=== PATIENT | male | born 1935 | race Caucasian/White ===

== ENCOUNTER 2017-01-31 09:23 | Emergency (ER) | payer MEDICARE ==
[2017-01-31] MEDS ORDERED: Ketorolac INJ* 60 MG/2 ML VIAL IM ONE (10:54)
[2017-01-31] MEDS ORDERED: LORazepam TAB(*) 1 MG PO ONE (10:54)
[2017-01-31] MEDS ORDERED: Morphine INJ* 4 MG/ML 1 ML SYRINGE IM ONE (12:09)
[2017-01-31 14:38] VITALS: BP 127/74
--- NOTE | 2017-01-31 14:50 | ED ---
I, Oh,Sobrian, scribed for Nestor Mosquera MD on 01/31/17 at 1113 . Back Pain - HPI Summary HPI Summary: This 81 y/o male presents to ED via ambulance for acute on chronic left lower back pain since 3 days ago. No radiation of pain down legs. Pt states that he "twisted wrong" at time of onset, and pain has been gradually worsening since then. Pt had trouble ambulating this morning due to pain this morning, and decided to call ambulance. Negative bowel/urinary incontinence or dysuria. Walking and leg movement make the pain worse. Pt took oxycodone this morning 0700 AM without much relief. Pt is noted with back belt in ED room. PMHx is significant for known chronic back pain. - History of Current Complaint Chief Complaint: EDBackInjuryPain Stated Complaint: LOWER BACK PAIN Time Seen by Provider: 01/31/17 10:07 Hx Obtained From: Patient, Medical Records Onset/Duration: Still Present Onset/Duration: Still Present Timing: Constant Back Pain Location: Is Discrete @ - left lower back pain Pain Intensity: 9 Pain Scale Used: 0-10 Numeric Character: Spasmodic Aggravating Symptom(s): Movement, Walking Alleviating Symptom(s): Rest Associated Signs And Symptoms: Negative: Bladder Incontinence, Bowel Incontinence - Allergies/Home Medications Allergies/Adverse Reactions: Allergies Allergy/AdvReac Type Severity Reaction Status Date / Time No Known Allergies Allergy Verified 04/13/14 06:24 PMH/Surg Hx/FS Hx/Imm Hx Cardiovascular History: Reports: Hx Pacemaker/ICD Infectious Disease History: No Infectious Disease History: Denies: Traveled Outside the [place] in Last 30 Days - Family History Known Family History: Positive: Cardiac Disease - Social History Alcohol Use: None Substance Use Type: Reports: None Smoking Status (MU): Never Smoked Tobacco Review of Systems Negative: Fever Negative: dysuria, incontinence Positive: Other - acute on chronic left lower back pain All Other Systems Reviewed And Are Negative: Yes Physical Exam Triage Information Reviewed: Yes Vital Signs On Initial Exam: Initial Vitals Temp Pulse Resp BP Pulse Ox 98.7 F 86 16 142/79 98 01/31/17 09:29 01/31/17 09:29 01/31/17 09:29 01/31/17 09:29 01/31/17 09:29 Vital Signs Reviewed: Yes Appearance: Positive: Well-Appearing, Pain Distress Skin: Positive: Warm, Skin Color Reflects Adequate Perfusion, Dry Head/Face: Positive: Normal Head/Face Inspection Eyes: Positive: Normal ENT: Positive: Normal ENT inspection Neck: Positive: Supple, Nontender Respiratory/Lung Sounds: Positive: Breath Sounds Present Cardiovascular: Positive: RRR, Pulses are Symmetrical in both Upper and Lower Extremities Abdomen Description: Positive: Nontender, Soft Neurological: Positive: Other - Positive right straight leg -- pain at left lower back with raise of RLE and LLE. Psychiatric: Positive: Affect/Mood Appropriate AVPU Assessment: Alert - Arianna Coma Scale Coma Scale Total: 15 Diagnostics - Vital Signs Vital Signs Temp Pulse Resp BP Pulse Ox 01/31/17 09:31 98.7 F 86 16 142/79 98 01/31/17 09:29 98.7 F 86 16 142/79 98 - Laboratory Lab Statement: Any lab studies that have been ordered have been reviewed, and results considered in the medical decision making process. Re-Evaluation - Re-Evaluation First Eval Re-Evaluation Time: 13:51 Comment: in room to re-evaluate pt. Pt's pain is resolved after morphine treatment. Plan of care involving discharge and outpatient f/u is discussed, and pt is agreeable. Back Pain Course/Dx - Course Course Of Treatment: Mr. Bee wrenched his back last week and it has been gradually worsening to the point that he was unable to get up and move around today. He was neurologically intact here and got significant relief with pain meds and muscle relaxers. - Diagnoses Provider Diagnoses: Acute exacerbation of chronic low back pain, Low back strain Discharge - Discharge Plan Condition: Stable Disposition: HOME Prescriptions: LORazepam TAB(*) [Ativan TAB(*)] 1 mg PO Q6H PRN #20 tab MDD 4 PRN Reason: Pain oxyCODONE/Acetamin 5/325 MG* [Percocet 5/325 TAB*] 1 tab PO Q6H PRN #20 tab MDD 4 PRN Reason: Pain Patient Education Materials: Low Back Strain (ED), Lorazepam (By mouth), Oxycodone/Acetaminophen (By mouth) Referrals: Chun West MD [Primary Care Provider] - 2 Days The documentation as recorded by the Saroj clifton Soohyun accurately reflects the service I personally performed and the decisions made by me, Nestor Mosquera MD.
== END 2017-01-31 14:38 | disposition home or self-care (01) ==
LOC: ED 09:23
DX: S39.012A Strain of muscle, fascia and tendon of lower back, initial encounter (principal); M54.5 Low back pain; X50.9XXA Other and unspecified overexertion or strenuous movements or postures, initial encounter; Y93.9 Activity, unspecified; Y92.9 Unspecified place or not applicable
CPT/HCPCS: 96372; 99282; A9270-GY; J1885; J2270

== ENCOUNTER 2018-10-25 01:07 | Emergency (ER) | payer MEDICARE ==
[2018-10-25] MEDS ORDERED: Lidocaine PATCH 5%* 1 PATCH TRANSDERM ONE (01:27)
[2018-10-25] MEDS ORDERED: Morphine 4 MG/ML VIAL (1 ml) 4 MG/ML VIAL IM ONE (01:27)
--- NOTE | 2018-10-25 01:51 | ED ---
Back Pain - HPI Summary HPI Summary: The patient is an 83 y/o M presenting to [facility] accompanied by daughter with a chief complaint of mid lumbar back pain worse on the right than left starting onset one week ago with gradual worsening intermittently. The stabbing pain is currently rated 8/10 in severity. The pain is aggravated by movement and alleviated by rest. He denies numbness, tingling, changes in urination, and weakness. He has experienced this pain before and has taken Oxycodone and Lorazepam before; he has taken one Oxycodone a few days ago and arthritis Tylenol at 2300 last night. He is concerned because the pain he had experienced before tended to relieve itself. He denies known previous back injury. - History of Current Complaint Chief Complaint: EDBackInjuryPain Stated Complaint: BACK PAIN Time Seen by Provider: 10/25/18 01:38 Hx Obtained From: Patient Onset/Duration: Sudden Onset, Lasting Days - one week, Still Present Onset/Duration: Started Days Ago, Atraumatic, Still Present Timing: Lasting Days Back Pain Location: Is Discrete @ - lumbar back, worse on right than left Severity Initially: Severe Severity Currently: Severe Pain Intensity: 8 Pain Scale Used: 0-10 Numeric Character: Sharp Aggravating Symptom(s): Movement Alleviating Symptom(s): Rest Associated Signs And Symptoms: Positive: Other - NEGATIVE: changes in urination. Negative: Weakness, Numbness, Tingling - Allergies/Home Medications Allergies/Adverse Reactions: Allergies Allergy/AdvReac Type Severity Reaction Status Date / Time No Known Allergies Allergy Verified 04/13/14 06:24 PMH/Surg Hx/FS Hx/Imm Hx Cardiovascular History: Reports: Hx Atrial Fibrillation, Hx Pacemaker/ICD Infectious Disease History: No Infectious Disease History: Denies: Traveled Outside the [place] in Last 30 Days - Family History Known Family History: Positive: Cardiac Disease - Social History Alcohol Use: None Substance Use Type: Reports: None Smoking Status (MU): Never Smoked Tobacco Review of Systems Positive: other - NEGATIVE: changes in urination Positive: Other - mid-low back pain, right side worse than left Negative: Weakness, Numbness - or tingling All Other Systems Reviewed And Are Negative: Yes Physical Exam - Summary Physical Exam Summary: Appearance: well appearing, no pain distress Skin: warm, dry, reflects adequate perfusion Head/face: normal Eyes: EOMI, BUTCH ENT: mucous membranes moist Neck: supple, non-tender Respiratory: CTA, breath sounds present Cardiovascular: RRR, pulses symmetrical Abdomen: non-tender, soft, Ventral hernia, no pulsatile mass Bowel Sounds: present Musculoskeletal: strength/ROM intact, Point tenderness on right lateral mid-back Neuro: normal, sensory motor intact, A&Ox3 Triage Information Reviewed: Yes Vital Signs On Initial Exam: Initial Vitals Temp Pulse Resp BP Pulse Ox 97.1 F 77 16 170/94 98 10/25/18 01:11 10/25/18 01:11 10/25/18 01:11 10/25/18 01:11 10/25/18 01:11 Vital Signs Reviewed: Yes Diagnostics - Vital Signs Vital Signs Temp Pulse Resp BP Pulse Ox 10/25/18 01:31 18 10/25/18 01:22 79 171/80 99 10/25/18 01:11 97.1 F 77 16 170/94 98 - Laboratory Lab Statement: Any lab studies that have been ordered have been reviewed, and results considered in the medical decision making process. Back Pain Course/Dx - Course Course Of Treatment: Nurses notes reviewed. Patient with a history of low back pain presents with right-sided muscular pain. It limits his range of motion but was improved significantly with Lidoderm patch and treatment for pain. His range of motion has returned. No pulsatile abdominal mass and no radicular signs. Neuromuscularly intact discharged with symptom control to follow-up with primary care physician and chiropractor. - Diagnoses Differential Diagnosis/HQI/PQRI: Positive: Aneurysm, Herniated Disc, Strain, Sprain Provider Diagnoses: Lumbar back pain Discharge - Sign-Out/Discharge Documenting (check all that apply): Patient Departure - Patient will be discharged home. Patient Received Moderate/Deep Sedation with Procedure: No - Discharge Plan Condition: Improved Disposition: HOME Prescriptions: Cyclobenzaprine (NF) [Cyclobenzaprine 5 MG (NF)] 5 mg PO TID PRN #10 tab PRN Reason: muscle pain traMADol TAB* [Ultram*] 50 mg PO Q8HR #8 tab MDD 3 Patient Education Materials: Low Back Strain (ED) Referrals: Chun West MD [Primary Care Provider] - Additional Instructions: Ice, range of motion exercises, Tylenol for baseline pain. Call your doctor first thing in the morning to schedule prompt follow-up. point of care technician may help. Return with fever, difficulty urinating, uncontrolled pain, worse or other concerns. - Billing Disposition and Condition Condition: IMPROVED Disposition: Home - Attestation Statements Document Initiated by Lynsey: Yes Documenting Scribe: Aleah Powers Provider For Whom Lynsey is Documenting (Include Credential): Dr. John House MD Scribe Attestation: Aleah Rachel scribed for Dr. John House MD on 10/25/18 at 0408. Scribe Documentation Reviewed: Yes Provider Attestation: The documentation as recorded by the Aleah clifton accurately reflects the service I personally performed and the decisions made by me, Dr. John House MD Status of Scribe Document: Viewed
--- OUTSIDE RECORDS SUMMARY | 2018-10-25 01:56 | XMS REPORT | Continuity of Care Document ---
:1935 External Reference #:[id number] Author Name Sandra Zuluaga Care Team Providers Name Role Phone Aman Segal III, MD Primary Care Physician Unavailable Payers Date Identification Numbers Payment Provider Subscriber Policy Number: [id number] Medicare Carolyn María Moe PayID: [id number] [address] [place] [address] Policy Number: [id number] [facility] Carolyn Rosa PayID: [id number] [address] [place] [address] Expires: 2017 Policy Number: [id number] [facility] [employer] Carolyn Rosa Group Number: [id number] [address] [address] PayID: [id number] [place] [address] Advance Directives Description No Information Available Problems Active Problems Provider Date Paroxysmal ventricular tachycardia Zeina España M.D. Onset: 11/04/2013 Chronic atrial fibrillation Zeina España M.D. Onset: 10/08/2015 Complete atrioventricular block Zeina España M.D. Onset: 04/21/2016 Chronic diastolic heart failure Zeina España M.D. Onset: 04/21/2016 Anticoagulant therapy Chun Reynolds M.D.,FACP Onset: 06/07/2007 Benign essential hypertension Chun Reynolds M.D.,FACP Onset: 06/07/2007 Mixed hyperlipidemia Chun Reynolds M.D.,FACP Onset: 12/05/2007 Impaired fasting glycaemia Chun Reynolds M.D.,FACP Onset: 06/01/2010 Low back pain Chun Reynolds M.D.,FACP Onset: 10/14/2010 Cardiac pacemaker in situ Zeina España M.D. Onset: 11/04/2013 Note: not AICD Localized, primary osteoarthritis of the shoulder Law Stubbs MD Onset: region Inactive Problems Atrial flutter Chun Reynolds M.D.,FACP Onset: 06/07/2007 Inactive: 03/30/2015 Atrial fibrillation Chun Reynolds M.D.,FACP Onset: 01/06/2011 Inactive: 03/30/2015 Congestive heart failure Zeina España M.D. Onset: 11/04/2013 Inactive: 10/30/2016 Atrial fibrillation and flutter Chun Reynolds M.D.,FACP Onset: 2014 Inactive: 10/30/2016 Pure hypercholesterolemia Chun Reynolds M.D.,FACP Onset: 05/19/2011 Inactive: 10/30/2016 Sinus node dysfunction Zeina España M.D. Onset: 10/08/2015 Inactive: 10/30/2016 Localized, primary osteoarthritis Law Stubbs MD Onset: 10/24/2017 Inactive: 11/29/2017 Family History Date Family Member(s) Observation Comments : (age 76 Years) Father due to CAD : (age 89 Years) Mother due to Leukemia First Son detached retina Siblings 1 First Sister Cancer, Breast First Sister Osteoporosis ?hip fracture Social History Type Date Description Comments Sex Unknown Marital Status Lives With Alone Occupation Retired Occupation Registered Nurse Nursery Cigarette Use Quit 45 Years Ago ETOH Use 12/06/2016 Denies alcohol use Recreational Drug Use Denies Drug Use Tobacco Use Start: Unknown End: Patient is a former smoked for 15 Unknown smoker years, quit in 1962 Smoking Status Reviewed: 10/22/18 Patient is a former smoked for 15 smoker years, quit in 1962 Exercise Type/Frequency Does not exercise Allergies, Adverse Reactions, Alerts Active Allergies Reaction Severity Comments Date Kenalog BP elevated for 2 months 12/06/2016 Inactive Allergies NKDA 06/07/2007 Medications Active Medications SIG Qnty Indications Ordering Date Provider Dutasteride Take 1 Capsule By 30caps N40.0 Chun Mcfarland 07/27/2018 0.5mg Mouth Every Day Lulu Reynolds,EDMUNDP Capsules Viagra take one tablet 14tabs N52.01 Chun Mcfarland 06/08/2018 100mg Tablets at least 30 Lulu Reynolds,FACP mintues prior to intercourse. Lorazepam one tab by mouth 30tabs F51.8 Chun Mcfarland 03/14/2017 0.5mg Tablets every day as Lulu Reynolds,FACP needed Atorvastatin Calcium take 1 tablet by 90tabs Chun Mcfarland 12/06/2016 mouth at bedtime Lulu Reynolds,EDMUNDP 10mg Tablets Carvedilol 1 by mouth twice 180tabs I10 Zeina España, 05/24/2016 6.25mg a day M.DPhillip Tablets Aldactone take one tab 4 90tabs Zeina España, 05/10/2016 25mg Tablets days a week M.DPhillip Colestipol HCL take 1 tablet 180tabs Zeina España, 01/12/2016 1gm twice a day M.DPhillip Tablets Esomeprazole take 1 capsule 90caps Chun Mcfarland 04/22/2015 Magnesium daily Lulu Reynolds,EDMUNDP 20mg Capsules DR Celecoxib take 1 capsule 180caps Chun Mcfarland 03/15/2015 200mg twice a day as Lulu Reynolds,EDMUNDP Capsules needed ( taking 1 tablet every day generally ) Furosemide take 2 tablets on 320tabs Aman E. 05/03/2014 20mg Tablets mondayLuzma M.D. monday, monday and monday and take 3 tablets on monday, , monday Pradaxa take 1 capsule 180caps I48.92 Chun Mcfarland 10/14/2010 150mg Capsules twice a day Lulu Reynolds FACP Aspirin 1 po qd 50tabs Chun Mcfarland 05/22/2009 81mg Tablets Lulu Reynolds,EDMUNDP Sotalol HCL take one-half 90tabs Zeina España, 05/22/2009 80mg (1/2) tablet Lulu Tablets twice a day Coq-10 1 by mouth every 90caps Unknown 100mg Capsules day History Medications Iron 1 by mouth every 30tabs Chun Mcfarland 06/20/2017 - 240(27Fe) mg day Lulu Reynolds,[facility] 11/29/2017 Tablets Norvasc 1 by mouth every 90tabs Zeina España, 09/09/2016 - 5mg Tablets day M.DPhillip 11/23/2016 Viagra 1 by mouth as 10tabs N52.01 Chun Mcfarland 06/13/2016 - 50mg Tablets needed Lulu Reynolds,FACP 06/08/2018 Pravastatin Sodium 1 tablet daily at 90tabs Mary Sharma, 06/13/2016 - bedtime N.P. 12/06/2016 40mg Tablets Cephalexin take one capsule 21caps M79.675 Keaton Walsh NP 01/15/2016 - 500mg every 8 hours for 01/23/2016 Capsules 7 days Magnesium Oxide by mouth every 30caps G47.62 Chun Mcfarland 12/08/2015 - evening Lulu Reynolds,FACP 04/23/2016 400mg Capsules Cephalexin one 3 times daily 12tabs Z95.0 Zeina España, 10/08/2015 - 500mg for 4 days, M.DPhillip 10/18/2015 Tablets start after pacemaker generator change. Viagra 1 by mouth as 10tabs N52.01 Chun Mcfarland 06/10/2015 - 50mg Tablets needed Lulu Reynolds,[facility] 04/23/2016 Prednisone 5tabx 2days,4 30tabs 729.5 Arya Ramos NP 02/25/2015 - 10mg [id number] 04/23/2015 Tablets [id number] ays,1tabxday. Colestid po bid 180tabs Chun Mcfarland 07/18/2013 - 1gm Id#[id number] Lulu Reynolds,[facility] 12/04/2013 Tablets Lorazepam take 1 tablet as 30tabs F51.8 Mary Sharma, 10/30/2012 - 0.5mg needed for N.P. 02/02/2017 Tablets anxiety. Lorazepam 1/2-1 tab po qhs 30tabs 307.49 Amy De La Vega, 10/16/2012 - 1mg N.P. 10/30/2012 Tablets Lisinopril Take One-Half 45tabs Amy De La Vega, 06/12/2012 - 20mg (1/2) Tablet Daily N.P. 04/23/2015 Tablets Debrox 5 drops in each 1bottle 380.4 Chun Mcfarland 12/06/2011 - 6.5% ear every 3 months [facility]ulu [facility] 06/06/2012 Solution Furosemide po qam Chun Mcfarland 11/17/2011 - 40mg Lulu [facility] 11/17/2011 Tablets Atorvastatin 2 po qd 150tabs 530.81 Unknown 11/17/2011 - Calcium 10/30/2012 10mg Tablets Pravastatin Sodium Take 1 Tablet AT 90tabs Chun Mcfarland 05/19/2011 - Bedtime Lulu Reynolds,[facility] 06/13/2016 20mg Tablets Celebrex take 1 capsule 90capish Mcfarland 03/15/2011 - 200mg daily as needed ( Lulu Reynolds,[facility] 03/15/2015 Capsules pt taking daily) Celebrex 1 po qd 30caps Chun Mcfarland 01/06/2011 - 100mg Lulu Reynolds,[facility] 03/15/2011 Capsules Celebrex 1 po qd 30caps Chun Mcfarland 01/06/2011 - 200mg Lulu [facility] 01/06/2011 Capsules Doxycycline Hyclate 1 po bid 14tabs Aman Saavedra 12/24/2010 - Lulu Segal 01/06/2011 100mg Tablets Celebrex 1 po qd 30caps Chun Mcfarland 12/07/2010 - 200mg [facility]ulu [facility] 01/06/2011 Capsules Pravastatin Sodium 1 po qpm 90tabs Aman Saavedra 06/01/2010 - Lulu Segal 05/19/2011 40mg Tablets Fish Oil 1 po bid Chun Mcfarland 06/01/2010 - 1000mg Lulu Reynolds,[facility] 06/06/2012 Capsules Pravastatin Sodium 1 po qhs 90tabs Chun Mcfarland 05/22/2009 - Id#[id number] Lulu Reynolds,[facility] 06/01/2010 20mg Tablets Lamisil po every day 30tabs 110.1 Chun Mcfarland 05/22/2009 - 250mg Lulu Reynolds,[facility] 11/25/2009 Tablets Atenolol Take 1 Tablet 180tabs I10 Chun Mcfarland 05/22/2009 - 25mg Twice A Day Lulu Reynolds,[facility] 05/24/2016 Tablets Skelaxin 1 po tid prn 30tabs 724.9 Chun Mcfarland 03/30/2009 - 800mg Lulu Reynolds,[facility] 05/22/2009 Tablets Lyrica 1 po bid 14caps 724.3 Chun Mcfarland 04/14/2008 - 50mg Lulu Reynolds,[facility] 05/19/2008 Capsules Clarinex 2 po qd prn 90tabs Aman Saavedra 04/14/2008 - 5mg Lulu Segal 04/17/2014 Tablets Nexium Take 1 Capsule 90caps Chun Mcfarland 12/05/2007 - 20mg Daily Lulu Reynolds,[facility] 04/22/2015 Capsules Lisinopril Take One-Half 45tabs Chun Mcfarland 12/05/2007 - 20mg (1/2) Tablet Daily Lulu Reynolds,[facility] 06/06/2012 Tablets Avodart take 1 capsule 30caps N40.0 Aman Saavedra 12/05/2007 - 0.5mg daily Lulu Segal 07/27/2018 Capsules Avodart Take 1 Capsule 90caps 600.90 Chun Mcfarland 12/05/2007 - 0.5mg Daily Lulu Reynolds,[facility] 06/06/2012 Capsules Avodart 1 po qd 90caps 600.90 Chun Mcfarland 12/05/2007 - 0.5mg Id#[id number] Lulu Reynolds,[facility] 08/12/2011 Capsules Aspir-81 1 PO qd Chun Mcfarland 12/05/2007 - 81mg Lulu Reynolds,[facility] 05/22/2009 Tablets Atenolol 1 po qd 90tabs Chun Mcfarland 12/05/2007 - 25mg Lulu Reynolds,FACP 10/20/2008 Tablets Nifedipine ER 1 po qam 90tabs Aman Saavedra 12/05/2007 - 30mg Id#[id number] Lulu Segal 05/06/2012 Tablets ER 24HR Sotalol HCL bid po 30tabs Chun Mcfarland 06/07/2007 - 120mg Lulu Reynolds,FACP 05/22/2009 Tablets Simvastatin 1 po qhs 90tabs Chun Mcfarland 06/07/2007 - 40mg Lulu Reynolds,FACP 03/30/2009 Tablets Warfarin Sodium take 1 tablet 90taclarence Mcfarland 06/07/2007 - 5mg every evening or Lulu Reynolds,[facility] 10/29/2010 Tablets as directed Id#[id number] Colestid po bid 180tabs Aman Saavedra 06/07/2007 - 1gm Id#[id number] Lulu Segal 05/06/2012 Tablets Oxycodone-Acetamino 1-2 tabs by mouth Unknown - phen every 4-6 hours as 03/14/2017 5-325mg needed for pain Tablets Lorazepam 1 by mouth daily F51.8 Unknown - 1mg 03/14/2017 Tablets Nifedipine ER Take 1 Tablet 90tabs Chun Mcfarland - Osmotic Release Every Morning Lulu Reynolds,[facility] 04/28/2016 30mg Tablets ER 24HR Clarinex 2 by mouth every Unknown - 5mg day prn 07/03/2015 Tablets Micronized Take 1 Tablet 180tabs Chun Mcfarland - Colestipol HCL Twice A Day Lulu Reynolds,[facility] 01/12/2016 1gm Tablets Fluorouracil apply twice day Unknown - 0.5% 04/23/2015 Cream Furosemide 1 po qd Unknown - 40mg 05/03/2014 Tablets Furosemide Take 3 tabs every 150tabs Unknown - 20mg other day, 04/02/2014 Tablets alternating with 2 tabs Zyclara prn Unknown - 3.75% Cream 03/07/2014 Hydrocodone/Acetami 1 qid prn 120tabs Chun Mcfarland - johnnie Reynolds M.D.,FACP 01/06/2011 5-500mg Tablets Medications Administered in Office Medication SIG Qnty Indications Ordering Provider Date Injection Hyaluronan Or Helena Noland PA-C 11/08/2017 Derivative, Euflexxa Per Dose Injection Injection Hyaluronan Or Law Stubbs MD 10/31/2017 Derivative, Euflexxa Per Dose Injection Injection Hyaluronan Or Law Stubbs MD 10/24/2017 Derivative, Euflexxa Per Dose Injection Triamcinolone (Kenalog) Law Stubbs MD 04/21/2016 Injection Triamcinolone (Kenalog) Law Stubbs MD 04/21/2016 Injection Triamcinolone (Kenalog) Law Stubbs MD 11/12/2015 Injection Inj, Regadenoson, 0.1 MG Vincent Royal M.D., 04/29/2014 Injection FACC, FASNC Technetium TC 99M Vincent Royal M.D., 04/29/2014 Tetrofosmin, Per Unit Dose Up FACC, FASNC To 40 Millicuries Injection Technetium TC 99M Zeina España M.D. 04/29/2014 Tetrofosmin, Per Unit Dose Up To 40 Millicuries Injection Immunizations CPT Code Status Date Vaccine Lot # [id number] Given 04/03/2018 Influenza Virus Vaccine, Quadrivalent, Split, Preservative Free [id number] Given 03/15/2017 Influenza Virus 3Yrs & Over Q2035 Given 03/30/2016 Afluria Vaccine 33631 Given 06/10/2015 Pneumococcal Conjugate Vaccine 13 Valent For [id number] Intramuscular Use Q2035 Given 03/28/2015 Afluria Vaccine Q2037 Given 04/01/2014 Fluvirin Im 3Yrs And Older Q2035 Given 05/01/2013 Afluria Vaccine [id number] Given 04/11/2013 Zoster (Zostavax) Q2037 Given 05/01/2012 Fluvirin Im 3Yrs And Older [id number] Q2037 Given 05/01/2012 Fluvirin Im 3Yrs And Older 08775 Given 11/17/2011 Tdap - Tetanus/Diptheria/Acellular Pertussis [id number] Q2038 Given 04/11/2011 Fluzone Vaccine [id number] Given 04/26/2010 Influenza Virus 3Yrs & Over [id number] 15861 Given 05/22/2009 Influenza Virus Vaccine, Pandemic Formulation [id number] 61274 Given 04/14/2008 Influenza Virus 3Yrs & Over 02145 Given 04/14/2008 Influenza Virus 3Yrs & Over [id number] 71905 Given 04/25/2007 Pneumonia Vaccine [id number] Refused 08/12/2009 Influenza Virus 3Yrs & Over Vital Signs Date Vital Result Comment 10/22/2018 1:23pm Height 70 inches 5'10" Weight 212.00 lb Heart Rate 83 /min BP Systolic 118 mmHg BP Diastolic 78 mmHg Body Temperature 97.5 F O2 % BldC Oximetry 97 % BMI (Body Mass Index) 30.4 kg/m2 05/22/2018 11:32am Height 70 inches 5'10" Weight 214.00 lb with shoes Heart Rate 76 /min BP Systolic Sitting 110 mmHg Lue reg cuff BP Diastolic Sitting 64 mmHg Lue reg cuff BP Systolic Standing 110 mmHg Lue reg cuff BP Diastolic Standing 70 mmHg Lue reg cuff Respiratory Rate 16 /min BMI (Body Mass Index) 30.7 kg/m2 12/15/2017 2:47pm Height 70 inches 5'10" Weight 213.00 lb with shoes Heart Rate 80 /min BP Systolic Sitting 134 mmHg Rue reg cuff BP Diastolic Sitting 76 mmHg Rue reg cuff BP Systolic Standing 136 mmHg Rue reg cuff BP Diastolic Standing 80 mmHg Rue reg cuff Respiratory Rate 16 /min BMI (Body Mass Index) 30.6 kg/m2 Ejection Fraction 50-55% 11/08/2017-echo 11/29/2017 9:46am Height 70 inches 5'10" Weight 212.00 lb Heart Rate 89 /min BP Systolic Sitting 120 mmHg BP Diastolic Sitting 70 mmHg BP Systolic Recheck 118 mmHg BP Diastolic Recheck 68 mmHg Body Temperature 97.1 F O2 % BldC Oximetry 96 % BMI (Body Mass Index) 30.4 kg/m2 11/08/2017 11:08am Height 70 inches 5'10" Weight 208.00 lb BP Systolic 110 mmHg BP Diastolic 66 mmHg Respiratory Rate 18 /min Body Temperature 95.2 F Pain Level 3 BMI (Body Mass Index) 29.8 kg/m2 10/31/2017 9:08am Height 70 inches 5'10" Weight 208.00 lb Heart Rate 84 /min BP Systolic 130 mmHg BP Diastolic 82 mmHg Respiratory Rate 16 /min Body Temperature 96.7 F Pain Level 4 intermittent with weight bearing BMI (Body Mass Index) 29.8 kg/m2 10/24/2017 9:55am Height 70 inches 5'10" Weight 208.00 lb BP Systolic 126 mmHg BP Diastolic 74 mmHg Respiratory Rate 20 /min Pain Level 4 BMI (Body Mass Index) 29.8 kg/m2 10/17/2017 9:04am Height 70 inches 5'10" Weight 208.00 lb Heart Rate 70 /min BP Systolic 134 mmHg BP Diastolic 70 mmHg Body Temperature 96.0 F Pain Level 7 BMI (Body Mass Index) 29.8 kg/m2 05/30/2017 9:35am Height 70 inches 5'10" Weight 217.00 lb with shoes Heart Rate 86 /min BP Systolic Sitting 120 mmHg Rue lg cuff BP Diastolic Sitting 72 mmHg Rue lg cuff BP Systolic Standing 128 mmHg Rue lg cuff BP Diastolic Standing 80 mmHg Rue lg cuff Respiratory Rate 17 /min BMI (Body Mass Index) 31.1 kg/m2 Ejection Fraction 50-55% date 04/22/16 ECHO 05/29/2017 1:59pm Height 70 inches 5'10" Weight 215.00 lb Heart Rate 83 /min BP Systolic Sitting 132 mmHg BP Diastolic Sitting 80 mmHg Body Temperature 96.4 F O2 % BldC Oximetry 99 % BMI (Body Mass Index) 30.8 kg/m2 03/15/2017 2:12pm Height 70 inches 5'10" Weight 212.12 lb Heart Rate 84 /min BP Systolic Sitting 138 mmHg BP Diastolic Sitting 72 mmHg Respiratory Rate 16 /min Body Temperature 97.8 F Pain Level 4 bilateral ankle pain BMI (Body Mass Index) 30.4 kg/m2 02/02/2017 9:02am Weight 214.38 lb Heart Rate 78 /min BP Systolic Sitting 128 mmHg BP Diastolic Sitting 70 mmHg Body Temperature 97.1 F O2 % BldC Oximetry 98 % 12/06/2016 9:51am Weight 218.50 lb Heart Rate 90 /min BP Systolic Sitting 110 mmHg BP Diastolic Sitting 60 mmHg Body Temperature 96.2 F O2 % BldC Oximetry 97 % 11/03/2016 1:05pm Height 69.25 inches 5'9.25" Weight 217.00 lb without shoes Heart Rate 80 /min BP Systolic Sitting 120 mmHg Rue lg cuff BP Diastolic Sitting 86 mmHg Rue lg cuff BP Systolic Standing 120 mmHg Rue lg cuff BP Diastolic Standing 80 mmHg Rue lg cuff Respiratory Rate 17 /min BMI (Body Mass Index) 31.8 kg/m2 Ejection Fraction 50-55% date 04/22/2016 ECHO 06/13/2016 9:44am Height 69.25 inches 5'9.25" Weight 209.00 lb Heart Rate 80 /min BP Systolic 110 mmHg BP Diastolic 64 mmHg Body Temperature 97.3 F O2 % BldC Oximetry 98 % BMI (Body Mass Index) 30.6 kg/m2 06/07/2016 9:10am Height 70 inches 5'10" Weight 207.00 lb Heart Rate 78 /min BP Systolic Sitting 140 mmHg L arm , Large cuff BP Diastolic Sitting 80 mmHg L arm , Large cuff BP Systolic Standing 130 mmHg BP Diastolic Standing 80 mmHg Respiratory Rate 20 /min BMI (Body Mass Index) 29.7 kg/m2 Ejection Fraction 50-55% 04/201605/24/2016 8:43am Height 70 inches 5'10" Weight 207.00 lb No shoes Heart Rate 80 /min BP Systolic Standing 172 mmHg Rue reg cuff BP Diastolic Standing 102 mmHg Rue reg cuff BP Systolic Lying Down 170 mmHg Rue reg cuff BP Diastolic Lying Down 98 mmHg Rue reg cuff Respiratory Rate 18 /min BMI (Body Mass Index) 29.7 kg/m2 Ejection Fraction 50-55% as of 04/22/16 echo 04/21/2016 2:02pm Height 70 inches 5'10" Weight 220.00 lb with shoes Heart Rate 80 /min BP Systolic Sitting 125 mmHg Lue reg cuff BP Diastolic Sitting 78 mmHg Lue reg cuff BP Systolic Standing 134 mmHg Lue reg cuff BP Diastolic Standing 78 mmHg Lue reg cuff Respiratory Rate 18 /min BMI (Body Mass Index) 31.6 kg/m2 Ejection Fraction 53% echo 09/14/13 04/21/2016 8:46am Height 70 inches 5'10" Weight 212.00 lb Heart Rate 60 /min Respiratory Rate 16 /min Pain Level 4 BMI (Body Mass Index) 30.4 kg/m2 01/26/2016 10:13am Weight 212.00 lb Heart Rate 90 /min BP Systolic Sitting 122 mmHg BP Diastolic Sitting 70 mmHg Respiratory Rate 14 /min Body Temperature 97.6 F O2 % BldC Oximetry 96 % 01/15/2016 2:05pm Weight 212.00 lb with shoes Heart Rate 91 /min BP Systolic Sitting 114 mmHg BP Diastolic Sitting 74 mmHg Body Temperature 96.9 F O2 % BldC Oximetry 98 % 12/08/2015 1:41pm Weight 213.00 lb with shoes Heart Rate 88 /min BP Systolic Sitting 120 mmHg BP Diastolic Sitting 80 mmHg Body Temperature 97.3 F O2 % BldC Oximetry 97 % 11/12/2015 8:28am Height 70 inches 5'10" Weight 213.00 lb Heart Rate 84 /min BP Systolic 125 mmHg BP Diastolic 80 mmHg Pain Level 5 to 8 BMI (Body Mass Index) 30.6 kg/m2 10/20/2015 12:49pm Height 69.75 inches 5'9.75" Weight 219.00 lb w/o shoes Heart Rate 82 /min reg BP Systolic Sitting 116 mmHg Rue, reg cuff BP Diastolic Sitting 80 mmHg Rue, reg cuff BP Systolic Standing 114 mmHg Rue BP Diastolic Standing 80 mmHg Rue Respiratory Rate 18 /min BMI (Body Mass Index) 31.6 kg/m2 Ejection Fraction 53% as of 09/04/13 echo 10/13/2015 8:28am Weight 221.00 lb Heart Rate 64 /min BP Systolic Sitting 119 mmHg BP Diastolic Sitting 68 mmHg Body Temperature 96.1 F Pain Level 2 10/08/2015 1:56pm Height 70 inches 5'10" Weight 221.00 lb Heart Rate 64 /min BP Systolic Sitting 138 mmHg LA reg cuff BP Diastolic Sitting 84 mmHg LA reg cuff BP Systolic Standing 138 mmHg LA BP Diastolic Standing 84 mmHg LA Respiratory Rate 16 /min BMI (Body Mass Index) 31.7 kg/m2 Ejection Fraction 53% 09/04/13 06/10/2015 9:11am Height 70 inches 5'10" Weight 214.12 lb Heart Rate 86 /min BP Systolic Sitting 122 mmHg BP Diastolic Sitting 72 mmHg Body Temperature 96.3 F O2 % BldC Oximetry 98 % BMI (Body Mass Index) 30.7 kg/m2 04/27/2015 9:00am Height 70 inches 5'10" Weight 213.00 lb without shoes Heart Rate 86 /min BP Systolic Sitting 110 mmHg Ra lg cuff BP Diastolic Sitting 70 mmHg Ra lg cuff BP Systolic Standing 112 mmHg Ra lg cuff BP Diastolic Standing 70 mmHg Ra lg cuff Respiratory Rate 17 /min BMI (Body Mass Index) 30.6 kg/m2 Ejection Fraction 53% date 09/04/13 ECHO 02/25/2015 3:55pm Height 70 inches 5'10" Weight 211.50 lb Heart Rate 88 /min BP Systolic Sitting 116 mmHg BP Diastolic Sitting 64 mmHg Body Temperature 97.1 F Pain Level 7 O2 % BldC Oximetry 98 % BMI (Body Mass Index) 30.3 kg/m2 12/03/2014 8:27am Height 70 inches 5'10" Weight 212.00 lb Heart Rate 90 /min BP Systolic Sitting 111 mmHg BP Diastolic Sitting 75 mmHg Body Temperature 97.0 F BMI (Body Mass Index) 30.4 kg/m2 11/03/2014 9:11am Height 70 inches 5'10" Weight 213.00 lb w/o shoes Heart Rate 80 /min reg BP Systolic Sitting 114 mmHg Ra, reg cuff BP Diastolic Sitting 70 mmHg Ra, reg cuff BP Systolic Standing 116 mmHg Ra BP Diastolic Standing 66 mmHg Ra Respiratory Rate 18 /min BMI (Body Mass Index) 30.6 kg/m2 Ejection Fraction 53% 09/04/2013 06/06/2014 9:03am Height 70 inches 5'10" Weight 217.50 lb Heart Rate 83 /min BP Systolic Sitting 131 mmHg BP Diastolic Sitting 83 mmHg Body Temperature 96.6 F O2 % BldC Oximetry 96 % BMI (Body Mass Index) 31.2 kg/m2 05/06/2014 8:04am Height 70 inches 5'10" Weight 214.00 lb with shoes Heart Rate 80 /min BP Systolic Sitting 110 mmHg LA, reg cuff BP Diastolic Sitting 72 mmHg LA, reg cuff BP Systolic Standing 108 mmHg LA BP Diastolic Standing 74 mmHg LA Respiratory Rate 16 /min BMI (Body Mass Index) 30.7 kg/m2 04/18/2014 1:35pm Height 70 inches 5'10" Weight 207.00 lb without shoes Heart Rate 80 /min BP Systolic Sitting 110 mmHg Ra reg cuff BP Diastolic Sitting 70 mmHg Ra reg cuff BP Systolic Standing 110 mmHg Ra reg cuff BP Diastolic Standing 74 mmHg Ra reg cuff Respiratory Rate 16 /min BMI (Body Mass Index) 29.7 kg/m2 04/16/2014 4:37pm Weight 212.25 lb Heart Rate 88 /min BP Systolic Sitting 122 mmHg BP Diastolic Sitting 74 mmHg Body Temperature 98.1 F 03/07/2014 2:58pm Weight 211.00 lb Heart Rate 88 /min BP Systolic Sitting 124 mmHg BP Diastolic Sitting 80 mmHg 12/04/2013 8:27am Weight 210.50 lb Heart Rate 90 /min BP Systolic Sitting 118 mmHg BP Diastolic Sitting 64 mmHg Body Temperature 97.4 F 11/04/2013 9:15am Height 69.50 inches 5'9.50" Weight 208.00 lb with out shoes Heart Rate 90 /min BP Systolic Sitting 124 mmHg LA reg cuff BP Diastolic Sitting 80 mmHg LA reg cuff BP Systolic Standing 120 mmHg LA reg cuff BP Diastolic Standing 80 mmHg LA reg cuff Respiratory Rate 18 /min BMI (Body Mass Index) 30.3 kg/m2 06/05/2013 8:22am Height 70.25 inches 5'10.25" Weight 209.50 lb Heart Rate 88 /min BP Systolic Sitting 122 mmHg BP Diastolic Sitting 72 mmHg BMI (Body Mass Index) 29.8 kg/m2 10/30/2012 10:18am Height 70.25 inches 5'10.25" Weight 214.75 lb Heart Rate 88 /min BP Systolic Sitting 112 mmHg BP Diastolic Sitting 68 mmHg BMI (Body Mass Index) 30.6 kg/m2 10/16/2012 3:09pm Height 70 inches 5'10" Weight 214.50 lb Heart Rate 88 /min BP Systolic Sitting 117 mmHg BP Diastolic Sitting 76 mmHg BMI (Body Mass Index) 30.8 kg/m2 06/06/2012 10:36am Height 70.25 inches 5'10.25" Weight 220.00 lb Heart Rate 88 /min BP Systolic Sitting 110 mmHg BP Diastolic Sitting 76 mmHg BMI (Body Mass Index) 31.3 kg/m2 12/06/2011 1:50pm Height 71 inches 5'11" Weight 224.00 lb Heart Rate 76 /min BP Systolic Sitting 112 mmHg BP Diastolic Sitting 74 mmHg Body Temperature 97.3 F lt ear BMI (Body Mass Index) 31.2 kg/m2 11/17/2011 9:36am Height 71 inches 5'11" Weight 223.00 lb Heart Rate 84 /min BP Systolic Sitting 120 mmHg BP Diastolic Sitting 76 mmHg BMI (Body Mass Index) 31.1 kg/m2 05/19/2011 9:06am Height 71 inches 5'11" Weight 216.00 lb Heart Rate 78 /min BP Systolic Sitting 110 mmHg BP Diastolic Sitting 72 mmHg BMI (Body Mass Index) 30.1 kg/m2 02/08/2011 1:54pm Height 70 inches 5'10" Weight 218.00 lb Heart Rate 80 /min BP Systolic 118 mmHg BP Diastolic 70 mmHg BMI (Body Mass Index) 31.3 kg/m2 01/06/2011 11:02am Weight 215.00 lb Heart Rate 84 /min BP Systolic Sitting 128 mmHg BP Diastolic Sitting 76 mmHg 12/24/2010 4:28pm Weight 218.00 lb Heart Rate 88 /min BP Systolic Sitting 136 mmHg BP Diastolic Sitting 84 mmHg Body Temperature 97.6 F lt ear O2 % BldC Oximetry 97 % room air 12/15/2010 1:14pm Weight 222.00 lb Heart Rate 88 /min BP Systolic Sitting 142 mmHg BP Diastolic Sitting 76 mmHg 12/07/2010 2:52pm Heart Rate 84 /min BP Systolic 110 mmHg BP Diastolic 70 mmHg 10/14/2010 8:44am Weight 227.00 lb Heart Rate 70 /min BP Systolic Sitting 120 mmHg BP Diastolic Sitting 82 mmHg 06/01/2010 1:16pm Weight 224.00 lb Heart Rate 82 /min BP Systolic Sitting 114 mmHg BP Diastolic Sitting 74 mmHg 11/25/2009 9:13am Weight 226.00 lb Up 12# Heart Rate 80 /min BP Systolic Sitting 130 mmHg BP Diastolic Sitting 70 mmHg 05/22/2009 8:48am Height 71 inches 5'11" Weight 214.00 lb Heart Rate 75 /min BP Systolic Sitting 110 mmHg BP Diastolic Sitting 72 mmHg Respiratory Rate 16 /min Body Temperature 97.5 F O2 % BldC Oximetry 96 % BMI (Body Mass Index) 29.8 kg/m2 03/30/2009 9:57am Weight 220.00 lb Heart Rate 76 /min BP Systolic Sitting 118 mmHg BP Diastolic Sitting 76 mmHg 10/20/2008 10:02am Weight 232.00 lb Heart Rate 72 /min BP Systolic Sitting 114 mmHg BP Diastolic Sitting 74 mmHg 04/14/2008 8:27am Height 71 inches 5'11" Weight 217.00 lb Heart Rate 62 /min BP Systolic Sitting 120 mmHg BP Diastolic Sitting 64 mmHg BMI (Body Mass Index) 30.3 kg/m2 02/13/2008 11:24am Height 71 inches 5'11" Weight 213.00 lb Heart Rate 68 /min BP Systolic Sitting 126 mmHg BP Diastolic Sitting 80 mmHg BMI (Body Mass Index) 29.7 kg/m2 12/05/2007 8:49am Height 71 inches 5'11" Weight 219.00 lb Heart Rate 74 /min BP Systolic Sitting 118 mmHg BP Diastolic Sitting 62 mmHg BMI (Body Mass Index) 30.5 kg/m2 06/07/2007 1:35pm Height 71 inches 5'11" Weight 222.00 lb Heart Rate 70 /min BP Systolic Sitting 130 mmHg BP Diastolic Sitting 78 mmHg Respiratory Rate 18 /min Body Temperature 97.6 F BMI (Body Mass Index) 31.0 kg/m2 Results Test Date Facility Test Result H/L Range Note Basic Metabolic 04/26/2018 [facility] Sodium 139 mmol/L N 135- 145 Panel [address] [place] [address] [phone] Chloride 105 mmol/L N 101-111 Co2 Carbon Dioxide 27 mmol/L N 22-32 Glucose 96 mg/dL N 70-100 Blood Urea Nitrogen 26 mg/dL High 6-24 Creatinine 1.31 mg/dL High 0.67-1.17 BUN/Creatinine Ratio 19.8 N 8-20 Calcium 9.4 mg/dL N 8.6-10.3 Egfr Non- 52.4 >60 Egfr 63.4 >60 1 Potassium 5.2 mmol/L High 3.5-5.0 Anion Gap 7 mmol/L N 2-11 Laboratory test 04/26/2018 [facility] Magnesium 2.1 mg/dL N 1.9-2.7 finding [address] [place] [address] [phone] Laboratory test 04/23/2018 [facility] Magnesium <pending> finding [address] [place] [address] [phone] Comp Metabolic 12/18/2017 [facility] Sodium 141 mmol/L N 135- 145 Panel [address] [place] [address] [phone] Potassium 4.5 mmol/L N 3.5-5.0 Chloride 108 mmol/L N 101-111 Co2 Carbon Dioxide 24 mmol/L N 22-32 Anion Gap 9 mmol/L N 2-11 Glucose 94 mg/dL N 70-100 Blood Urea Nitrogen 19 mg/dL N 6-24 Creatinine 1.21 mg/dL High 0.67-1.17 BUN/Creatinine Ratio 15.7 N 8-20 Calcium 8.8 mg/dL N 8.6-10.3 Total Protein 6.2 g/dL Low 6.4-8.9 Albumin 3.7 g/dL N 3.2-5.2 Globulin 2.5 g/dL N 2-4 Albumin/Globulin Ratio 1.5 N 1-3 Total Bilirubin 0.90 mg/dL N 0.2-1.0 Alkaline Phosphatase 80 U/L N 34-104 Alt 12 U/L N 7-52 Ast 21 U/L N 13-39 Egfr Non- 57.4 >60 Egfr 73.8 >60 2 Lipid Profile 12/18/2017 [facility] Triglycerides 114 mg/dL 3 (Trig/Chol/HDL) [address] [place] [address] [phone] Cholesterol 154 mg/dL 4 HDL Cholesterol 37.0 mg/dL 5 LDL Cholesterol 94 mg/dL 6 Laboratory test 12/15/2017 [facility] Ast (Sgot) <pending> finding [address] [place] [address] [phone] CBC Auto Diff 12/13/2017 [facility] White Blood 7.0 10^3/uL N 3.5-10. [address] Count 8 [place] [address] [phone] Red Blood Count 4.90 10^6/uL N 4.00-5.40 Hemoglobin 14.2 g/dL N 14.0-18.0 Hematocrit 45 % N 42-52 Mean Corpuscular Volume 91 fL N 80-94 Mean Corpuscular Hemoglobin 29 pg N 27-31 Mean Corpuscular HGB Conc 32 g/dL N 31-36 Red Cell Distribution Width 16 % High 10.5-15 Platelet Count 177 10^3/uL N 150-450 Mean Platelet Volume 8.6 um3 N 7.4-10.4 Abs Neutrophils 5.3 10^3/uL N 1.5-7.7 Abs Lymphocytes 0.6 10^3/uL Low 1.0-4.8 Abs Monocytes 0.8 10^3/uL N 0-0.8 Abs Eosinophils 0.3 10^3/uL N 0-0.6 Abs Basophils 0 10^3/uL N 0-0.2 Abs Nucleated RBC 0 10^3/uL Granulocyte % 75.8 % N 38-83 Lymphocyte % 8.1 % Low 25-47 Monocyte % 11.2 % High 0-7 Eosinophil % 4.3 % N 0-6 Basophil % 0.6 % N 0-2 Nucleated Red Blood Cells % 0.1 Iron & Iron Binding 12/13/2017 [facility] Iron 73 g/dL N 50- 212 [address] [place] [address] [phone] Unsaturated Iron Binding 276 g/dL Total Iron Binding Capacity 349 g/dL N 250-450 Transferrin 249 mg/dL N 203-362 % Iron Saturation 21 % N 15-55 Laboratory test 06/20/2017 [facility] Occult Blood - neg x 3 finding Stool Retic Count 05/30/2017 [facility] Retic Count 1.0 % N 0.5-1.5 [address] [place] [address] [phone] Corrected Retic Count 0.9 % N 0.5-1.5 Maturation Factor Retic 1.5 Retic Index 0.60 Mean Retic Volume 119.4 Immature Retic Fraction 0.50 RBC Retic Count 4.74 10^6/uL N 4.6-6.2 Hematocrit for Retic CNT 39 % Low 42-52 Iron & Iron Binding 05/30/2017 [facility] Iron 48 g/dL Low 50-212 [address] [place] [address] [phone] Unsaturated Iron Binding 386 g/dL Total Iron Binding Capacity 434 g/dL N 250-450 % Iron Saturation 11 % Low 15-55 Laboratory test 05/30/2017 [facility] Vitamin B12 447 pg/mL N 180-914 [address] [place] [address] [phone] Erythropoietin 34.4 mIU/mL Abnormal 2.6 - 18.5 8 Basic Metabolic Panel 04/24/2017 [facility] Sodium 137 mmol/L N 133-145 [address] [place] [address] [phone] Potassium 4.8 mmol/L N 3.5-5.0 Chloride 106 mmol/L N 101-111 Co2 Carbon Dioxide 26 mmol/L N 22-32 Anion Gap 5 mmol/L N 2-11 Glucose 88 mg/dL N 70-100 Blood Urea Nitrogen 31 mg/dL High 6-24 Creatinine 1.59 mg/dL High 0.67-1.17 BUN/Creatinine Ratio 19.5 N 8-20 Calcium 9.0 mg/dL N 8.6-10.3 Egfr Non- 42.0 N >60 Egfr 54.0 N >60 9 Lipid Profile 04/24/2017 [facility] Triglycerides 112 mg/dL N 10 (Trig/Chol/HDL) [address] [place] [address] [phone] Cholesterol 146 mg/dL N 11 HDL Cholesterol 35.6 mg/dL N 12 LDL Cholesterol 88 mg/dL N 13 CBC Auto Diff 04/24/2017 [facility] White Blood 4.9 10^3/uL N 3.5-10.[address] [place] [address] [phone] Red Blood Count 4.69 10^6/uL N 4.0-5.4 Hemoglobin 12.3 g/dL Low 14.0-18.0 Hematocrit 39 % Low 42-52 Mean Corpuscular Volume 83 fL N 80-94 Mean Corpuscular Hemoglobin 26 pg Low 27-31 Mean Corpuscular HGB Conc 32 g/dL N 31-36 Red Cell Distribution Width 17 % High 10.5-15 Platelet Count 223 10^3/uL N 150-450 Mean Platelet Volume 8 um3 N 7.4-10.4 Abs Neutrophils 2.7 10^3/uL N 1.5-7.7 Abs Lymphocytes 0.6 10^3/uL Low 1.0-4.8 Abs Monocytes 0.8 10^3/uL N 0-0.8 Abs Eosinophils 0.7 10^3/uL High 0-0.6 Abs Basophils 0.1 10^3/uL N 0-0.2 Abs Nucleated RBC 0 10^3/uL N Granulocyte % 54.7 % N 38-83 Lymphocyte % 12.7 % Low 25-47 Monocyte % 17.1 % High 1-9 Eosinophil % 13.8 % High 0-6 Basophil % 1.7 % N 0-2 Nucleated Red Blood Cells % 0 N Laboratory test 04/24/2017 [facility] Creatine 58 U/L N 10- 223 [address] Kinase(CK) [place] [address] [phone] Lipid Profile 06/02/2016 [facility] Triglycerides 92 mg/dL N 15 (Trig/Chol/HDL) [address] [place] [address] [phone] Cholesterol 228 mg/dL N 16 HDL Cholesterol 51.0 mg/dL N 17 LDL Cholesterol 159 mg/dL N 18 Laboratory test 06/02/2016 [facility] Creatine 31 U/L N 10- [address] Kinase(CK) [place] [address] [phone] Comp Metabolic 06/02/2016 [facility] Sodium 139 N 133-[address] mmol/[place] [address] [phone] Potassium 5.3 mmol/L High 3.5-5.0 Chloride 107 mmol/L N 101-111 Co2 Carbon Dioxide 28 mmol/L N 22-32 Anion Gap 4 mmol/L N 2-11 Glucose 92 mg/dL N 70-100 Blood Urea Nitrogen 32 mg/dL High 6-24 Creatinine 1.64 mg/dL High 0.67-1.17 BUN/Creatinine Ratio 19.5 N 8-20 Calcium 9.1 mg/dL N 8.6-10.3 Total Protein 6.4 g/dL N 6.4-8.9 Albumin 3.4 g/dL N 3.2-5.2 Globulin 3.0 g/dL N 2-4 Albumin/Globulin Ratio 1.1 N 1-3 Total Bilirubin 0.50 mg/dL N 0.2-1.0 Alkaline Phosphatase 57 U/L N 34-104 Alt 26 U/L N 7-52 Ast 25 U/L N 13-39 Egfr Non- 40.6 N >60 Egfr 52.2 N >60 19 Laboratory test 05/19/2016 [facility] Potassium 5.1 mmol/L High 3.5-5.0 [address] [place] [address] [phone] Basic Metabolic 05/17/2016 [facility] Sodium 133 mmol/L N 133- [address] [place] [address] [phone] Potassium 5.8 mmol/L High 3.5-5.0 Chloride 101 mmol/L N 101-111 Co2 Carbon Dioxide 26 mmol/L N 22-32 Anion Gap 6 mmol/L N 2-11 Glucose 70 mg/dL N 70-100 Blood Urea Nitrogen 21 mg/dL N 6-24 Creatinine 1.12 mg/dL N 0.67-1.17 BUN/Creatinine Ratio 18.8 N 8-20 Calcium 8.5 mg/dL Low 8.6-10.3 Egfr Non- 63.1 N >60 Egfr 81.1 N >60 21 Laboratory test 05/17/2016 [facility] Lyme Disease Negative N Negative [address] [place] [address] [phone] Basic Metabolic 12/08/2015 [facility] Sodium 138 mmol/L N 133- 145 Panel [address] [place] [address] [phone] Potassium 5.1 mmol/L High 3.5-5.0 Chloride 104 mmol/L N 101-111 Co2 Carbon Dioxide 29 mmol/L N 22-32 Anion Gap 5 mmol/L N 2-11 Glucose 83 mg/dL N 70-100 Blood Urea Nitrogen 17 mg/dL N 6-24 Creatinine 1.04 mg/dL N 0.67-1.17 BUN/Creatinine Ratio 16.3 N 8-20 Calcium 9.2 mg/dL N 8.6-10.3 Egfr Non- 68.7 N >60 Egfr 88.4 N >60 23 Laboratory test 12/08/2015 [facility] Magnesium 2.1 mg/dL N 1.9-2.7 finding [address] [place] [address] [phone] Laboratory test 10/14/2015 [facility] Surgical SEE RESULT [address] [place] [address] [phone] Lipid Profile 06/11/2015 [facility] Triglycerides 133 mg/dL N 25 (Trig/Chol/HDL) [address] [place] [address] [phone] Cholesterol 185 mg/dL N 26 HDL Cholesterol 39.0 mg/dL N 27 LDL Cholesterol 119 mg/dL N 28 Comp Metabolic Panel 06/11/2015 [facility] Sodium 140 mmol/L N 133-145 [address] [place] [address] [phone] Potassium 4.5 mmol/L N 3.5-5.0 Chloride 106 mmol/L N 101-111 Co2 Carbon Dioxide 28 mmol/L N 22-32 Anion Gap 6 mmol/L N 2-11 Glucose 93 mg/dL N 70-100 Blood Urea Nitrogen 17 mg/dL N 6-24 Creatinine 1.15 mg/dL N 0.67-1.17 BUN/Creatinine Ratio 14.8 N 8-20 Calcium 8.8 mg/dL N 8.6-10.3 Total Protein 6.5 g/dL N 6.4-8.9 Albumin 4.0 g/dL N 3.2-5.2 Globulin 2.5 g/dL N 2-4 Albumin/Globulin Ratio 1.6 N 1-3 Total Bilirubin 0.70 mg/dL N 0.2-1.0 Alkaline Phosphatase 77 U/L N 34-104 Alt 11 U/L N 7-52 Ast 20 U/L N 13-39 Egfr Non- 61.3 N >60 Egfr 78.9 N >60 29 Laboratory test 02/26/2015 Uric Acid 5.4 mg/dL N 4.4-7.6 finding Lipid Profile 06/03/2014 [facility] Triglycerides 99 mg/dL N 30, 31 (Trig/Chol/HDL) [address] [place] [address] [phone] Cholesterol 186 mg/dL N 32 HDL Cholesterol 41.5 mg/dL N 33 LDL Cholesterol 125 mg/dL N 34 Laboratory test 04/23/2014 [facility] B Type 446 pg/mL N [address] [place] [address] Peptide [phone] Basic Metabolic 04/23/2014 [facility] Sodium 139 mmol/L N 133- [address] [place] [address] [phone] Potassium 4.5 mmol/L N 3.7-5.6 Chloride 107 mmol/L N 101-111 Co2 Carbon Dioxide 27 mmol/L N 22-32 Anion Gap 5 mmol/L N 2-11 Glucose 71 mg/dL N 70-100 Blood Urea Nitrogen 18 mg/dL N 6-24 Creatinine 1.13 mg/dL N 0.67-1.17 BUN/Creatinine Ratio 15.9 N 8-20 Calcium 9.0 mg/dL N 8.6-10.3 Egfr Non- 62.8 N >60 Egfr 80.7 N >60 36 Laboratory test 04/13/2014 [facility] Troponin I 0.01 ng/mL N <0.03 [address] [place] [address] [phone] Laboratory test 04/13/2014 [facility] B Type 439 pg/mL N [address] [place] [address] Peptide [phone] Comp Metabolic 04/13/2014 [facility] Sodium 136 mmol/L N 133- [address] [place] [address] [phone] Potassium 4.1 mmol/L N 3.7-5.6 Chloride 106 mmol/L N 101-111 Co2 Carbon Dioxide 22 mmol/L N 22-32 Anion Gap 8 mmol/L N 2-11 Glucose 101 mg/dL High 70-100 Blood Urea Nitrogen 18 mg/dL N 6-24 Creatinine 1.06 mg/dL N 0.67-1.17 BUN/Creatinine Ratio 17.0 N 8-20 Calcium 9.3 mg/dL N 8.6-10.3 Total Protein 7.3 g/dL N 6.4-8.9 Albumin 3.9 g/dL N 3.2-5.2 Globulin 3.4 g/dL N 2-4 Albumin/Globulin Ratio 1.1 N 1-3 Total Bilirubin 0.80 mg/dL N 0.2-1.0 Alkaline Phosphatase 70 U/L N 34-104 Alt 11 U/L N 7-52 Ast 21 U/L N 13-39 Egfr Non- 67.6 N >60 Egfr 86.9 N >60 39 Laboratory test 04/13/2014 [facility] Magnesium 2.0 mg/dL N 1.9-2.7 [address] [place] [address] [phone] Creatine Kinase 55 U/L N 10-223 CKMB 1.9 ng/mL N 0.6-6.3 Troponin I 0.01 ng/mL N <0.03 41 CBC Auto 04/13/2014 [facility] White Blood 12.3 10^3/uL High 4.8-10.[address] [place] [address] [phone] Red Blood Count 5.04 10^6/uL N 4.0-5.4 Hemoglobin 14.8 g/dL N 14.0-18.0 Hematocrit 45 % N 42-52 Mean Corpuscular Volume 89 fL N 80-94 Mean Corpuscular Hemoglobin 29 pg N 27-31 Mean Corpuscular HGB Conc 33 g/dL N 31-36 Red Cell Distribution Width 16 % High 10.5-15 Platelet Count 210 10^3/uL N 150-450 Mean Platelet Volume 8 um3 N 7.4-10.4 Abs Neutrophils 10.3 10^3/uL High 1.5-7.7 Abs Lymphocytes 0.4 10^3/uL Low 1.0-4.8 Abs Monocytes 1.4 10^3/uL High 0-0.8 Abs Eosinophils 0.2 10^3/uL N 0-0.6 Abs Basophils 0.1 10^3/uL N 0-0.2 Abs Nucleated RBC 0 10^3/uL N Granulocyte % 83.7 % High 38-83 Lymphocyte % 2.9 % Low 25-47 Monocyte % 10.9 % High 1-9 Eosinophil % 1.8 % N 0-6 Basophil % 0.7 % N 0-2 Nucleated Red Blood Cells % 0 N Inr/Protime 04/13/2014 [facility] Inr 1.24 High 0.85-1.06 [address] [place] [address] [phone] Basic Metabolic 01/07/2014 [facility] Sodium 138 mmol/L N 133- 145 Panel [address] [place] [address] [phone] Potassium 4.5 mmol/L N 3.7-5.6 Chloride 106 mmol/L N 101-111 Co2 Carbon Dioxide 26 mmol/L N 22-32 Anion Gap 6 mmol/L N 2-11 Glucose 87 mg/dL N 70-100 Blood Urea Nitrogen 22 mg/dL N 6-24 Creatinine 1.01 mg/dL N 0.67-1.17 BUN/Creatinine Ratio 21.8 High 8-20 Calcium 9.2 mg/dL N 8.6-10.3 Egfr Non- 71.4 N >60 Egfr 91.9 N >60 42 Laboratory test 05/23/2013 [facility] PSA Screening 0.248 ng/mL 0-4.000 43 finding [address] [place], [place] [id number] [phone] Comp Metabolic 05/23/2013 [facility] Sodium 139 mmol/L 133- [address] [place], [place] [address] [phone] Potassium 5.2 mmol/L High 3.5-5.0 Chloride 105 mmol/L 101-111 Co2 Carbon Dioxide 27.0 mmol/L 22-32 Anion Gap 7.0 mmol/L 2-11 Glucose 92 mg/dL 70-100 Blood Urea Nitrogen 14 mg/dL 6-24 Creatinine 1.00 mg/dL 0.50-1.40 BUN/Creatinine Ratio 14.0 8-20 Calcium 9.1 mg/dL 8.1-9.9 Total Protein 6.2 g/dL 6.2-8.1 Albumin 3.9 g/dL 3.2-5.2 Globulin 2.3 g/dL 2-4 Albumin/Globulin Ratio 1.7 1-3 Total Bilirubin 0.9 mg/dL 0.4-1.5 Alkaline Phosphatase 72 U/L 30-110 Alt 14 U/L 14-54 Ast 22 U/L 12-42 Egfr Non- 72.5 >60 Egfr 93.2 >60 44 Lipid Profile 05/23/2013 [facility] Triglycerides 133 mg/dL 40-200 (Trig/Chol/HDL) [address] [place] [address] [phone] Cholesterol 179 mg/dL Less than 200 HDL Cholesterol 43 mg/dL 40-60 45 Cholesterol/HDL Ratio 4.2 Average 1-4.44 LDL Cholesterol 109.4 High Less Than 100 46 Surgical 11/13/2012 [facility] S RUN DATE: [address] 11/15/ <[place] [address] NOTE> [phone] Lipid Panel - 02/07/2012 [facility] CPK (Creatine 83 U/L 0- [address] Kinase) [place] [address] [phone] Comp Metabolic 02/07/2012 [facility] Sodium 137 mmol/L 135- [address] [place] [address] [phone] Potassium 4.7 mmol/L 3.5-5.0 Chloride 106 mmol/L 101-111 Co2 (Carbon Dioxide) 27.0 mmol/L 22-32 Anion Gap 4.0 mmol/L 2-11 48 Glucose 97 mg/dL 70-100 BUN 20 mg/dL 6-24 Creatinine 1.0 mg/dL 0.50-1.40 One Over Creatinine 1.00 BUN/Creatinine Ratio 20.0 8-20 Calcium 8.7 mg/dL 8.1-9.9 Total Protein 6.9 GM/DL 6.2-8.1 Albumin 4.0 GM/DL 3.2-5.2 Globulin 2.9 GM/DL 2-4 Albumin/Globulin Ratio 1.4 1-3 Bilirubin Total 1.0 mg/dL 0.4-1.5 49 Alkaline Phosphatase 87 U/L 39-117 Alt (SGPT) 20 U/L 17-63 Ast (Sgot) 35 U/L 12-42 eGFR Non- 72.6 > 60 eGFR 93.4 > 60 50 Lipid Profile 02/07/2012 [facility] Triglyceride 134 mg/dL 40 -200 (Trig/Chol/HDL) [address] [place] [address] [phone] Cholesterol 193 mg/dL Less Than 200 51 High Density Lipoprotein 35 mg/dL Low 40-60 52 Cholesterol/HDL Ratio 5.51 AVERAGE High 1-4.97 Low Density Lipoprotein 131 mg/dL High Less Than 100 53 Lipid Panel - 05/13/2011 [facility] CPK (Creatine 74 U/L 0- [address] Kinase) [place] [address] [phone] CMP Panel 05/13/2011 [facility] Sodium 139 mmol/L 135-[address] [place] [address] [phone] Potassium 4.5 mmol/L 3.5-5.0 Chloride 107 mmol/L 101-111 Co2 (Carbon Dioxide) 27.0 mmol/L 22-32 Anion Gap 5.0 mmol/L 2-11 54 Glucose 100 mg/dL 70-100 BUN 12 mg/dL 6-24 Creatinine 1.0 mg/dL 0.50-1.40 One Over Creatinine 1.00 BUN/Creatinine Ratio 12.0 8-20 Calcium 9.3 mg/dL 8.1-9.9 Total Protein 6.0 GM/DL Low 6.2-8.1 Albumin 3.8 GM/DL 3.2-5.2 Globulin 2.2 GM/DL 2-4 Albumin/Globulin Ratio 1.7 1-3 Bilirubin Total 0.9 mg/dL 0.4-1.5 55 Alkaline Phosphatase 76 U/L 39-117 Alt (SGPT) 19 U/L 17-63 Ast (Sgot) 23 U/L 12-42 eGFR Non- 72.8 > 60 eGFR 93.7 > 60 56 Lipid Panel 05/13/2011 [facility] Triglyceride 102 mg/dL 40- [address] [place] [address] [phone] Cholesterol 182 mg/dL Less Than 200 57 High Density Lipoprotein 41 mg/dL 40-60 58 Cholesterol/HDL Ratio 4.44 AVERAGE 1-4.97 Low Density Lipoprotein 121 mg/dL High Less Than 100 59 Comp Metabolic Panel 02/10/2011 [facility] Sodium 140 mmol/L 135-[address] [place] [address] [phone] Potassium 4.8 mmol/L 3.5-5.0 Chloride 108 mmol/L 101-111 Co2 (Carbon Dioxide) 28.0 mmol/L 22-32 Anion Gap 4.0 mmol/L 2-11 60 Glucose 81 mg/dL 70-100 BUN 12 mg/dL 6-24 Creatinine 1.10 mg/dL 0.50-1.40 One Over Creatinine 0.90 BUN/Creatinine Ratio 10.9 8-20 Calcium 9.0 mg/dL 8.1-9.9 Total Protein 6.6 GM/DL 6.2-8.1 Albumin 3.7 GM/DL 3.2-5.2 Globulin 2.9 GM/DL 2-4 Albumin/Globulin Ratio 1.3 1-3 Bilirubin Total 0.8 mg/dL 0.4-1.5 61 Alkaline Phosphatase 63 U/L 39-117 Alt (SGPT) 18 U/L 17-63 Ast (Sgot) 23 U/L 12-42 eGFR Non- 65.3 > 60 eGFR 83.9 > 60 62 Laboratory test 02/10/2011 [facility] C Reactive 0.6 mg/dL High Less Than finding [address] Protein 0.5 [place] [address] [phone] CBC Auto Diff 02/10/2011 [facility] White Blood 5.4 CUMM 4.8- 10.[address] [place] [address] [phone] Red Cell Count 4.61 CUMM 4.6-6.2 Hemoglobin 14.4 g/dL 14.0-18.0 Hematocrit 42 % 42-52 Mean Corpuscular Volume 90 um3 80-94 Mean Corpuscular Hemoglob 31 pg 27-31 Mean Corpuscular HGB Cone 35 g/dL 32-36 Redcell Distribution WDTH 15 % 10.5-15 Platelet Count 164 CUMM 150-450 Mean Platelet Volume 8.8 um3 7.4-10.4 Gran % 65.3 % 38-83 Lymph % 15.6 % Low 25-47 Mononuclear % 13.4 % High 1-9 Eosinophil % 5.2 % 0-6 Basophil % 0.5 % 0-2 Abs Lymphs 0.8 Low 1.0-4.8 Abs Mononuclear 0.7 0-0.8 Absolute Neutrophil Count 3.6 1.5-7.7 Abs Eosinophils 0.3 0-0.6 Abs Basophils 0 0-0.2 63 Laboratory test 02/10/2011 [facility] Erythrocyte Sed 23 MM/HR 0-[address] [place] [address] [phone] Laboratory test 12/15/2010 [facility] Cyclic <15.6 U () [address] [place] [address] Igg [phone] Erythrocyte Sed Rate 31 MM/HR 0-40 Laboratory test 12/07/2010 [facility] LDL Direct 108 mg/dL High Less Than [address] [place] [address] [phone] Cholesterol 174 mg/dL Less Than 200 66 Comp Metabolic Panel 12/07/2010 [facility] Sodium 141 mmol/L 135-[address] [place], [place] [id number] [phone] Potassium 4.0 mmol/L 3.5-5.0 Chloride 108 mmol/L 101-111 Co2 (Carbon Dioxide) 24.0 mmol/L 22-32 Anion Gap 9.0 mmol/L 2-11 67 Glucose 95 mg/dL 70-100 BUN 17 mg/dL 6-24 Creatinine 1.30 mg/dL 0.50-1.40 One Over Creatinine 0.70 BUN/Creatinine Ratio 13.1 8-20 Calcium 9.2 mg/dL 8.1-9.9 Total Protein 6.5 GM/DL 6.2-8.1 Albumin 4.0 GM/DL 3.2-5.2 Globulin 2.5 GM/DL 2-4 Albumin/Globulin Ratio 1.6 1-3 Bilirubin Total 0.9 mg/dL 0.4-1.5 68 Alkaline Phosphatase 66 U/L 39-117 Alt (SGPT) 18 U/L 17-63 Ast (Sgot) 26 U/L 12-42 eGFR Non- 53.8 > 60 eGFR 69.2 > 60 69 Laboratory test 12/07/2010 [facility] CPK (Creatine 85 U/L 0- [address] Kinase) [place] [address] [phone] Rheumatoid Factor 28.6 IU/mL High Less Than 20 TSH 1.38 MIU/ML 0.34-5.60 HDL Cholesterol 12/07/2010 [facility] High Density 44 mg/dL 40-[address] [place] [address] [phone] Cholesterol/HDL Ratio 3.95 AVERAGE 1-4.97 Laboratory test 12/01/2010 [facility] Lyme Disease Negative Negative [address] [place] [address] [phone] Erythrocyte Sed Rate 11 MM/HR 0-40 C Reactive Protein 0.5 mg/dL Less Than 0.5 Protime W/ Inr 10/12/2010 [facility] Prothrombin Time 34.1 Inr 2.8 Protime W/ Inr 09/23/2010 Unknown Lab Prothrombin Time 26.6 Inr 2.59 Protime W/ Inr 06/08/2010 [facility] Prothrombin Time 35.2 Inr 2.9 Lipid Panel - 06/02/2010 [facility] CPK (Creatine 89 U/L 0- [address] Kinase) [place] [address] [phone] Comp Metabolic 06/02/2010 [facility] Sodium 140 135-[address] mmol/[place] [address] [phone] Potassium 5.1 mmol/L High 3.5-5.0 Chloride 105 mmol/L 101-111 Co2 (Carbon Dioxide) 28.0 mmol/L 22-32 Anion Gap 7.0 mmol/L 2-11 72 Glucose 92 mg/dL 70-100 73 BUN 14 mg/dL 6-24 Creatinine 1.10 mg/dL 0.50-1.40 One Over Creatinine 0.90 BUN/Creatinine Ratio 12.7 8-20 Calcium 9.2 mg/dL 8.1-9.9 Total Protein 6.7 GM/DL 6.2-8.1 Albumin 3.8 GM/DL 3.2-5.2 Globulin 2.9 GM/DL 2-4 Albumin/Globulin Ratio 1.3 1-3 Bilirubin Total 1.1 mg/dL 0.4-1.5 74 Alkaline Phosphatase 76 U/L 39-117 Alt (SGPT) 19 U/L 17-63 Ast (Sgot) 23 U/L 12-42 eGFR Non- 69.5 > 60 eGFR 84.2 > 60 75 Lipid Profile 06/02/2010 [facility] Triglyceride 178 mg/dL 40 -200 (Trig/Chol/HDL) [address] [place] [address] [phone] Cholesterol 207 mg/dL High Less Than 200 76 High Density Lipoprotein 39 mg/dL Low 40-60 77 Cholesterol/HDL Ratio 5.31 AVERAGE High 1-4.97 Low Density Lipoprotein 132 mg/dL High Less Than 100 78 Protime W/ Inr 05/24/2010 [facility] House Prothrombin Time 21.6 Inr 1.8 Protime W/ Inr 04/26/2010 [facility] House Prothrombin Time 31.3 Inr 2.6 Protime W/ Inr 03/29/2010 [facility] House Prothrombin Time 26.7 Inr 2.2 Protime W/ Inr 02/23/2010 [facility] Prothrombin Time 23.9 Inr 2.0 Protime W/ Inr 01/19/2010 [facility] Prothrombin Time 26.1 Inr 2.2 Laboratory test 11/26/2009 [facility] TSH 1.77 MIU/ML 0.34- 5.[address] [place] [address] [phone] CBC With 11/26/2009 [facility] White Blood 5.5 CUMM 4.8-10.8 Electronic Diff [address] [place] [address] [phone] Red Cell Count 5.09 CUMM 4.6-6.2 Hemoglobin 15.7 g/dL 14.0-18.0 Hematocrit 47 % 42-52 Mean Corpuscular Volume 91 um3 80-94 Mean Corpuscular Hemoglob 31 pg 27-31 Mean Corpuscular HGB Cone 34 g/dL 32-36 Redcell Distribution WDTH 15 % 10.5-15 Platelet Count 185 CUMM 150-450 Mean Platelet Volume 8.2 um3 7.4-10.4 Gran % 66.9 % 38-83 Lymph % 16.5 % Low 25-47 Mononuclear % 13.5 % High 1-9 Eosinophil % 2.6 % 0-6 Basophil % 0.5 % 0-2 Abs Lymphs 0.9 Low 1.0-4.8 Abs Mononuclear 0.7 0-0.8 Absolute Neutrophil Count 3.7 1.5-7.7 Abs Eosinophils 0.1 0-0.6 Abs Basophils 0 0-0.2 79 Lipid Profile 11/26/2009 [facility] Triglyceride 182 mg/dL 40 -200 (Trig/Chol/HDL) [address] [place] [address] [phone] Cholesterol 227 mg/dL High Less Than 200 80 High Density Lipoprotein 38 mg/dL Low 40-60 81 Cholesterol/HDL Ratio 5.97 AVERAGE High 1-4.97 Low Density Lipoprotein 153 mg/dL High Less Than 100 82 Comp Metabolic Panel 11/26/2009 [facility] Sodium 139 mmol/L 135-145 [address] [place] [address] [phone] Potassium 4.6 mmol/L 3.5-5.0 Chloride 106 mmol/L 101-111 Co2 (Carbon Dioxide) 27.0 mmol/L 22-32 Anion Gap 6.0 mmol/L 2-11 83 Glucose 105 mg/dL High 70-100 84 BUN 13 mg/dL 6-24 Creatinine 1.00 mg/dL 0.50-1.40 One Over Creatinine 1.00 BUN/Creatinine Ratio 13.0 8-20 Calcium 9.2 mg/dL 8.1-9.9 85 Total Protein 6.6 GM/DL 6.2-8.1 Albumin 4.0 GM/DL 3.2-5.2 Globulin 2.6 GM/DL 2-4 Albumin/Globulin Ratio 1.5 1-3 Bilirubin Total 1.0 mg/dL 0.4-1.5 86 Alkaline Phosphatase 65 U/L 39-117 Alt (SGPT) 19 U/L 17-63 Ast (Sgot) 27 U/L 12-42 eGFR Non- 77.6 > 60 eGFR 93.9 > 60 87 Lipid Panel - 11/26/2009 [facility] CPK (Creatine 100 U/L 0- [address] Kinase) [place] [address] [phone] Protime W/ Inr 11/23/2009 [facility] Prothrombin Time 27.5 Inr 2.3 Urinalysis 11/23/2009 [facility] Ua Color YELLOW Yellow [address] [place] [address] [phone] Appearance-Urine CLEAR Clear Specific [place]-Ur 1.025 1.010-1.030 Esterase-Urine NEGATIVE Negative Nitrite NEGATIVE Negative [id number] NEGATIVE Negative Protein-Urine NEGATIVE Negative PH-Urine 5.0 5-9 Blood-Urine NEGATIVE Negative Ketones-Urine NEGATIVE Negative Bilirubin-Ur NEGATIVE Negative Glucose-Urine NEGATIVE Negative Urine Culture & 11/23/2009 [facility] Urine Culture NG [address] [place] [address] [phone] Protime W/ Inr 10/28/2009 [facility] Prothrombin Time 36.4 Inr 3.0 Protime W/ Inr 05/22/2009 [facility] Prothrombin Time 35.3 Inr 2.9 Comp Metabolic Panel 05/12/2009 [facility] Sodium 138 mmol/L 135-145 [address] [place] [address] [phone] Potassium 4.6 mmol/L 3.5-5.0 Chloride 106 mmol/L 101-111 Co2 (Carbon Dioxide) 28.0 mmol/L 22-32 Anion Gap 4.0 mmol/L 2-11 89 Glucose 92 mg/dL 70-100 90 BUN 12 mg/dL 6-24 Creatinine 1.00 mg/dL 0.50-1.40 One Over Creatinine 1.00 BUN/Creatinine Ratio 12.0 8-20 Calcium 8.7 mg/dL 8.1-9.9 91 Total Protein 6.4 GM/DL 6.2-8.1 Albumin 3.6 GM/DL 3.2-5.2 Globulin 2.8 GM/DL 2-4 Albumin/Globulin Ratio 1.3 1-3 Bilirubin Total 1.2 mg/dL 0.4-1.5 92 Alkaline Phosphatase 69 U/L 39-117 Alt (SGPT) 18 U/L 17-63 Ast (Sgot) 20 U/L 12-42 eGFR Non- 77.8 > 60 eGFR 94.2 > 60 93 Lipid Profile 05/12/2009 [facility] Triglyceride 119 mg/dL 40 -200 (Trig/Chol/HDL) [address] [place] [address] [phone] Cholesterol 209 mg/dL High Less Than 200 94 High Density Lipoprotein 41 mg/dL 40-60 95 Cholesterol/HDL Ratio 5.10 AVERAGE High 1-4.97 Low Density Lipoprotein 144 mg/dL High Less Than 100 96 Laboratory test 05/12/2009 [facility] CPK (Creatine 87 U/L 0- [address] Kinase) [place] [address] [phone] PSA Screening 0.41 NG/ML 0-4 97 Protime W/ Inr 05/11/2009 [facility] Prothrombin Time 21.2 Inr 1.8 Protime W/ Inr 04/22/2009 [facility] House Prothrombin Time 42.5 Inr 3.5 Urinalysis 04/08/2009 [facility] Ua Color YELLOW [address] [place] [address] [phone] Appearance-Urine CLEAR Specific [place]-Ur 1.011 1.010-1.030 Esterase-Urine NEGATIVE Negative Nitrite NEGATIVE Negative Axmopxecsver-Rk-LBU NEGATIVE Negative Protein-Urine NEGATIVE Negative PH-Urine 7.5 5-9 Blood-Urine NEGATIVE Negative Ketones-Urine NEGATIVE Negative Bilirubin-Ur NEGATIVE Negative Glucose-Urine NEGATIVE Negative Protime W/ Inr 03/23/2009 [facility] Prothrombin Time 28.0 Inr 2.3 Protime W/ Inr 02/17/2009 [facility] House Prothrombin Time 33.0 Inr 2.7 Laboratory test finding 02/04/2009 [facility] Ast (Sgot) 24 U/L 12-[address] [place] [address] [phone] CPK (Creatine Kinase) 109 U/L 0-200 Protime W/ Inr 12/15/2008 [facility] House Prothrombin Time 24.6 Inr 2.1 Liver Function 10/22/2008 [facility] Total Protein 6.6 GM/DL 6.2-8.[address] [place] [address] [phone] Albumin 3.7 GM/DL 3.2-5.2 Globulin 2.9 GM/DL 2-4 Albumin/Globulin Ratio 1.3 1-3 Bilirubin Total 1.0 mg/dL 0.4-1.5 Bilirubin Direct 0.2 mg/dL 0.1-0.5 Indirect Bilirubin 0.8 mg/dL High 0.1-0.75 Alkaline Phosphatase 69 U/L 39-117 Alt (SGPT) 18 U/L 17-63 Ast (Sgot) 23 U/L 12-42 Lipid Profile 10/22/2008 [facility] Triglyceride 130 mg/dL 40 -200 (Trig/Chol/HDL) [address] [place] [address] [phone] Cholesterol 180 mg/dL Less Than 200 98 High Density Lipoprotein 40 mg/dL 40-60 99 Cholesterol/HDL Ratio 4.50 AVERAGE 1-4.97 Low Density Lipoprotein 114 mg/dL High Less Than 100 100 CBC With 10/22/2008 [facility] White Blood 6.6 CUMM 4.8-10.8 Electronic Diff [address] [place] [address] [phone] Red Cell Count 4.87 CUMM 4.6-6.2 Hemoglobin 14.6 g/dL 14.0-18.0 Hematocrit 43 % 42-52 Mean Corpuscular Volume 89 um3 80-94 Mean Corpuscular Hemoglob 30 pg 27-31 Mean Corpuscular HGB Cone 34 g/dL 32-36 Redcell Distribution WDTH 15 % 10.5-15 Platelet Count 187 CUMM 150-450 Mean Platelet Volume 8.3 um3 7.4-10.4 Gran % 68.4 % 38-83 Lymph % 14.0 % Low 25-47 Mononuclear % 14.0 % High 1-9 Eosinophil % 3.4 % 0-6 Basophil % 0.2 % 0-2 Abs Lymphs 0.9 Low 1.0-4.8 Abs Mononuclear 0.9 High 0-0.8 Absolute Neutrophil Count 4.5 1.5-7.7 Abs Eosinophils 0.2 0-0.6 Abs Basophils 0 0-0.2 101 Basic Metabolic Panel 10/22/2008 [facility] Sodium 138 mmol/L 135-145 [address] [place] [address] [phone] Potassium 4.8 mmol/L 3.5-5.0 Chloride 106 mmol/L 101-111 Co2 (Carbon Dioxide) 27.0 mmol/L 22-32 Anion Gap 5.0 mmol/L 2-11 102 Glucose 97 mg/dL 70-100 103 BUN 13 mg/dL 6-24 Creatinine 1.20 mg/dL 0.50-1.40 One Over Creatinine 0.80 BUN/Creatinine Ratio 10.8 8-20 Calcium 9.0 mg/dL 8.1-9.9 104 Protime W/ Inr 10/15/2008 [facility] House Prothrombin Time 39.8 Inr 3.3 Protime Stat 06/03/2008 [facility] House Prothrombin Time 28.2 Laboratory test 06/03/2008 [facility] House Inr 2.3 finding Protime Stat 04/29/2008 [facility] House Prothrombin Time 26.9 Laboratory test 04/29/2008 [facility] House Inr 2.2 finding Protime Stat 04/14/2008 [facility] House Prothrombin Time 38.5 Laboratory test 04/14/2008 [facility] House Inr 3.0 finding Protime Stat 03/13/2008 Prothrombin Time 24.9 Laboratory test 03/13/2008 Inr 2.1 finding Protime Stat 02/13/2008 [facility] House Prothrombin Time 20.1 Laboratory test 02/13/2008 [facility] House Inr 1.7 finding Lipid Profile 02/11/2008 [facility] Triglyceride 116 mg/dL 40 -200 105 (Trig/Chol/HDL) [address] [place] [address] [phone] Cholesterol 208 mg/dL High Less Than 200 106 High Density Lipoprotein 42 mg/dL 40-60 107 Cholesterol/HDL Ratio 4.95 AVERAGE 1-4.97 Low Density Lipoprotein 143 mg/dL High Less Than 100 108 Comp Metabolic Panel 02/11/2008 [facility] Sodium 138 mmol/L 135-145 [address] [place] [address] [phone] Potassium 4.5 mmol/L 3.5-5.0 Chloride 110 mmol/L 101-111 Co2 (Carbon Dioxide) 28.0 mmol/L 22-32 Anion Gap 0 mmol/L Low 2-11 109 Glucose 100 mg/dL 70-105 BUN 14 mg/dL 6-24 Creatinine 1.1 mg/dL 0.5-1.4 One Over Creatinine 0.90 BUN/Creatinine Ratio 12.7 8-20 Calcium 8.7 mg/dL 8.1-9.9 110 Total Protein 6.7 GM/DL 6.2-8.1 Albumin 3.7 GM/DL 3.2-5.2 Globulin 3.0 GM/DL 2-4 Albumin/Globulin Ratio 1.2 1-3 Bilirubin Total 0.7 mg/dL 0.4-1.5 Alkaline Phosphatase 75 U/L 39-117 Alt (SGPT) 24 U/L 17-63 Ast (Sgot) 27 U/L 12-42 Lipid Panel - [facility] 02/11/2008 [facility] CPK (Creatine 89 U/L 0-[address] Kinase) [place] [address] [phone] Protime Stat 01/16/2008 [facility] Prothrombin Time 24.3 Laboratory test 01/16/2008 [facility] House Inr 2.0 finding Protime Stat 12/05/2007 [facility] House Prothrombin Time 26.9 Laboratory test 12/05/2007 [facility] House Inr 2.2 finding Laboratory test 11/21/2007 [facility] House Inr 1.8 finding Protime Stat 11/21/2007 [facility] House Prothrombin Time 21.8 Protime Stat 10/31/2007 [facility] House Prothrombin Time 36.0 Laboratory test 10/31/2007 [facility] House Inr 3.0 finding Protime W/ Inr 07/24/2007 [facility] House Prothrombin Time 24.3 Inr 2.18 Protime 06/18/2007 [facility] Inr 1.[address] [place] [address] [phone] Protime 16.7 High 10.9-13.3 Protime 05/23/2007 [facility] Inr 3.[address] [place] [address] [phone] Protime 21.6 High 10.9-13.1 Protime 04/06/2007 [facility] Inr 1.[address] [place] [address] [phone] Protime 13.7 High 10.9-13.1 Laboratory test 04/06/2007 [facility] PTT (Aptt) 23.3 20.4- 29.5 [address] [place] [address] [phone] Basic Metabolic 04/06/2007 [facility] One Over 0.[address] [place] [address] [phone] Anion Gap 6.0 mmol/L 2-11 115 BUN 16 mg/dL 6-24 Calcium 9.0 mg/dL 8.7-10.2 Chloride 108 mmol/L 101-111 Co2 (Carbon Dioxide) 27.0 mmol/L 22-32 Glucose 108 mg/dL High 70-105 Potassium 4.4 mmol/L 3.5-5.0 Sodium 141 mmol/L 135-145 BUN/Creatinine Ratio 10.7 8-20 Creatinine 1.5 mg/dL High 0.5-1.4 CBC With 04/06/2007 [facility] White Blood 6.4 CUMM 4.8-10.8 Electronic Diff [address] [place] [address] [phone] Abs Basophils 0 0-0.2 Abs Eosinophils 0.2 0-0.6 Absolute Neutrophil Count 4.5 1.5-7.7 Abs Lymphs 1.1 1.0-4.8 Abs Mononuclear 0.6 0-0.8 Basophil % 0.6 % 0-2 Hematocrit 47 % 42-52 116 Hemoglobin 15.7 g/dL 14.0-18.0 Eosinophil % 2.9 % 0-6 Gran % 69.8 % 38-83 Lymph % 17.2 % Low 20-45 Mean Corpuscular HGB Cone 33 g/dL 32-36 Mean Corpuscular Hemoglob 30 pg 27-31 Mean Corpuscular Volume 90 um3 80-94 Mean Platelet Volume 8.7 um3 7.4-10.4 Mononuclear % 9.5 % High 1-9 Platelet Count 223 CUMM 150-450 Red Cell Count 5.20 CUMM 4.6-6.2 Redcell Distribution WDTH 15 % 10.5-15 CBC W/ Electronic 03/09/2007 [facility] White Blood 6.1 CUMM 4.8-10.[address] [place] [address] [phone] Abs Basophils 0 0-0.2 Abs Eosinophils 0.5 0-0.6 Absolute Neutrophil Count 3.9 1.5-7.7 Abs Lymphs 0.9 Low 1.0-4.8 Abs Mononuclear 0.7 0-0.8 Basophil % 0.5 % 0-2 Hematocrit 43 % 42-52 117 Hemoglobin 14.5 g/dL 14.0-18.0 Eosinophil % 7.9 % High 0-6 Gran % 64.0 % 38-83 Lymph % 15.4 % Low 20-45 Mean Corpuscular HGB Cone 34 g/dL 32-36 Mean Corpuscular Hemoglob 30 pg 27-31 Mean Corpuscular Volume 90 um3 80-94 Mean Platelet Volume 8.7 um3 7.4-10.4 Mononuclear % 12.2 % High 1-9 Platelet Count 201 CUMM 150-450 Red Cell Count 4.78 CUMM 4.6-6.2 Redcell Distribution WDTH 15 % 10.5-15 Laboratory test 03/09/2007 [facility] Erythrocyte Sed 20 MM/HR 0-[address] [place] [address] [phone] Comp Metabolic 03/09/2007 [facility] One Over 0.[address] [place] [address] [phone] Anion Gap 8.0 mmol/L 2-11 118 Albumin/Globulin Ratio 1.2 1-3 Albumin 3.8 GM/DL 3.2-5.2 Alkaline Phosphatase 68 U/L 39-117 Alt (SGPT) 22 U/L 17-63 Ast (Sgot) 25 U/L 12-42 BUN 17 mg/dL 6-24 Calcium 9.5 mg/dL 8.7-10.2 Chloride 107 mmol/L 101-111 Co2 (Carbon Dioxide) 27.0 mmol/L 22-32 Globulin 3.2 GM/DL 2-4 Glucose 98 mg/dL 70-105 Potassium 4.8 mmol/L 3.5-5.0 Sodium 142 mmol/L 135-145 Bilirubin Total 1.0 mg/dL 0.4-1.5 Total Protein 7.0 GM/DL 6.2-8.1 BUN/Creatinine Ratio 13.1 8-20 Creatinine 1.3 mg/dL 0.5-1.4 Lipid Profile 03/09/2007 [facility] Cholesterol/HDL 4.44 1- 4.97 (Trig/Chol/HDL) [address] [place] [address] [phone] Cholesterol 160 mg/dL Less Than 200 119 Triglyceride 118 mg/dL 40-200 High Density Lipoprotein 36 mg/dL Low 40-60 120 Low Density Lipoprotein 100 mg/dL Less Than 100 121 Laboratory test 03/09/2007 [facility] PSA Screening 0.800 0.01-4.0 [address] NG/[place] [address] [phone] 1 Because ethnic data is not always readily available, this report includes an eGFR for both -Americans and non- Americans. The National Kidney Disease Education Program (NKDEP) does not endorse the use of the MDRD equation for patients that are not between the ages of 18 and 70, are , have extremes of body size, muscle mass, or nutritional status, or are non- or non-. According to the National Kidney Foundation, irrespective of diagnosis, the stage of the disease is based on the level of kidney function: Stage Description GFR(mL/min/1.73 m(2)) 1 Kidney damage with normal or decreased GFR 90 2 Kidney damage with mild decrease in GFR 60-89 3 Moderate decrease in GFR 30-59 4 Severe decrease in GFR 15-29 5 Kidney failure <15 (or dialysis) 2 Because ethnic data is not always readily available, this report includes an eGFR for both -Americans and non- Americans. The National Kidney Disease Education Program (NKDEP) does not endorse the use of the MDRD equation for patients that are not between the ages of 18 and 70, are , have extremes of body size, muscle mass, or nutritional status, or are non- or non-. According to the National Kidney Foundation, irrespective of diagnosis, the stage of the disease is based on the level of kidney function: Stage Description GFR(mL/min/1.73 m(2)) 1 Kidney damage with normal or decreased GFR 90 2 Kidney damage with mild decrease in GFR 60-89 3 Moderate decrease in GFR 30-59 4 Severe decrease in GFR 15-29 5 Kidney failure <15 (or dialysis) 3 Desirable: <150 Borderline High: 150-199 High: 200-499 Very High: >500 4 Desirable: <200 Borderline High: 200-239 High: >239 5 Low: <40 Desirable: 40-60 High: >60 6 Desirable: <100 Near Optimal: 100-129 Borderline High: 130-159 High: 160-189 Very High: >189 7 Normal Range 180 to 914 Indeterminate Range 145 to 180 Deficient Range <145 8 Test Performed by: [facility] [address] , [place] [address] 9 Because ethnic data is not always readily available, this report includes an eGFR for both -Americans and non- Americans. The National Kidney Disease Education Program (NKDEP) does not endorse the use of the MDRD equation for patients that are not between the ages of 18 and 70, are , have extremes of body size, muscle mass, or nutritional status, or are non- or non-. According to the National Kidney Foundation, irrespective of diagnosis, the stage of the disease is based on the level of kidney function: Stage Description GFR(mL/min/1.73 m(2)) 1 Kidney damage with normal or decreased GFR 90 2 Kidney damage with mild decrease in GFR 60-89 3 Moderate decrease in GFR 30-59 4 Severe decrease in GFR 15-29 5 Kidney failure <15 (or dialysis) 10 Desirable: <150 Borderline High: 150-199 High: 200-499 Very High: >500 11 Desirable: <200 Borderline High: 200-239 High: >239 12 Low: <40 Desirable: 40-60 High: >60 13 Desirable: <100 Near Optimal: 100-129 Borderline High: 130-159 High: 160-189 Very High: >189 14 FASTING 10 HOUR 15 Desirable <150 Borderline high 150-199 High 200-499 Very High >500 16 Desirable <200 Borderline high 200-239 High >239 17 Low <40 Desirable: 40-60 High: >60 18 Desirable: <100 mg/dL Near Optimal: 100-129 mg/dL Borderline High: 130-159 mg/dL High: 160-189 mg/dL Very High: >189 mg/dL 19 Because ethnic data is not always readily available, this report includes an eGFR for both -Americans and non- Americans. The National Kidney Disease Education Program (NKDEP) does not endorse the use of the MDRD equation for patients that are not between the ages of 18 and 70, are , have extremes of body size, muscle mass, or nutritional status, or are non- or non-. According to the National Kidney Foundation, irrespective of diagnosis, the stage of the disease is based on the level of kidney function: Stage Description GFR(mL/min/1.73 m(2)) 1 Kidney damage with normal or decreased GFR 90 2 Kidney damage with mild decrease in GFR 60-89 3 Moderate decrease in GFR 30-59 4 Severe decrease in GFR 15-29 5 Kidney failure <15 (or dialysis) 20 Copy Result to: CHIN REYNOLDS ([id number]) 21 Because ethnic data is not always readily available, this report includes an eGFR for both -Americans and non- Americans. The National Kidney Disease Education Program (NKDEP) does not endorse the use of the MDRD equation for patients that are not between the ages of 18 and 70, are , have extremes of body size, muscle mass, or nutritional status, or are non- or non-. According to the National Kidney Foundation, irrespective of diagnosis, the stage of the disease is based on the level of kidney function: Stage Description GFR(mL/min/1.73 m(2)) 1 Kidney damage with normal or decreased GFR 90 2 Kidney damage with mild decrease in GFR 60-89 3 Moderate decrease in GFR 30-59 4 Severe decrease in GFR 15-29 5 Kidney failure <15 (or dialysis) 22 Serologic response to B. burgdorferi infection is not detected, but cannot rule out early infection during which low or undetectable antibody levels to B. burgdorferi may be present. If clinically indicated, a new serum specimen should be submitted in 7-14 days. Test Performed by: [place] [address] Doctor Of Nursing Practice: Sahil Merchant II, M.D., Ph.D. 23 Because ethnic data is not always readily available, this report includes an eGFR for both -Americans and non- Americans. The National Kidney Disease Education Program (NKDEP) does not endorse the use of the MDRD equation for patients that are not between the ages of 18 and 70, are , have extremes of body size, muscle mass, or nutritional status, or are non- or non-. According to the National Kidney Foundation, irrespective of diagnosis, the stage of the disease is based on the level of kidney function: Stage Description GFR(mL/min/1.73 m(2)) 1 Kidney damage with normal or decreased GFR 90 2 Kidney damage with mild decrease in GFR 60-89 3 Moderate decrease in GFR 30-59 4 Severe decrease in GFR 15-29 5 Kidney failure <15 (or dialysis) 24 SEE RESULT BELOW Name: CAROLYN ROSA : [address]: Zeina España MD Acct: [id number] Unit: [id number] AGE: 80 Location: [facility] Re10/14/15 SEX: M Status: REG REF SPEC: [id number] GILBERTO: 10/14/15-[address] [facility] [address]: Zeina España MD REQ: [id number] RECD: 10/14/151107 STATUS: SOUT _ ORDERED: LEVEL I FINAL DIAGNOSIS Pacemaker generator, removal: Foreign body (pacemaker generator) (Gross diagnosis). CLINICAL HISTORY Third degree heart block PRE-OPERATIVE DIAGNOSIS Sinus node dysfunction GROSS DESCRIPTION The specimen is received fresh with no source identified, and consists of a 4.8 x 4.4 x 0.7 cm silver metallic medical record consultant. The following inscription is identified: [employer] VEDR01 DDDR SN [id number] [facility]. Per established hospital medical staff protocol, no tissue is submitted. Gross only. Signed (signature on file) Chantell Bui MD [id number] END OF REPORT * ML=Testing performed at Main Lab DEPARTMENT OF PATHOLOGY, [address] [place] [address] James Oliveira M.D. Director [facility] # [id number] 25 Desirable <150 Borderline high 150-199 High 200-499 Very High >500 26 Desirable <200 Borderline high 200-239 High >239 27 Low <40 Desirable: 40-60 High: >60 28 Desirable: <100 mg/dL Near Optimal: 100-129 mg/dL Borderline High: 130-159 mg/dL High: 160-189 mg/dL Very High: >189 mg/dL 29 Because ethnic data is not always readily available, this report includes an eGFR for both -Americans and non- Americans. The National Kidney Disease Education Program (NKDEP) does not endorse the use of the MDRD equation for patients that are not between the ages of 18 and 70, are , have extremes of body size, muscle mass, or nutritional status, or are non- or non-. According to the National Kidney Foundation, irrespective of diagnosis, the stage of the disease is based on the level of kidney function: Stage Description GFR(mL/min/1.73 m(2)) 1 Kidney damage with normal or decreased GFR 90 2 Kidney damage with mild decrease in GFR 60-89 3 Moderate decrease in GFR 30-59 4 Severe decrease in GFR 15-29 5 Kidney failure <15 (or dialysis) 30 PT IS FASTING 31 Desirable <150 Borderline high 150-199 High 200-499 Very High >500 32 Desirable <200 Borderline high 200-239 High >239 33 Low <40 Desirable: 40-60 High: >60 34 Desirable <100 Near Optimal 100-129 Borderline high 130-159 High 160-189 Very High >189 35 >100 to <200 pg/mL: likely compensated congestive heart failure (CHF) 200 to 400 pg/mL: likely moderate CHF >400 pg/mL: likely moderate to severe CHF [place] [facility] 36 Because ethnic data is not always readily available, this report includes an eGFR for both -Americans and non- Americans. The National Kidney Disease Education Program (NKDEP) does not endorse the use of the MDRD equation for patients that are not between the ages of 18 and 70, are , have extremes of body size, muscle mass, or nutritional status, or are non- or non-. According to the National Kidney Foundation, irrespective of diagnosis, the stage of the disease is based on the level of kidney function: Stage Description GFR(mL/min/1.73 m(2)) 1 Kidney damage with normal or decreased GFR 90 2 Kidney damage with mild decrease in GFR 60-89 3 Moderate decrease in GFR 30-59 4 Severe decrease in GFR 15-29 5 Kidney failure <15 (or dialysis) 37 Reference Range and Interpretation: TnI (ng/mL) Interpretation Less Than 0.03 ng/mL Not supportive of diagnosis of [place] 0.03 - 0.50 ng/mL Indeterminate: suggest serial studies if clinically indicated. Greater than 0.5 ng/mL Consistent with diagnosis of [place] 38 >100 to <200 pg/mL: likely compensated congestive heart failure (CHF) 200 to 400 pg/mL: likely moderate CHF >400 pg/mL: likely moderate to severe CHF [place] [facility] 39 Because ethnic data is not always readily available, this report includes an eGFR for both -Americans and non- Americans. The National Kidney Disease Education Program (NKDEP) does not endorse the use of the MDRD equation for patients that are not between the ages of 18 and 70, are , have extremes of body size, muscle mass, or nutritional status, or are non- or non-. According to the National Kidney Foundation, irrespective of diagnosis, the stage of the disease is based on the level of kidney function: Stage Description GFR(mL/min/1.73 m(2)) 1 Kidney damage with normal or decreased GFR 90 2 Kidney damage with mild decrease in GFR 60-89 3 Moderate decrease in GFR 30-59 4 Severe decrease in GFR 15-29 5 Kidney failure <15 (or dialysis) 40 [MG] affected by ICTERUS 41 Reference Range and Interpretation: TnI (ng/mL) Interpretation Less Than 0.03 ng/mL Not supportive of diagnosis of [place] 0.03 - 0.50 ng/mL Indeterminate: suggest serial studies if clinically indicated. Greater than 0.5 ng/mL Consistent with diagnosis of [place] 42 Because ethnic data is not always readily available, this report includes an eGFR for both -Americans and non- Americans. The National Kidney Disease Education Program (NKDEP) does not endorse the use of the MDRD equation for patients that are not between the ages of 18 and 70, are , have extremes of body size, muscle mass, or nutritional status, or are non- or non-. According to the National Kidney Foundation, irrespective of diagnosis, the stage of the disease is based on the level of kidney function: Stage Description GFR(mL/min/1.73 m(2)) 1 Kidney damage with normal or decreased GFR 90 2 Kidney damage with mild decrease in GFR 60-89 3 Moderate decrease in GFR 30-59 4 Severe decrease in GFR 15-29 5 Kidney failure <15 (or dialysis) 43 Serum levels of PSA measured using the [employer] DXI Hybritech immunoassay should not be interpreted as absolute evidence of the presence or absence of disease. The PSA value should be used in conjunction with other pertinent clinical diagnostic procedures. A PSA value in the range of 0.1 to 0.6 ng/ml is indeterminate if being used as an indicator of recurrent or residual disease. The values obtained with different assay methods or kits cannot be used interchangeably. 44 Because ethnic data is not always readily available, this report includes an eGFR for both -Americans and non- Americans. The National Kidney Disease Education Program (NKDEP) does not endorse the use of the MDRD equation for patients that are not between the ages of 18 and 70, are , have extremes of body size, muscle mass, or nutritional status, or are non- or non-. According to the National Kidney Foundation, irrespective of diagnosis, the stage of the disease is based on the level of kidney function: Stage Description GFR(mL/min/1.73 m(2)) 1 Kidney damage with normal or decreased GFR 90 2 Kidney damage with mild decrease in GFR 60-89 3 Moderate decrease in GFR 30-59 4 Severe decrease in GFR 15-29 5 Kidney failure <15 (or dialysis) 45 HDL Interpretation: Undesirable: High Risk: Less than 40 mg/dL Desirable: Low Risk: Greater than 60 mg/dL 46 LDL Interpretation: Low Risk Optimal Level: LDL Less than 100 mg/dL Near or Above Optimal: LDL 100-129 mg/dL Borderline High Risk: LDL 130-159 mg/dL High Risk: LDL 160-189 mg/dL Very High Risk: LDL Greater than 189 mg/dL 47 RUN DATE: 11/15/12 [facility] LAB LIVE PAGE 1 RUN TIME: [address] [place] [id number] Specimen Inquiry Name: CAROLYN ROSA : [address]: Kole Hollingsworth MD Acct: [id number] Unit: [id number] AGE: 77 Location: ENDO Re11/13/12 SEX: M Status: REG REF SPEC: [id number] GILBERTO: 11/13/12- [facility] DR: Kole Hollingsworth MD REQ: [id number] RECD: 11/13/12-1846 STATUS: VERENICE CAMACHO DR: Chun Reynolds MD _ ORDERED: LEVEL IV FINAL DIAGNOSIS Colon, ileocecal nodule, biopsy: A. Tubular adenoma. B. No high grade dysplasia or malignancy. CLINICAL HISTORY Gastroesophageal reflux, colorectal screen POST-OPERATIVE DIAGNOSIS Hiatal hernia, gastroesophageal reflux disease - no Jack's; diverticulosis, polyp GROSS DESCRIPTION The specimen is received in formalin labeled Carolyn Rosa, Biopsy Ileocecal Nodule, and consists of multiple rocha, soft tissue fragments measuring 0.5 x 0.4 x 0.1 cm. Submitted entirely, one cassette. Signed (signature on file) James Oliveira MD 1313 END OF REPORT * ML=Testing performed at Main Lab DEPARTMENT OF PATHOLOGY, [address] [place] [address] James Oliveira M.D. Director [facility] Permit #[id number] 48 Anion gap measurement may be of limited value in the presence of any alkalosis, especially in a combined acid base disorder. . 49 A metabolite of Naproxen, O-desmethylnaproxen, has been shown to interfere with the Jendrassik-Hankinson method for measuring total bilirubin. Samples from patients who have taken Naproxen have shown spurious elevation in total bilirubin levels. 50 Because ethnic data is not always readily available, this report includes an eGFR for both -Americans and non- Americans. The National Kidney Disease Education Program (NKDEP) does not endorse the use of the MDRD equation for patients that are not between the ages of 18 and 70, are , have extremes of body size, muscle mass, or nutritional status, or are non- or non-. According to the National Kidney Foundation, irrespective of diagnosis, the stage of the disease is based on the level of kidney function: Stage Description GFR(mL/min/1.73 m(2)) 1 Kidney damage with normal or decreased GFR 90 2 Kidney damage with mild decrease in GFR 60-89 3 Moderate decrease in GFR 30-59 4 Severe decrease in GFR 15-29 5 Kidney failure <15 (or dialysis) 51 CHOLESTEROL INTERPRETATION: Desirable: Less than 200 MG/DL Borderline-High Risk: 200-239 MG/DL High-Risk: 240 MG/DL and over 52 HDL INTERPRETATION: Undesirable: High Risk: Less than 40 MG/DL Desirable: Low Risk: Greater than 60 MG/DL 53 LDL INTERPRETATION: Low Risk Optimal Level: LDL Less than 100 MG/DL Near or Above Optimal: LDL 100-129 MG/DL Borderline High Risk: LDL 130-159 MG/DL High Risk: LDL 160-189 MG/DL Very High Risk: LDL Greater than 189 MG/DL 54 Anion gap measurement may be of limited value in the presence of any alkalosis, especially in a combined acid base disorder. . 55 A metabolite of Naproxen, O-desmethylnaproxen, has been shown to interfere with the Jendrassik-Jen method for measuring total bilirubin. Samples from patients who have taken Naproxen have shown spurious elevation in total bilirubin levels. 56 Because ethnic data is not always readily available, this report includes an eGFR for both -Americans and non- Americans. The National Kidney Disease Education Program (NKDEP) does not endorse the use of the MDRD equation for patients that are not between the ages of 18 and 70, are , have extremes of body size, muscle mass, or nutritional status, or are non- or non-. According to the National Kidney Foundation, irrespective of diagnosis, the stage of the disease is based on the level of kidney function: Stage Description GFR(mL/min/1.73 m(2)) 1 Kidney damage with normal or decreased GFR 90 2 Kidney damage with mild decrease in GFR 60-89 3 Moderate decrease in GFR 30-59 4 Severe decrease in GFR 15-29 5 Kidney failure <15 (or dialysis) 57 CHOLESTEROL INTERPRETATION: Desirable: Less than 200 MG/DL Borderline-High Risk: 200-239 MG/DL High-Risk: 240 MG/DL and over 58 HDL INTERPRETATION: Undesirable: High Risk: Less than 40 MG/DL Desirable: Low Risk: Greater than 60 MG/DL 59 LDL INTERPRETATION: Low Risk Optimal Level: LDL Less than 100 MG/DL Near or Above Optimal: LDL 100-129 MG/DL Borderline High Risk: LDL 130-159 MG/DL High Risk: LDL 160-189 MG/DL Very High Risk: LDL Greater than 189 MG/DL 60 Anion gap measurement may be of limited value in the presence of any alkalosis, especially in a combined acid base disorder. . 61 A metabolite of Naproxen, O-desmethylnaproxen, has been shown to interfere with the Jendrassik-Jen method for measuring total bilirubin. Samples from patients who have taken Naproxen have shown spurious elevation in total bilirubin levels. 62 Because ethnic data is not always readily available, this report includes an eGFR for both -Americans and non- Americans. The National Kidney Disease Education Program (NKDEP) does not endorse the use of the MDRD equation for patients that are not between the ages of 18 and 70, are , have extremes of body size, muscle mass, or nutritional status, or are non- or non-. According to the National Kidney Foundation, irrespective of diagnosis, the stage of the disease is based on the level of kidney function: Stage Description GFR(mL/min/1.73 m(2)) 1 Kidney damage with normal or decreased GFR 90 2 Kidney damage with mild decrease in GFR 60-89 3 Moderate decrease in GFR 30-59 4 Severe decrease in GFR 15-29 5 Kidney failure <15 (or dialysis) 63 Lymphopenia % 64 -- REFERENCE VALUE -- <20.0 (Negative) Test Performed by: [facility] Dpt of Lab Med and Pathology [address] [place] [id number] Doctor Of Nursing Practice: Joseph Anders III, M.D. 65 LDL INTERPRETATION: Low Risk Optimal Level: LDL Less than 100 MG/DL Near or Above Optimal: LDL 100-129 MG/DL Borderline High Risk: LDL 130-159 MG/DL High Risk: LDL 160-189 MG/DL Very High Risk: LDL Greater than 189 MG/DL 66 CHOLESTEROL INTERPRETATION: Desirable: Less than 200 MG/DL Borderline-High Risk: 200-239 MG/DL High-Risk: 240 MG/DL and over 67 Anion gap measurement may be of limited value in the presence of any alkalosis, especially in a combined acid base disorder. . 68 A metabolite of Naproxen, O-desmethylnaproxen, has been shown to interfere with the Jendrassik-Jen method for measuring total bilirubin. Samples from patients who have taken Naproxen have shown spurious elevation in total bilirubin levels. 69 Because ethnic data is not always readily available, this report includes an eGFR for both -Americans and non- Americans. The National Kidney Disease Education Program (NKDEP) does not endorse the use of the MDRD equation for patients that are not between the ages of 18 and 70, are , have extremes of body size, muscle mass, or nutritional status, or are non- or non-. According to the National Kidney Foundation, irrespective of diagnosis, the stage of the disease is based on the level of kidney function: Stage Description GFR(mL/min/1.73 m(2)) 1 Kidney damage with normal or decreased GFR 90 2 Kidney damage with mild decrease in GFR 60-89 3 Moderate decrease in GFR 30-59 4 Severe decrease in GFR 15-29 5 Kidney failure <15 (or dialysis) 70 HDL INTERPRETATION: Undesirable: High Risk: Less than 40 MG/DL Desirable: Low Risk: Greater than 60 MG/DL 71 Serologic response to B. burgdorferi infection is not detected, but cannot rule out early infection during which low or undetectable antibody levels to B. burgdorferi may be present. If clinically indicated, a new serum specimen should be submitted in 7-14 days. Test Performed by: [facility] Dpt of Lab Med and Pathology [address] [place], [place] [id number] Doctor Of Nursing Practice: Joseph Anders III, M.D. 72 Anion gap measurement may be of limited value in the presence of any alkalosis, especially in a combined acid base disorder. . 73 Note change in reference range as of 02/21/08. The change was based on recommendations from the [employer]. 74 A metabolite of Naproxen, O-desmethylnaproxen, has been shown to interfere with the Jendrassik-Hankinson method for measuring total bilirubin. Samples from patients who have taken Naproxen have shown spurious elevation in total bilirubin levels. 75 Because ethnic data is not always readily available, this report includes an eGFR for both -Americans and non- Americans. The National Kidney Disease Education Program (NKDEP) does not endorse the use of the MDRD equation for patients that are not between the ages of 18 and 70, are , have extremes of body size, muscle mass, or nutritional status, or are non- or non-. According to the National Kidney Foundation, irrespective of diagnosis, the stage of the disease is based on the level of kidney function: Stage Description GFR(mL/min/1.73 m(2)) 1 Kidney damage with normal or decreased GFR 90 2 Kidney damage with mild decrease in GFR 60-89 3 Moderate decrease in GFR 30-59 4 Severe decrease in GFR 15-29 5 Kidney failure <15 (or dialysis) 76 CHOLESTEROL INTERPRETATION: Desirable: Less than 200 MG/DL Borderline-High Risk: 200-239 MG/DL High-Risk: 240 MG/DL and over 77 HDL INTERPRETATION: Undesirable: High Risk: Less than 40 MG/DL Desirable: Low Risk: Greater than 60 MG/DL 78 LDL INTERPRETATION: Low Risk Optimal Level: LDL Less than 100 MG/DL Near or Above Optimal: LDL 100-129 MG/DL Borderline High Risk: LDL 130-159 MG/DL High Risk: LDL 160-189 MG/DL Very High Risk: LDL Greater than 189 MG/DL 79 Lymphopenia % 80 CHOLESTEROL INTERPRETATION: Desirable: Less than 200 MG/DL Borderline-High Risk: 200-239 MG/DL High-Risk: 240 MG/DL and over 81 HDL INTERPRETATION: Undesirable: High Risk: Less than 40 MG/DL Desirable: Low Risk: Greater than 60 MG/DL 82 LDL INTERPRETATION: Low Risk Optimal Level: LDL Less than 100 MG/DL Near or Above Optimal: LDL 100-129 MG/DL Borderline High Risk: LDL 130-159 MG/DL High Risk: LDL 160-189 MG/DL Very High Risk: LDL Greater than 189 MG/DL 83 Anion gap measurement may be of limited value in the presence of any alkalosis, especially in a combined acid base disorder. . 84 Note change in reference range as of 02/21/08. The change was based on recommendations from the [employer]. 85 Please note change in reference range effective 07 . 86 A metabolite of Naproxen, O-desmethylnaproxen, has been shown to interfere with the Jendrassik-Hankinson method for measuring total bilirubin. Samples from patients who have taken Naproxen have shown spurious elevation in total bilirubin levels. 87 Because ethnic data is not always readily available, this report includes an eGFR for both -Americans and non- Americans. The National Kidney Disease Education Program (NKDEP) does not endorse the use of the MDRD equation for patients that are not between the ages of 18 and 70, are , have extremes of body size, muscle mass, or nutritional status, or are non- or non-. According to the National Kidney Foundation, irrespective of diagnosis, the stage of the disease is based on the level of kidney function: Stage Description GFR(mL/min/1.73 m(2)) 1 Kidney damage with normal or decreased GFR 90 2 Kidney damage with mild decrease in GFR 60-89 3 Moderate decrease in GFR 30-59 4 Severe decrease in GFR 15-29 5 Kidney failure <15 (or dialysis) 88 FINAL: NO GROWTH DAY 2 (<1,000 CFU/mL) 89 Anion gap measurement may be of limited value in the presence of any alkalosis, especially in a combined acid base disorder. . 90 Note change in reference range as of 02/21/08. The change was based on recommendations from the [employer]. 91 Please note change in reference range effective 07 . 92 A metabolite of Naproxen, O-desmethylnaproxen, has been shown to interfere with the Jendrassik-Jen method for measuring total bilirubin. Samples from patients who have taken Naproxen have shown spurious elevation in total bilirubin levels. 93 Because ethnic data is not always readily available, this report includes an eGFR for both -Americans and non- Americans. The National Kidney Disease Education Program (NKDEP) does not endorse the use of the MDRD equation for patients that are not between the ages of 18 and 70, are , have extremes of body size, muscle mass, or nutritional status, or are non- or non-. According to the National Kidney Foundation, irrespective of diagnosis, the stage of the disease is based on the level of kidney function: Stage Description GFR(mL/min/1.73 m(2)) 1 Kidney damage with normal or decreased GFR 90 2 Kidney damage with mild decrease in GFR 60-89 3 Moderate decrease in GFR 30-59 4 Severe decrease in GFR 15-29 5 Kidney failure <15 (or dialysis) 94 CHOLESTEROL INTERPRETATION: Desirable: Less than 200 MG/DL Borderline-High Risk: 200-239 MG/DL High-Risk: 240 MG/DL and over 95 HDL INTERPRETATION: Undesirable: High Risk: Less than 40 MG/DL Desirable: Low Risk: Greater than 60 MG/DL 96 LDL INTERPRETATION: Low Risk Optimal Level: LDL Less than 100 MG/DL Near or Above Optimal: LDL 100-129 MG/DL Borderline High Risk: LDL 130-159 MG/DL High Risk: LDL 160-189 MG/DL Very High Risk: LDL Greater than 189 MG/DL 97 * SERUM LEVELS OF PSA MEASURED USING THE [employer] ACCESS HYBRITECH IMMUNOASSAY SHOULD NOT BE INTERPRETED ABSOLUTE EVIDENCE OF THE PRESENCE OR ABSENCE OF DISEASE. THE PSA VALUE SHOULD BE USED IN CONJUNCTION WITH OTHER PERTINENT CLINICAL DIAGNOSTIC PROCEDURES. A PSA value in the range of 0.1 to 0.6 ng/ml is indeterminate if being used as an indicator of recurrent or residual disease. . 98 CHOLESTEROL INTERPRETATION: Desirable: Less than 200 MG/DL Borderline-High Risk: 200-239 MG/DL High-Risk: 240 MG/DL and over 99 HDL INTERPRETATION: Undesirable: High Risk: Less than 40 MG/DL Desirable: Low Risk: Greater than 60 MG/DL 100 LDL INTERPRETATION: Low Risk Optimal Level: LDL Less than 100 MG/DL Near or Above Optimal: LDL 100-129 MG/DL Borderline High Risk: LDL 130-159 MG/DL High Risk: LDL 160-189 MG/DL Very High Risk: LDL Greater than 189 MG/DL 101 Lymphopenia % 102 Anion gap measurement may be of limited value in the presence of any alkalosis, especially in a combined acid base disorder. . 103 Note change in reference range as of 02/21/08. The change was based on recommendations from the [employer]. 104 Please note change in reference range effective 07 . 105 FASTING 106 CHOLESTEROL INTERPRETATION: Desirable: Less than 200 MG/DL Borderline-High Risk: 200-239 MG/DL High-Risk: 240 MG/DL and over 107 HDL INTERPRETATION: Undesirable: High Risk: Less than 40 MG/DL Desirable: Low Risk: Greater than 60 MG/DL 108 LDL INTERPRETATION: Low Risk Optimal Level: LDL Less than 100 MG/DL Near or Above Optimal: LDL 100-129 MG/DL Borderline High Risk: LDL 130-159 MG/DL High Risk: LDL 160-189 MG/DL Very High Risk: LDL Greater than 189 MG/DL 109 Anion gap measurement may be of limited value in the presence of any alkalosis, especially in a combined acid base disorder. . 110 Please note change in reference range effective 07 . 111 HEENA VALUE=2.01 ( OF 06/08/07 Recommended INR for Patients on Oral Anticoagulants Prophylaxis 2.0 - 3.0 Treatment of thrombosis 2.0 - 3.0 Prevention of embolism 2.0 - 3.0 Prevention of embolism from prosthetic heart valves 2.5 - 3.5 112 HEENA VALUE=2.00 ( OF 04/18/06) Recommended INR for Patients on Oral Anticoagulants Prophylaxis 2.0 - 3.0 Treatment of thrombosis 2.0 - 3.0 Prevention of embolism 2.0 - 3.0 Prevention of embolism from prosthetic heart valves 2.5 - 3.5 113 HEENA VALUE=2.00 ( OF 04/18/06) Recommended INR for Patients on Oral Anticoagulants Prophylaxis 2.0 - 3.0 Treatment of thrombosis 2.0 - 3.0 Prevention of embolism 2.0 - 3.0 Prevention of embolism from prosthetic heart valves 2.5 - 3.5 114 PLEASE NOTE NEW REFERENCE RANGE EFFECTIVE 05 115 Anion gap measurement may be of limited value in the presence of any alkalosis, especially in a combined acid base disorder. . 116 Lymphopenia % 117 Lymphopenia % 118 Anion gap measurement may be of limited value in the presence of any alkalosis, especially in a combined acid base disorder. . 119 Classification: Desirable . 120 Classification: Low . 121 CALCULATED LDL APPROXIMATES THE VALUE OF A DIRECT LDL MEASUREMENT. Classification: Near or above optimal . 122 * SERUM LEVELS OF PSA MEASURED USING THE [employer] ACCESS HYBRITECH IMMUNOASSAY SHOULD NOT BE INTERPRETED ABSOLUTE EVIDENCE OF THE PRESENCE OR ABSENCE OF DISEASE. THE PSA VALUE SHOULD BE USED IN CONJUNCTION WITH OTHER PERTINENT CLINICAL DIAGNOSTIC PROCEDURES. Procedures Date Code Description Status 10/19/2018 61397 ECHO Transthoracic, Real-Time 2D With Doppler And Color Completed Flow 05/22/2018 53528 EKG Tracing & Interpretation Completed 05/03/2018 15280 Pace Maker Eval W/Iterative Adjustment Single Lead Completed 05/03/2018 18100 Pace Maker Eval W/Iterative Adjustment Single Lead Completed 12/15/2017 66468 EKG Tracing & Interpretation Completed 11/08/2017 13982 Pace Maker Eval W/Iterative Adjustment Single Lead Completed 11/08/2017 85498 Pace Maker Eval W/Iterative Adjustment Single Lead Completed 11/08/2017 65660 Inject/Drain Joint/Bursa Major W/O US Completed 10/31/2017 39059 Inject/Drain Joint/Bursa Major W/O US Completed 10/24/2017 08487 Inject/Drain Joint/Bursa Major W/O US Completed 05/30/2017 80152 EKG Tracing & Interpretation Completed 05/23/2017 31082 Pace Maker Eval W/Iterative Adjustment Single Lead Completed 05/23/2017 84806 Pace Maker Eval W/Iterative Adjustment Single Lead Completed 11/23/2016 38913 Pace Maker Eval W/Iterative Adjustment Single Lead Completed 11/03/2016 72968 EKG Tracing & Interpretation Completed 05/06/2016 47413 Pace Maker Eval W/Iterative Adjustment Single Lead Completed 04/22/2016 14471 ECHO Transthoracic, Real-Time 2D With Doppler And Color Completed Flow 04/21/2016 48723 EKG Tracing & Interpretation Completed 04/21/201668228 Inject/Drain Joint/Bursa Major W/O US Completed 01/26/2016 87170 Remove Impacted Cerumen Completed 11/16/2015 81017 Interrogation Device Eval In Person W/ Completed Analysis,Single,Dual,Mul 11/12/201527962 Inject/Drain Joint/Bursa Major W/O US Completed 10/14/2015 41487 Removal With Replacement Dual Lead System Pulse Completed Generator 10/08/2015 71167 Interrogation Device Eval In Person W/ Completed Analysis,Single,Dual,Mul 04/27/2015 78148 EKG Tracing & Interpretation Completed 04/23/2015 74888 Interrogation Device Eval In Person W/ Completed Analysis,Single,Dual,Mul 11/03/2014 36785 EKG Tracing & Interpretation Completed 10/29/2014 31830 Interrogation Device Eval In Person W/ Completed Analysis,Single,Dual,Mul 05/06/2014 55279 Pace Maker Eval W/Iterative Adjustment Single Lead Completed 04/29/2014 52372 Stress Test Completed 04/29/2014 84094 Myocardial Perfusion Imaging Tomographic (Spect) Completed Multiple Studies 04/21/2014 30638 Myocardial Perfusion Imaging Tomographic (Spect) Completed Multiple Studies 04/18/2014 57670 EKG Tracing & Interpretation Completed 11/04/2013 34831 EKG Tracing & Interpretation Completed 10/29/2013 51824 Pace Maker Eval W/Iterative Adjment Dual Lead Completed 04/30/2013 09520 Pace Maker Eval W/Iterative Adjment Dual Lead Completed 02/12/2013 40803 EKG Tracing & Interpretation Completed 11/13/2012 [id number] Colonoscopy Completed 10/29/2012 35231 Pace Maker Eval W/Iterative Adjment Dual Lead Completed 06/15/2012 54160 Pace Maker Eval W/Iterative Adjment Dual Lead Completed 04/26/2010 57421 Admin Of Inj Completed 03/18/2002 [id number] Colonoscopy Completed Encounters Type Date Location Provider Dx Diagnosis Office Visit 05/22/2018 [facility] Zeina España, I48.2 Chronic atrial 11:45a Of Grinder Set Up Operator Internal M.D. fibrillation Z95.0 Presence of cardiac pacemaker I44.2 Atrioventricular block, complete I47.2 Ventricular tachycardia E78.00 Pure hypercholesterolemia, unspecified Office Visit 12/15/2017 2:40p [facility] Zeina España I48.2 Chronic atrial Of [employer] Operator Internal M.D. fibrillation I10 Essential (primary) hypertension I47.2 Ventricular tachycardia Z95.0 Presence of cardiac pacemaker I44.2 Atrioventricular block, complete E78.00 Pure hypercholesterolemia, unspecified Office Visit 11/29/2017 10:00a 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 cardiac pacemaker I47.2 Ventricular tachycardia I50.32 Chronic diastolic (congestive) heart failure I10 Essential (primary) hypertension E78.00 Pure hypercholesterolemia, unspecified I44.2 Atrioventricular block, complete I48.2 Chronic atrial fibrillation I48.92 Unspecified atrial flutter Office Visit 03/15/2017 2:00p [facility] Internal Jerry Rogers, M25.571 Pain in right Medicine - [place]ER ankle and joints [address] of right foot Office Visit 02/02/2017 9:10a [facility] Internal Chun Mcfarland M54.5 Low back pain Medicine - [place], [address] M.D.,FACP Office Visit 12/06/2016 9:50a [facility] Internal Chun Mcfarland I10 Essential Medicine Brett (primary) M.Bruna,FACP hypertension E78.00 Pure hypercholesterolemia, unspecified I48.2 Chronic atrial fibrillation Office Visit 11/03/2016 1:30p [facility] Zeina [place], I50.32 Chronic diastolic Cardiology Of M.D. (congestive) heart 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 Internal Mary Sharma, Z00.01 Encounter for Medicine N.P. general adult medical exam w abnormal findings I10 Essential (primary) hypertension I50.32 Chronic diastolic (congestive) heart failure I48.2 Chronic atrial fibrillation E78.00 Pure hypercholesterolemia, unspecified R73.01 Impaired fasting glucose K21.9 Gastro-esophageal reflux disease without esophagitis Office Visit 06/07/2016 9:15a [facility] Nasreen Cruz, I10 Essential (primary) Of [facility] [place] hypertension I50.32 Chronic diastolic (congestive) heart failure E78.5 Hyperlipidemia, unspecified Office Visit 05/24/2016 9:00a [facility] Zeina [place], I10 Essential (primary) Of [facility] M.D. hypertension M19.019 Primary osteoarthritis, unspecified shoulder I50.32 Chronic diastolic (congestive) heart failure I48.2 Chronic atrial fibrillation Office Visit 04/21/2016 2:00p [facility] Zeina [place], Z95.0 Presence of Of 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 Internal Chun Mcfarland G47.62 Sleep related Medicine Brett leg cramps Lulu,FAC Office Visit 11/12/2015 8:30a [facility] Stubbs, S46.012A Strain of Services Of [place] ADAM musc/tend the rotator cuff of left shoulder, init M19.012 Primary osteoarthritis, left shoulder M75.42 Impingement syndrome of left shoulder Office Visit 10/13/2015 8:30a [facility] Vanesa Mcfarland M75.82 Other shoulder Medicine Lulu Reynolds,FACP lesions, left shoulder M25.572 Pain in left ankle and joints of left foot F41.9 Anxiety disorder, unspecified Office Visit 10/08/2015 2:00p [facility] Zeina [place], Z95.0 Presence of Of Terrie Lawson cardiac pacemaker I47.2 Ventricular tachycardia I48.2 Chronic atrial fibrillation Z01.810 Encounter for preprocedural cardiovascular examination Office Visit 06/10/2015 9:10a [facility] Vanesa Mcfarland Z00.01 Encounter for Medicine Emma Reynolds M.D.,FACP general adult [address] medical exam w abnormal findings I10 Essential (primary) hypertension M75.82 Other shoulder lesions, left shoulder M25.572 Pain in left ankle and joints of left foot N52.01 Erectile dysfunction due to arterial insufficiency Z23 Encounter for immunization Office Visit 04/27/2015 9:00a [facility] CRISTIN Mackenzie Z95.0 Presence of Of [facility] cardiac pacemaker I10 Essential (primary) hypertension R60.0 Localized edema I49.5 Sick sinus syndrome I48.2 Chronic atrial fibrillation Office Visit 02/25/2015 4:00p [facility] Internal Arya Ramos, CHEMICAL RESEARCH TECHNICIAN 729.5 Pain In Limb Medicine - [address] Office Visit 12/03/2014 8:30a 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 In Situ [employer] Operator Internal Postsurgical 401.1 Hypertension Benign 272.0 Hypercholesterolemia Pure 427.31 Atrial Fibrillation 782.3 Edema Office Visit 05/06/2014 8:00a [facility] Zeina [place], 401.1 Hypertension Of [employer] Operator Internal M.D. Benign V45.01 Cardiac Pacemaker In Situ Postsurgical 427.31 Atrial Fibrillation 428.0 Congestive Heart Failure Unspecified Office Visit 04/18/2014 1:30p [facility] Zeina [place] 427.31 Atrial Cardiology Of M.D. Fibrillation [employer] Operator Internal 428.0 Congestive Heart Failure Unspecified V45.01 Cardiac Pacemaker In Situ Postsurgical 786.50 Pain Chest Unspec Office Visit 04/16/2014 4:40p [facility] Internal Chun Mcfarland 428.32 Diastolic Heart Medicine Lulu Reynolds,FACP Failure Chronic Office Visit 03/07/2014 3:30p 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 Internal Chun Mcfarland 427.31 Atrial Medicine Lulu Reynolds,FACP Fibrillation 401.1 Hypertension Benign 272.2 Hyperlipidemia Mixed Office Visit 11/04/2013 9:00a [facility] Zeina [place] 427.31 Atrial Cardiology Of M.D. Fibrillation [employer] Operator Internal 428.0 Congestive Heart Failure Unspecified 427.1 Paroxysmal Ventricular Tachycardia V45.01 Cardiac Pacemaker In Situ Postsurgical Office Visit 02/12/2013 9:00a [facility] Zeina [place] 427.32 Atrial Flutter Of [employer] Operator Internal M.D. 427.1 Paroxysmal Ventricular Tachycardia 427.81 Sinoatrial Node Dysfunction 427.89 Cardiac Dysrhythmia Other Office Visit 10/30/2012 10:00a [facility] Internal Amy De La Vega, 307.49 Sleep Disorder Medicine N.P. Other Office Visit 10/16/2012 3:00p [facility] Internal Amy De La Vega, 307.49 Sleep Disorder Medicine N.P. Other Office Visit 06/06/2012 10:30a [facility] Internal Chun Mcfarland V70.0 Examination Medicine Lulu Reynolds,[facility] General Medical Routine AT Health Care Facility 790.21 Impaired Fasting Glucose 427.31 Atrial Fibrillation 272.2 Hyperlipidemia Mixed V76.51 Special Screening For Malignant Neoplasms Colon Office Visit 12/06/2011 1:45p [facility] Internal Amy De La Vega, 380.4 Impacted Medicine N.P. Cerumen 428.0 Congestive Heart Failure Unspecified Office Visit 11/17/2011 9:30a [facility] Internal Chun Mcfarland 428.0 Congestive Heart Medicine Lulu Reynolds,EDMUND Failure Unspecified 427.31 Atrial Fibrillation V06.1 Cgkrtthqoy-Gcbgqgd-Qdunclfs Combined (DTaP) Office Visit 05/19/2011 9:10a DO Not Use Terrie Mcfarland V70.0 Examination AT Jean Claude Reynolds M.D.,[facility] General Medical Routine AT Health Care Facility 427.31 Atrial Fibrillation 790.21 Impaired Fasting Glucose 401.1 Hypertension Benign 272.0 Hypercholesterolemia Pure Office Visit 02/08/2011 1:40p Rheumatology Anshul Palacios, 724.5 Backache Unspec Services Of Terrie Lawson 719.46 Pain Joint Lower Leg Office Visit 01/06/2011 11:00a DO Not Use Terrie Mcfarland 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.,[place] Arthritis 466.0 Bronchitis Acute 272.2 Hyperlipidemia Mixed Office Visit 12/07/2010 2:40p DO Not Use Terrie Mcfarland 716.99 Arthropathy AT Jean Claude Reynolds M.D.,[facility] Unspec Multiple Sites 780.79 Malaise And Fatigue Other 728.88 Rhabdomyolysis 272.2 Hyperlipidemia Mixed Office Visit 10/14/2010 8:40a DO Not Use [employer] Operator Internal AT Chun Reynolds, 724.2 Lumbago Jean Claude Lawson,FACP 790.21 Impaired Fasting Glucose 401.1 Hypertension Benign 427.32 Atrial Flutter Office Visit 06/01/2010 1:00p DO Not Use [employer] Internal Chun Mcfarland 427.32 Atrial Flutter AT Jean Claude Reynolds M.D.,FACP V58.61 Anticoagulants Hematology Nurse Educator (Current) Use Encounter 272.2 Hyperlipidemia Mixed 401.1 Hypertension Benign 790.21 Impaired Fasting Glucose Office Visit 11/25/2009 9:00a DO Not Use [employer] Internal Chun Mcfarland 599.71 Gross Hematuria AT Jean Claude Reynolds M.D.,FACP 427.32 Atrial Flutter 272.2 Hyperlipidemia Mixed 780.79 Malaise And Fatigue Other Office Visit 05/22/2009 9:00a DO Not Use [employer] Internal Chun Mcfarland 427.32 Atrial Flutter AT Jean Claude Reynolds M.D.,FACP V58.61 Anticoagulants Hematology Nurse Educator (Current) Use Encounter 724.9 Back Disorders Other Unspec 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 110.1 Dermatophytosis Nail 272.2 Hyperlipidemia Mixed V04.81 Need For Prophylactic Vaccination & Inoculation/Influenza Office Visit 03/30/2009 9:40a DO Not Use [employer] Internal Chun Mcfarland 724.9 Back Disorders Other AT Jean Claude Reynolds M.D.,FACP Unspec Office Visit 10/20/2008 10:00a DO Not Use [employer] Up Operator Internal Beena Phillip,P 272.2 Hyperlipidemia Mixed AT [facility] A 401.1 Hypertension Benign V58.61 Anticoagulants Snf (Current) Use Encounter 427.32 Atrial Flutter Office Visit 04/14/2008 8:30a DO Not Use [employer] Operator Internal AT Chun Reynolds, 724.3 Sciatica Jean Claude Lawson,FACP V58.61 Anticoagulants Snf (Current) Use Encounter 427.32 Atrial Flutter V04.81 Need For Prophylactic Vaccination & Inoculation/Influenza v04.81 Need For Prophylactic Vaccination & Inoculation/Influenza Office Visit 02/13/2008 11:20a DO Not Use [employer] Internal Chun Mcfarland 427.32 Atrial Flutter AT Jean Claude Reynolds M.D.,FACP V58.61 Anticoagulants Hematology Nurse Educator (Current) Use Encounter 401.1 Hypertension Benign 272.2 Hyperlipidemia Mixed Office Visit 12/05/2007 DO Not Use [facility] Chun Mcfarland V58.61 Anticoagulants Long 8:40a AT Jean Claude Reynolds M.D.,FAC Term (Current) Use Encounter 427.32 Atrial Flutter 401.1 Hypertension Benign 724.9 Back Disorders Other Unspec 453.40 Acute Venous Embolism & Thrombosis,Unspec Deep Vessels Lower 272.2 Hyperlipidemia Mixed 600.90 Hyperplasia Of Prostate,Unspecified W/O Urinary Obstruction Office Visit 06/07/2007 1:40p DO Not Use [facility] Chun Mcfarland 427.32 Atrial Flutter AT Jean Claude Reynolds M.D.,[facility] V58.61 Anticoagulants Hematology Nurse Educator (Current) Use Encounter 401.1 Hypertension Benign Plan of Treatment Future Appointment(s):10/28/2019 9:20 am - Aman Segal M.D. at [facility] Internal Medicine - Nqfjfmtut85/29/2019 3:20 pm - Zeina [place] M.D. at [facility]10/29/2018 2:30 pm - Ica Pacer Schedule at [facility]10/22/2018 - Aman Segal M.D.Z00.00 Encounter for general adult medical examination without abnoComments:Discussed the new shingles vaccine; other shots current. (+) dental, eye exams. Colon exam done [id number] up: yearly or prnI10 Essential (primary) hypertensionComments:BPs goodE78.00 Pure hypercholesterolemia, unspecifiedComments:On Rx; lipid check due again in .2 Chronic atrial fibrillationComments:Follows with cardiology; no cardiac c/oZ95.0 Presence of cardiac cphorvpzdI53.9 Gastro-esophageal reflux disease without esophagitisComments:No sx with RxN40.0 Benign prostatic hyperplasia without lower urinary tract symComments:Follows with urology
--- OUTSIDE RECORDS SUMMARY | 2018-10-25 01:57 | XMS REPORT | Continuity of Care Document ---
:1935 External Reference #:[id number] Author Name Bárbara Karina Care Team Providers Name Role Phone Aman Segal III, MD Primary Care Physician Unavailable Payers Date Identification Numbers Payment Provider Subscriber Policy Number: [id number] Medicare Carolyn María Moe PayID: [id number] [address] [place] [address] Policy Number: [id number] [facility] Carolyn Rosa PayID: [id number] [address] [place] [address] Expires: 2017 Policy Number: [id number] [facility] Medicare Solutions Carolyn Rosa Group Number: [id number] [address] [address] PayID: [id number] [place] [address] Advance Directives Description No Information Available Problems Active Problems Provider Date Paroxysmal ventricular tachycardia Zeina España M.D. Onset: 11/04/2013 Chronic atrial fibrillation Zeina España M.D. Onset: 10/08/2015 Complete atrioventricular block Zeina España M.D. Onset: 04/21/2016 Chronic diastolic heart failure Zeina Espaañ M.D. Onset: 04/21/2016 Anticoagulant therapy Chun Reynolds [...] Status Lives With Alone Occupation Retired Occupation [employer] Cigarette Use Quit 45 Years Ago ETOH [...] 03/14/2017 0.5mg Tablets every day as Lulu ReynoldsFACP needed Atorvastatin Calcium take 1 tablet by 90tabs Chun Mcfarland 12/06/2016 mouth at bedtime Lulu Reynolds FACP 10mg Tablets Carvedilol 1 by mouth twice 180tabs I10 Zeina España, 05/24/2016 6.25mg a day M.DPhillip Tablets Aldactone take one tab 4 90tabs Zeina España, 05/10/2016 25mg Tablets days a week M.DPhillip Colestipol HCL take 1 tablet 180tabs Zeina España, 01/12/2016 1gm twice a day M.DPhillip Tablets Esomeprazole take 1 capsule 90caps Chun Mcfarland 04/22/2015 Magnesium daily Lulu Reynolds FACP 20mg Capsules DR Celecoxib take 1 capsule 180caps Chun Mcfarland 03/15/2015 200mg twice a day as Lulu Reynolds,KAUSHIK Capsules needed ( taking 1 tablet every day generally ) Furosemide take 2 tablets on 320tabs [facility]. 05/03/2014 20mg Tablets mondayLuzma M.D. monday, monday [...] Mcfarland 06/20/2017 - 240(27Fe) mg day Lulu Reynolds,[facility] 11/29/2017 Tablets Norvasc 1 by mouth every [...] Mcfarland 06/10/2015 - 50mg Tablets needed Lulu Reynolds,[facility] 04/23/2016 Prednisone 5tabx 2days,4 30tabs 729.5 Arya Ramos NP 02/25/2015 - 10mg [id number] 04/23/2015 Tablets [id number],3fsit1q ays,1tabxday. Colestid po bid 180tabs Chun Mcfarland 07/18/2013 - 1gm Id#[id number] Lulu Reynolds,[facility] 12/04/2013 Tablets Lorazepam take 1 tablet as [...] - 6.5% ear every 3 months Lulu Reynolds,[facility] 06/06/2012 Solution Furosemide po qam Chun Mcfarland 11/17/2011 - 40mg Lulu Reynolds,[facility] 11/17/2011 Tablets Atorvastatin 2 po qd 150tabs 530.81 Unknown 11/17/2011 - Calcium 10/30/2012 10mg Tablets Pravastatin Sodium Take 1 Tablet AT 90tabs Chun Mcfarland 05/19/2011 - Bedtime Lulu Reynolds,[facility] 06/13/2016 20mg Tablets Celebrex take 1 capsule 90caps Chun Mcfarland 03/15/2011 - 200mg daily as needed ( Lulu Reynolds,[facility] 03/15/2015 Capsules pt taking daily) Celebrex 1 po qd 30caps Chun Mcfarland 01/06/2011 - 100mg Lulu Reynolds,[facility] 03/15/2011 Capsules Celebrex 1 po qd 30caps Chun Mcfarland 01/06/2011 - 200mg Lulu Reynolds,[facility] 01/06/2011 Capsules Doxycycline Hyclate 1 po bid 14tabs Aman Saavedra 12/24/2010 - Lulu Segal 01/06/2011 100mg Tablets Celebrex 1 po qd 30caps Chun Mcfarland 12/07/2010 - 200mg Lulu Reynolds,[facility] 01/06/2011 Capsules Pravastatin Sodium 1 po qpm 90tabs Aman Saavedra 06/01/2010 - Lulu Segal 05/19/2011 40mg Tablets Fish Oil 1 po bid Chun Mcfarland 06/01/2010 - 1000mg Lulu Reynolds,[facility] 06/06/2012 Capsules Pravastatin Sodium 1 po qhs 90tabs Chun Mcfarland 05/22/2009 - Id#[id number] Lulu Reynolds,[facility] 06/01/2010 20mg Tablets Lamisil po every day 30tabs 110.1 Chun Mcfarland 05/22/2009 - 250mg Lulu Reynolds,[facility] 11/25/2009 Tablets Atenolol Take 1 Tablet 180tabs I10 Chun Mcfarland 05/22/2009 - 25mg Twice A Day Lulu Reynolds,[facility] 05/24/2016 Tablets Skelaxin 1 po tid prn 30tabs 724.9 Chun Mcfarland 03/30/2009 - 800mg Lulu Reynolds,[facility] 05/22/2009 Tablets Lyrica 1 po bid 14caps 724.3 Chun Mcfarland 04/14/2008 - 50mg Lulu Reynolds,FACP 05/19/2008 Capsules Clarinex 2 po qd prn 90tabs Aman Saavedra 04/14/2008 - 5mg Lulu Segal 04/17/2014 Tablets Nexium Take 1 Capsule 90caps Chun Mcfarland 12/05/2007 - 20mg Daily Lulu Reynolds,[facility] 04/22/2015 Capsules Lisinopril Take One-Half 45tabs Chun Mcfarland 12/05/2007 - 20mg (1/2) Tablet Daily Lulu Reynolds,[facility] 06/06/2012 Tablets Avodart take 1 capsule 30caps N40.0 Aman Saavedra 12/05/2007 - 0.5mg daily Lulu Segal 07/27/2018 Capsules Avodart Take 1 Capsule 90caps 600.90 Chun Mcfarland 12/05/2007 - 0.5mg Daily Lulu Reynolds,FACP 06/06/2012 Capsules Avodart 1 po qd 90caps 600.90 Chun Mcfarland 12/05/2007 - 0.5mg Id#[id number] Lulu Reynolds,[facility] 08/12/2011 Capsules Aspir-81 1 PO qd Chun Mcfarland 12/05/2007 - 81mg Lulu Reynolds,[facility] 05/22/[address] Atenolol 1 po qd 90tabs Chun Mcfarland 12/05/2007 - 25mg Lulu Reynolds,[facility] 10/20/2008 Tablets Nifedipine ER 1 po qam 90tabs Aman Saavedra 12/05/2007 - 30mg Id#[id number] Lulu Segal 05/06/2012 Tablets ER 24HR Sotalol HCL bid po 30tabs Chun Mcfarland 06/07/2007 - 120mg Lulu Reynolds,[facility] 05/22/2009 Tablets Simvastatin 1 po qhs 90tabs Chun Mcfarland 06/07/2007 - 40mg Lulu Reynolds,[facility] 03/30/2009 Tablets Warfarin Sodium take 1 tablet 90taclarence Mcfarland 06/07/2007 - 5mg every evening or Lulu Reynolds,[facility] 10/29/2010 Tablets as directed Id#[id number] Colestid po bid 180tabs Aman Saavedra 06/07/2007 - 1gm Id#[id number] Lulu Segal 05/06/2012 Tablets Oxycodone-Acetamino 1-2 tabs by mouth Unknown - phen every 4-6 hours as 03/14/2017 5-325mg needed for pain Tablets Lorazepam 1 by mouth daily F51.8 Unknown - 1mg 03/14/2017 Tablets Nifedipine ER Take 1 Tablet 90tabs Chun Mcfarland - Osmotic Release Every Morning Lulu Reynolds,[facility] 04/28/2016 30mg Tablets ER 24HR Clarinex 2 by mouth every Unknown - 5mg day prn 07/03/2015 Tablets Micronized Take 1 Tablet 180tabs Chun Mcfarland - Colestipol HCL Twice A Day Lulu Reynolds,[facility] 01/12/2016 1gm Tablets Fluorouracil apply twice day [...] CPT Code Status Date Vaccine Lot # [id number] Given 04/03/2018 Influenza Virus Vaccine, Quadrivalent, Split, Preservative Free 96288 Given 03/15/2017 Influenza Virus 3Yrs & Over Q2035 Given 03/30/2016 Afluria Vaccine 46731 Given 06/10/2015 Pneumococcal Conjugate Vaccine 13 Valent For [id number] Intramuscular Use Q2035 Given 03/28/2015 Afluria Vaccine Q2037 Given 04/01/2014 Fluvirin Im 3Yrs And Older Q2035 Given 05/01/2013 Afluria Vaccine 54606 Given 04/11/2013 Zoster (Zostavax) Q2037 Given 05/01/2012 Fluvirin Im 3Yrs And Older [id number] Q2037 Given 05/01/2012 Fluvirin Im 3Yrs And Older 98035 Given 11/17/2011 Tdap - Tetanus/Diptheria/Acellular Pertussis [id number] Q2038 Given 04/11/2011 Fluzone Vaccine [id number] 29373 Given 04/26/2010 Influenza Virus 3Yrs & Over [id number] 24681 Given 05/22/2009 Influenza Virus Vaccine, Pandemic Formulation [id number] 89981 Given 04/14/2008 Influenza Virus 3Yrs & Over 29925 Given 04/14/2008 Influenza Virus 3Yrs & Over [id number] 84943 Given 04/25/2007 Pneumonia Vaccine [id number] Refused 08/12/2009 Influenza Virus 3Yrs & Over [...] Result H/L Range Note Basic Metabolic 04/26/2018 [facility] Sodium 139 mmol/L N 135- 145 Panel [address] [place] [address] [phone] Chloride 105 mmol/L N 101-111 Co2 Carbon Dioxide 27 mmol/L N 22-32 Glucose 96 mg/dL N 70-100 Blood Urea Nitrogen 26 mg/dL High 6-24 Creatinine 1.31 mg/dL High 0.67-1.17 BUN/Creatinine Ratio 19.8 N 8-20 Calcium 9.4 mg/dL N 8.6-10.3 Egfr Non- 52.4 >60 Egfr 63.4 >60 1 Potassium 5.2 mmol/L High 3.5-5.0 Anion Gap 7 mmol/L N 2-11 Laboratory test 04/26/2018 [facility] Magnesium 2.1 mg/dL N 1.9-2.7 finding [address] [place] [address] [phone] Laboratory test 04/23/2018 [facility] Magnesium <pending> finding [address] [place] [address] [phone] Comp Metabolic 12/18/2017 [facility] Sodium 141 mmol/L N 135- 145 Panel [address] [place] [address] [phone] Potassium 4.5 mmol/L N 3.5-5.0 Chloride 108 [...] Egfr 73.8 >60 2 Lipid Profile 12/18/2017 [facility] Triglycerides 114 mg/dL 3 (Trig/Chol/HDL) [address] [place] [address] [phone] Cholesterol 154 mg/dL 4 HDL Cholesterol 37.0 mg/dL 5 LDL Cholesterol 94 mg/dL 6 Laboratory test 12/15/2017 [facility] Ast (Sgot) <pending> finding [address] [place] [address] [phone] CBC Auto Diff 12/13/2017 [facility] White Blood 7.0 10^3/uL N 3.5-10. [address] Count 8 [place] [address] [phone] Red Blood Count 4.90 10^6/uL N 4.00-5.40 [...] % 0.1 Iron & Iron Binding 12/13/2017 [facility] Iron 73 g/dL N 50- 212 [address] [place] [address] [phone] Unsaturated Iron Binding 276 g/dL Total Iron Binding Capacity 349 g/dL N 250-450 Transferrin 249 mg/dL N 203-362 % Iron Saturation 21 % N 15-55 Laboratory test 06/20/2017 [facility] Occult Blood - neg x 3 finding Stool Retic Count 05/30/2017 [facility] Retic Count 1.0 % N 0.5-1.5 [address] [place] [address] [phone] Corrected Retic Count 0.9 % N 0.5-1.5 Maturation Factor Retic 1.5 Retic Index 0.60 Mean Retic Volume 119.4 Immature Retic Fraction 0.50 RBC Retic Count 4.74 10^6/uL N 4.6-6.2 Hematocrit for Retic CNT 39 % Low 42-52 Iron & Iron Binding 05/30/2017 [facility] Iron 48 g/dL Low 50-212 [address] [place] [address] [phone] Unsaturated Iron Binding 386 g/dL Total Iron Binding Capacity 434 g/dL N 250-450 % Iron Saturation 11 % Low 15-55 Laboratory test 05/30/2017 [facility] Vitamin B12 447 pg/mL N 180-914 [address] [place] [address] [phone] Erythropoietin 34.4 mIU/mL Abnormal 2.6 - 18.5 8 Basic Metabolic Panel 04/24/2017 [facility] Sodium 137 mmol/L N 133-145 [address] [place] [address] [phone] Potassium 4.8 mmol/L N 3.5-5.0 Chloride 106 mmol/L N 101-111 Co2 Carbon Dioxide 26 mmol/L N 22-32 Anion Gap 5 mmol/L N 2-11 Glucose 88 mg/dL N 70-100 Blood Urea Nitrogen 31 mg/dL High 6-24 Creatinine 1.59 mg/dL High 0.67-1.17 BUN/Creatinine Ratio 19.5 N 8-20 Calcium 9.0 mg/dL N 8.6-10.3 Egfr Non- 42.0 N >60 Egfr 54.0 N >60 9 Lipid Profile 04/24/2017 [facility] Triglycerides 112 mg/dL N 10 (Trig/Chol/HDL) [address] [place] [address] [phone] Cholesterol 146 mg/dL N 11 HDL Cholesterol 35.6 mg/dL N 12 LDL Cholesterol 88 mg/dL N 13 CBC Auto Diff 04/24/2017 [facility] White Blood 4.9 10^3/uL N 3.5-10.[address] [place] [address] [phone] Red Blood Count 4.69 10^6/uL N 4.0-5.4 [...] Cells % 0 N Laboratory test 04/24/2017 [facility] Creatine 58 U/L N 10- 223 [address] Kinase(CK) [place] [address] [phone] Lipid Profile 06/02/2016 [facility] Triglycerides 92 mg/dL N 15 (Trig/Chol/HDL) [address] [place] [address] [phone] Cholesterol 228 mg/dL N 16 HDL Cholesterol 51.0 mg/dL N 17 LDL Cholesterol 159 mg/dL N 18 Laboratory test 06/02/2016 [facility] Creatine 31 U/L N 10- [address] Kinase(CK) [place] [address] [phone] Comp Metabolic 06/02/2016 [facility] Sodium 139 N 133-[address] mmol/[place] [address] [phone] Potassium 5.3 mmol/L High 3.5-5.0 Chloride 107 [...] 52.2 N >60 19 Laboratory test 05/19/2016 [facility] Potassium 5.1 mmol/L High 3.5-5.0 [address] [place] [address] [phone] Basic Metabolic 05/17/2016 [facility] Sodium 133 mmol/L N 133- [address] [place] [address] [phone] Potassium 5.8 mmol/L High 3.5-5.0 Chloride 101 mmol/L N 101-111 Co2 Carbon Dioxide 26 mmol/L N 22-32 Anion Gap 6 mmol/L N 2-11 Glucose 70 mg/dL N 70-100 Blood Urea Nitrogen 21 mg/dL N 6-24 Creatinine 1.12 mg/dL N 0.67-1.17 BUN/Creatinine Ratio 18.8 N 8-20 Calcium 8.5 mg/dL Low 8.6-10.3 Egfr Non- 63.1 N >60 Egfr 81.1 N >60 21 Laboratory test 05/17/2016 [facility] Lyme Disease Negative N Negative [address] [place] [address] [phone] Basic Metabolic 12/08/2015 [facility] Sodium 138 mmol/L N 133- 145 Panel [address] [place] [address] [phone] Potassium 5.1 mmol/L High 3.5-5.0 Chloride 104 mmol/L N 101-111 Co2 Carbon Dioxide 29 mmol/L N 22-32 Anion Gap 5 mmol/L N 2-11 Glucose 83 mg/dL N 70-100 Blood Urea Nitrogen 17 mg/dL N 6-24 Creatinine 1.04 mg/dL N 0.67-1.17 BUN/Creatinine Ratio 16.3 N 8-20 Calcium 9.2 mg/dL N 8.6-10.3 Egfr Non- 68.7 N >60 Egfr 88.4 N >60 23 Laboratory test 12/08/2015 [facility] Magnesium 2.1 mg/dL N 1.9-2.7 finding [address] [place] [address] [phone] Laboratory test 10/14/2015 [facility] Surgical SEE RESULT 24 finding [address] [facility] [place] [address] [phone] Lipid Profile 06/11/2015 [facility] Triglycerides 133 mg/dL N 25 (Trig/Chol/HDL) [address] [place] [address] [phone] Cholesterol 185 mg/dL N 26 HDL Cholesterol 39.0 mg/dL N 27 LDL Cholesterol 119 mg/dL N 28 Comp Metabolic Panel 06/11/2015 [facility] Sodium 140 mmol/L N 133-145 [address] [place] [address] [phone] Potassium 4.5 mmol/L N 3.5-5.0 Chloride 106 [...] mg/dL N 4.4-7.6 finding Lipid Profile 06/03/2014 [facility] Triglycerides 99 mg/dL N 30, 31 (Trig/Chol/HDL) [address] [place] [address] [phone] Cholesterol 186 mg/dL N 32 HDL Cholesterol 41.5 mg/dL N 33 LDL Cholesterol 125 mg/dL N 34 Laboratory test 04/23/2014 [facility] B Type 446 pg/mL N [address] [place] [address] Peptide [phone] Basic Metabolic 04/23/2014 [facility] Sodium 139 mmol/L N 133- [address] [place] [address] [phone] Potassium 4.5 mmol/L N 3.7-5.6 Chloride 107 mmol/L N 101-111 Co2 Carbon Dioxide 27 mmol/L N 22-32 Anion Gap 5 mmol/L N 2-11 Glucose 71 mg/dL N 70-100 Blood Urea Nitrogen 18 mg/dL N 6-24 Creatinine 1.13 mg/dL N 0.67-1.17 BUN/Creatinine Ratio 15.9 N 8-20 Calcium 9.0 mg/dL N 8.6-10.3 Egfr Non- 62.8 N >60 Egfr 80.7 N >60 36 Laboratory test 04/13/2014 [facility] Troponin I 0.01 ng/mL N <0.03 [address] [place] [address] [phone] Laboratory test 04/13/2014 [facility] B Type 439 pg/mL N [address] [place] [address] Peptide [phone] Comp Metabolic 04/13/2014 [facility] Sodium 136 mmol/L N 133- [address] [place] [address] [phone] Potassium 4.1 mmol/L N 3.7-5.6 Chloride 106 [...] 86.9 N >60 39 Laboratory test 04/13/2014 [facility] Magnesium 2.0 mg/dL N 1.9-2.7 [address] [place] [address] [phone] Creatine Kinase 55 U/L N 10-223 CKMB 1.9 ng/mL N 0.6-6.3 Troponin I 0.01 ng/mL N <0.03 41 CBC Auto 04/13/2014 [facility] White Blood 12.3 10^3/uL High 4.8-10.[address] [place] [address] [phone] Red Blood Count 5.04 10^6/uL N 4.0-5.4 [...] Blood Cells % 0 N Inr/Protime 04/13/2014 [facility] Inr 1.24 High 0.85-1.06 [address] [place] [address] [phone] Basic Metabolic 01/07/2014 [facility] Sodium 138 mmol/L N 133- 145 Panel [address] [place] [address] [phone] Potassium 4.5 mmol/L N 3.7-5.6 Chloride 106 mmol/L N 101-111 Co2 Carbon Dioxide 26 mmol/L N 22-32 Anion Gap 6 mmol/L N 2-11 Glucose 87 mg/dL N 70-100 Blood Urea Nitrogen 22 mg/dL N 6-24 Creatinine 1.01 mg/dL N 0.67-1.17 BUN/Creatinine Ratio 21.8 High 8-20 Calcium 9.2 mg/dL N 8.6-10.3 Egfr Non- 71.4 N >60 Egfr 91.9 N >60 42 Laboratory test 05/23/2013 [facility] PSA Screening 0.248 ng/mL 0-4.000 43 finding [address] [place], [place] [address] [phone] Comp Metabolic 05/23/2013 [facility] Sodium 139 mmol/L 133- [address] [place] [address] [phone] Potassium 5.2 mmol/L High 3.5-5.0 Chloride 105 [...] Egfr 93.2 >60 44 Lipid Profile 05/23/2013 [facility] Triglycerides 133 mg/dL 40-200 (Trig/Chol/HDL) [address] [place] [address] [phone] Cholesterol 179 mg/dL Less than 200 HDL Cholesterol 43 mg/dL 40-60 45 Cholesterol/HDL Ratio 4.2 Average 1-4.44 LDL Cholesterol 109.4 High Less Than 100 46 Surgical 11/13/2012 [facility] S RUN DATE: [address] 11/15/ <[place] [address] NOTE> [phone] Lipid Panel - 02/07/2012 [facility] CPK (Creatine 83 U/L 0- [address] Kinase) [place] [address] [phone] Comp Metabolic 02/07/2012 [facility] Sodium 137 mmol/L 135- [address] [place] [address] [phone] Potassium 4.7 mmol/L 3.5-5.0 Chloride 106 mmol/L [...] 93.4 > 60 50 Lipid Profile 02/07/2012 [facility] Triglyceride 134 mg/dL 40 -200 (Trig/Chol/HDL) [address] [place] [address] [phone] Cholesterol 193 mg/dL Less Than 200 51 High Density Lipoprotein 35 mg/dL Low 40-60 52 Cholesterol/HDL Ratio 5.51 AVERAGE High 1-4.97 Low Density Lipoprotein 131 mg/dL High Less Than 100 53 Lipid Panel - 05/13/2011 [facility] CPK (Creatine 74 U/L 0- [address] Kinase) [place] [address] [phone] CMP Panel 05/13/2011 [facility] Sodium 139 mmol/L 135-[address] [place] [address] [phone] Potassium 4.5 mmol/L 3.5-5.0 Chloride 107 mmol/L [...] 93.7 > 60 56 Lipid Panel 05/13/2011 [facility] Triglyceride 102 mg/dL 40- [address] [place] [address] [phone] Cholesterol 182 mg/dL Less Than 200 57 High Density Lipoprotein 41 mg/dL 40-60 58 Cholesterol/HDL Ratio 4.44 AVERAGE 1-4.97 Low Density Lipoprotein 121 mg/dL High Less Than 100 59 Comp Metabolic Panel 02/10/2011 [facility] Sodium 140 mmol/L 135-[address] [place] [address] [phone] Potassium 4.8 mmol/L 3.5-5.0 Chloride 108 mmol/L [...] 83.9 > 60 62 Laboratory test 02/10/2011 [facility] C Reactive 0.6 mg/dL High Less Than finding [address] Protein 0.5 [place] [address] [phone] CBC Auto Diff 02/10/2011 [facility] White Blood 5.4 CUMM 4.8- 10.[address] [place] [address] [phone] Red Cell Count 4.61 CUMM 4.6-6.2 Hemoglobin [...] Basophils 0 0-0.2 63 Laboratory test 02/10/2011 [facility] Erythrocyte Sed 23 MM/HR 0-[address] [place] [address] [phone] Laboratory test 12/15/2010 [facility] Cyclic <15.6 U () [address] [place] [address] Igg [phone] Erythrocyte Sed Rate 31 MM/HR 0-40 Laboratory test 12/07/2010 [facility] LDL Direct 108 mg/dL High Less Than 65 [address] [place] [address] [phone] Cholesterol 174 mg/dL Less Than 200 66 Comp Metabolic Panel 12/07/2010 [facility] Sodium 141 mmol/L 135-[address] [place] [address] [phone] Potassium 4.0 mmol/L 3.5-5.0 Chloride 108 mmol/L [...] 69.2 > 60 69 Laboratory test 12/07/2010 [facility] CPK (Creatine 85 U/L 0- [address] Kinase) [place] [address] [phone] Rheumatoid Factor 28.6 IU/mL High Less Than 20 TSH 1.38 MIU/ML 0.34-5.60 HDL Cholesterol 12/07/2010 [facility] High Density 44 mg/dL 40-[address] [place] [address] [phone] Cholesterol/HDL Ratio 3.95 AVERAGE 1-4.97 Laboratory test 12/01/2010 [facility] Lyme Disease Negative Negative [address] [place] [address] [phone] Erythrocyte Sed Rate 11 MM/HR 0-40 C Reactive Protein 0.5 mg/dL Less Than 0.5 Protime W/ Inr 10/12/2010 [facility] Prothrombin Time 34.1 Inr 2.8 Protime W/ Inr 09/23/2010 Unknown Lab Prothrombin Time 26.6 Inr 2.59 Protime W/ Inr 06/08/2010 [facility] Prothrombin Time 35.2 Inr 2.9 Lipid Panel - 06/02/2010 [facility] CPK (Creatine 89 U/L 0- [address] Kinase) [place] [address] [phone] Comp Metabolic 06/02/2010 [facility] Sodium 140 135-[address] mmol/[place] [address] [phone] Potassium 5.1 mmol/L High 3.5-5.0 Chloride 105 [...] 84.2 > 60 75 Lipid Profile 06/02/2010 [facility] Triglyceride 178 mg/dL 40 -200 (Trig/Chol/HDL) [address] [place] [address] [phone] Cholesterol 207 mg/dL High Less Than 200 76 High Density Lipoprotein 39 mg/dL Low 40-60 77 Cholesterol/HDL Ratio 5.31 AVERAGE High 1-4.97 Low Density Lipoprotein 132 mg/dL High Less Than 100 78 Protime W/ Inr 05/24/2010 [facility] Prothrombin Time 21.6 Inr 1.8 Protime W/ Inr 04/26/2010 [facility] Prothrombin Time 31.3 Inr 2.6 Protime W/ Inr 03/29/2010 [facility] Prothrombin Time 26.7 Inr 2.2 Protime W/ Inr 02/23/2010 [facility] Prothrombin Time 23.9 Inr 2.0 Protime W/ Inr 01/19/2010 [facility] Prothrombin Time 26.1 Inr 2.2 Laboratory test 11/26/2009 [facility] TSH 1.77 MIU/ML 0.34- 5.[address] [place] [address] [phone] CBC With 11/26/2009 [facility] White Blood 5.5 CUMM 4.8-10.8 Electronic Diff [address] [place] [address] [phone] Red Cell Count 5.09 CUMM 4.6-6.2 Hemoglobin [...] Basophils 0 0-0.2 79 Lipid Profile 11/26/2009 [facility] Triglyceride 182 mg/dL 40 -200 (Trig/Chol/HDL) [address] [place] [address] [phone] Cholesterol 227 mg/dL High Less Than 200 80 High Density Lipoprotein 38 mg/dL Low 40-60 81 Cholesterol/HDL Ratio 5.97 AVERAGE High 1-4.97 Low Density Lipoprotein 153 mg/dL High Less Than 100 82 Comp Metabolic Panel 11/26/2009 [facility] Sodium 139 mmol/L 135-145 [address] [place] [address] [phone] Potassium 4.6 mmol/L 3.5-5.0 Chloride 106 mmol/L [...] > 60 87 Lipid Panel - 11/26/2009 [facility] CPK (Creatine 100 U/L 0- [address] Kinase) [place] [address] [phone] Protime W/ Inr 11/23/2009 [facility] Prothrombin Time 27.5 Inr 2.3 Urinalysis 11/23/2009 [facility] Ua Color YELLOW Yellow [address] [place] [address] [phone] Appearance-Urine CLEAR Clear Specific [place]-Ur 1.025 1.010-1.030 Esterase-Urine NEGATIVE Negative Nitrite NEGATIVE Negative Ochnltpnbahq-Ob-VSD NEGATIVE Negative Protein-Urine NEGATIVE Negative PH-Urine 5.0 5-9 Blood-Urine NEGATIVE Negative Ketones-Urine NEGATIVE Negative Bilirubin-Ur NEGATIVE Negative Glucose-Urine NEGATIVE Negative Urine Culture & 11/23/2009 [facility] Urine Culture NG [address] [place] [address] [phone] Protime W/ Inr 10/28/2009 [facility] Prothrombin Time 36.4 Inr 3.0 Protime W/ Inr 05/22/2009 [employer] [facility] Prothrombin Time 35.3 Inr 2.9 Comp Metabolic Panel 05/12/2009 [facility] Sodium 138 mmol/L 135-145 [address] [place] [address] [phone] Potassium 4.6 mmol/L 3.5-5.0 Chloride 106 mmol/L [...] 94.2 > 60 93 Lipid Profile 05/12/2009 [facility] Triglyceride 119 mg/dL 40 -200 (Trig/Chol/HDL) [address] [place] [address] [phone] Cholesterol 209 mg/dL High Less Than 200 94 High Density Lipoprotein 41 mg/dL 40-60 95 Cholesterol/HDL Ratio 5.10 AVERAGE High 1-4.97 Low Density Lipoprotein 144 mg/dL High Less Than 100 96 Laboratory test 05/12/2009 [facility] CPK (Creatine 87 U/L 0- [address] Kinase) [place] [address] [phone] PSA Screening 0.41 NG/ML 0-4 97 Protime W/ Inr 05/11/2009 [facility] [employer] [facility] Prothrombin Time 21.2 Inr 1.8 Protime W/ Inr 04/22/2009 [facility] [employer] [facility] Prothrombin Time 42.5 Inr 3.5 Urinalysis 04/08/2009 [facility] Ua Color YELLOW [address] [place] [address] [phone] Appearance-Urine CLEAR Specific [place]-Ur 1.011 1.010-1.030 Esterase-Urine NEGATIVE Negative Nitrite NEGATIVE Negative Ebyiqdqbxcge-Td-FHU NEGATIVE Negative Protein-Urine NEGATIVE Negative PH-Urine 7.5 5-9 Blood-Urine NEGATIVE Negative Ketones-Urine NEGATIVE Negative Bilirubin-Ur NEGATIVE Negative Glucose-Urine NEGATIVE Negative Protime W/ Inr 03/23/2009 [facility] [employer] [facility] Prothrombin Time 28.0 Inr 2.3 Protime W/ Inr 02/17/2009 [facility] [employer] [facility] Prothrombin Time 33.0 Inr 2.7 Laboratory test finding 02/04/2009 [facility] Ast (Sgot) 24 U/L 12-[address] [place] [address] [phone] CPK (Creatine Kinase) 109 U/L 0-200 Protime W/ Inr 12/15/2008 [facility] [employer] [facility] Prothrombin Time 24.6 Inr 2.1 Liver Function 10/22/2008 [facility] Total Protein 6.6 GM/DL 6.2-8.[address] [place] [address] [phone] Albumin 3.7 GM/DL 3.2-5.2 Globulin 2.9 GM/DL 2-4 Albumin/Globulin Ratio 1.3 1-3 Bilirubin Total 1.0 mg/dL 0.4-1.5 Bilirubin Direct 0.2 mg/dL 0.1-0.5 Indirect Bilirubin 0.8 mg/dL High 0.1-0.75 Alkaline Phosphatase 69 U/L 39-117 Alt (SGPT) 18 U/L 17-63 Ast (Sgot) 23 U/L 12-42 Lipid Profile 10/22/2008 [facility] Triglyceride 130 mg/dL 40 -200 (Trig/Chol/HDL) [address] [place] [address] [phone] Cholesterol 180 mg/dL Less Than 200 98 High Density Lipoprotein 40 mg/dL 40-60 99 Cholesterol/HDL Ratio 4.50 AVERAGE 1-4.97 Low Density Lipoprotein 114 mg/dL High Less Than 100 100 CBC With 10/22/2008 [facility] White Blood 6.6 CUMM 4.8-10.8 Electronic Diff [address] [place] [address] [phone] Red Cell Count 4.87 CUMM 4.6-6.2 Hemoglobin [...] 0 0-0.2 101 Basic Metabolic Panel 10/22/2008 [facility] Sodium 138 mmol/L 135-145 [address] [place] [address] [phone] Potassium 4.8 mmol/L 3.5-5.0 Chloride 106 mmol/L 101-111 Co2 (Carbon Dioxide) 27.0 mmol/L 22-32 Anion Gap 5.0 mmol/L 2-11 102 Glucose 97 mg/dL 70-100 103 BUN 13 mg/dL 6-24 Creatinine 1.20 mg/dL 0.50-1.40 One Over Creatinine 0.80 BUN/Creatinine Ratio 10.8 8-20 Calcium 9.0 mg/dL 8.1-9.9 104 Protime W/ Inr 10/15/2008 [facility] [employer] [facility] Prothrombin Time 39.8 Inr 3.3 Protime Stat 06/03/2008 [employer] [facility] Prothrombin Time 28.2 Laboratory test 06/03/2008 [facility] [employer] [facility] Inr 2.3 finding Protime Stat 04/29/2008 [facility] [employer] [facility] Prothrombin Time 26.9 Laboratory test 04/29/2008 [facility] [employer] [facility] Inr 2.2 finding Protime Stat 04/14/2008 [facility] [employer] [facility] Prothrombin Time 38.5 Laboratory test 04/14/2008 [facility] [employer] [facility] Inr 3.0 finding Protime Stat 03/13/2008 Prothrombin Time 24.9 Laboratory test 03/13/2008 Inr 2.1 finding Protime Stat 02/13/2008 [facility] [employer] [facility] Prothrombin Time 20.1 Laboratory test 02/13/2008 [facility] [employer] [facility] Inr 1.7 finding Lipid Profile 02/11/2008 [facility] Triglyceride 116 mg/dL 40 -200 105 (Trig/Chol/HDL) [address] [place] [address] [phone] Cholesterol 208 mg/dL High Less Than 200 106 High Density Lipoprotein 42 mg/dL 40-60 107 Cholesterol/HDL Ratio 4.95 AVERAGE 1-4.97 Low Density Lipoprotein 143 mg/dL High Less Than 100 108 Comp Metabolic Panel 02/11/2008 [facility] Sodium 138 mmol/L 135-145 [address] [place] [address] [phone] Potassium 4.5 mmol/L 3.5-5.0 Chloride 110 mmol/L [...] Panel - [facility] 02/11/2008 [facility] CPK (Creatine 89 U/L 0-[address] Kinase) [place] [address] [phone] Protime Stat 01/16/2008 [facility] [employer] [facility] Prothrombin Time 24.3 Laboratory test 01/16/2008 [facility] [employer] [facility] Inr 2.0 finding Protime Stat 12/05/2007 [facility] [employer] [facility] Prothrombin Time 26.9 Laboratory test 12/05/2007 [facility] [employer] [facility] Inr 2.2 finding Laboratory test 11/21/2007 [facility] [employer] [facility] Inr 1.8 finding Protime Stat 11/21/2007 [facility] [employer] [facility] Prothrombin Time 21.8 Protime Stat 10/31/2007 [facility] [employer] [facility] Prothrombin Time 36.0 Laboratory test 10/31/2007 [facility] [employer] [facility] Inr 3.0 finding Protime W/ Inr 07/24/2007 [facility] [employer] [facility] Prothrombin Time 24.3 Inr 2.18 Protime 06/18/2007 [facility] Inr 1.[address] [place] [address] [phone] Protime 16.7 High 10.9-13.3 Protime 05/23/2007 [facility] Inr 3.[address] [place] [address] [phone] Protime 21.6 High 10.9-13.1 Protime 04/06/2007 [facility] Inr 1.[address] [place] [address] [phone] Protime 13.7 High 10.9-13.1 Laboratory test 04/06/2007 [facility] PTT (Aptt) 23.3 20.4- 29.5 [address] [place] [address] [phone] Basic Metabolic 04/06/2007 [facility] One Over 0.[address] [place] [address] [phone] Anion Gap 6.0 mmol/L 2-11 115 BUN 16 mg/dL 6-24 Calcium 9.0 mg/dL 8.7-10.2 Chloride 108 mmol/L 101-111 Co2 (Carbon Dioxide) 27.0 mmol/L 22-32 Glucose 108 mg/dL High 70-105 Potassium 4.4 mmol/L 3.5-5.0 Sodium 141 mmol/L 135-145 BUN/Creatinine Ratio 10.7 8-20 Creatinine 1.5 mg/dL High 0.5-1.4 CBC With 04/06/2007 [facility] White Blood 6.4 CUMM 4.8-10.8 Electronic Diff [address] [place] [address] [phone] Abs Basophils 0 0-0.2 Abs Eosinophils 0.2 [...] 15 % 10.5-15 CBC W/ Electronic 03/09/2007 [facility] White Blood 6.1 CUMM 4.8-10.[address] [place] [address] [phone] Abs Basophils 0 0-0.2 Abs Eosinophils 0.5 [...] WDTH 15 % 10.5-15 Laboratory test 03/09/2007 [facility] Erythrocyte Sed 20 MM/HR 0-[address] [place] [address] [phone] Comp Metabolic 03/09/2007 [facility] One Over 0.[address] [place] [address] [phone] Anion Gap 8.0 mmol/L 2-11 118 Albumin/Globulin [...] Creatinine 1.3 mg/dL 0.5-1.4 Lipid Profile 03/09/2007 [facility] Cholesterol/HDL 4.44 1- 4.97 (Trig/Chol/HDL) [address] [place] [address] [phone] Cholesterol 160 mg/dL Less Than 200 119 Triglyceride 118 mg/dL 40-200 High Density Lipoprotein 36 mg/dL Low 40-60 120 Low Density Lipoprotein 100 mg/dL Less Than 100 121 Laboratory test 03/09/2007 [facility] PSA Screening 0.800 0.01-4.0 [address] NG/[place] [address] [phone] 1 Because ethnic data is not always [...] Deficient Range <145 8 Test Performed by: [facility] [address] [place] [address] 9 Because ethnic data is not always [...] dialysis) 20 Copy Result to: CHIN REYNOLDS ([id number]) 21 Because ethnic data is not always [...] submitted in 7-14 days. Test Performed by: [place] [address] Data Coordinator: Sahil Merchant II, M.D., Ph.D. 23 Because [...] [address]: Zeina España MD Acct: [id number] Unit: [id number] AGE: 80 Location: [facility] Re10/14/15 SEX: M Status: REG REF SPEC: [id number] GILBERTO: 10/14/15-[address] [facility] [address]: Zeina España MD REQ: [id number] RECD: 10/14/151107 STATUS: SOUT _ ORDERED: LEVEL I FINAL DIAGNOSIS Pacemaker generator, removal: Foreign body (pacemaker generator) (Gross diagnosis). CLINICAL HISTORY Third degree heart block PRE-OPERATIVE DIAGNOSIS Sinus node dysfunction GROSS DESCRIPTION The specimen is received fresh with no source identified, and consists of a 4.8 x 4.4 x 0.7 cm silver metallic medical certification specialist. The following inscription is identified: FluGen Versa VEDR01 DDDR SN [id number] [facility]. Per established hospital medical staff protocol, no tissue is submitted. Gross only. Signed (signature on file) Chantell Bui MD 1333 END OF REPORT * ML=Testing performed at Main Lab DEPARTMENT OF PATHOLOGY, [address] [place] [address] James Oliveira M.D. Director [facility] # [id number] 25 Desirable <150 Borderline high 150-199 High [...] 0.03 ng/mL Not supportive of diagnosis of [place] 0.03 - 0.50 ng/mL Indeterminate: suggest serial studies if clinically indicated. Greater than 0.5 ng/mL Consistent with diagnosis of [place] 38 >100 to <200 pg/mL: likely compensated [...] 0.03 ng/mL Not supportive of diagnosis of [place] 0.03 - 0.50 ng/mL Indeterminate: suggest serial studies if clinically indicated. Greater than 0.5 ng/mL Consistent with diagnosis of [place] 42 Because ethnic data is not always [...] levels of PSA measured using the Krishna Angle DXI Hybritech immunoassay should not be interpreted [...] than 189 mg/dL 47 RUN DATE: 11/15/12 [facility] LAB LIVE PAGE 1 RUN TIME: 1314 [address] [place], [place] [address] Specimen Inquiry Name: CAROLYN ROSA María : [address]: Kole Hollingsworth MD Acct: [id number] Unit: [id number] AGE: 77 Location: ENDO Re11/13/12 SEX: M Status: REG REF SPEC: [id number] GILBERTO: 11/13/12- [facility] DR: Kole Hollingsworth MD REQ: [id number] RECD: 11/13/12-9666 STATUS: VERENICE CAMACHO DR: Chun Reynolds MD [...] performed at Main Lab DEPARTMENT OF PATHOLOGY, [address] [place] [address] James Oliveira M.D. Director [facility] Permit #[id number] Anion gap measurement may be of [...] has been shown to interfere with the [place] method for measuring total bilirubin. Samples from [...] has been shown to interfere with the [place] method for measuring total bilirubin. Samples from [...] VALUE -- <20.0 (Negative) Test Performed by: [facility] Dpt of Lab Med and Pathology [address] [place] [address] Data Coordinator: Joseph Anders III, M.D. 65 LDL INTERPRETATION: [...] submitted in 7-14 days. Test Performed by: [facility] of [facility] Med and Pathology [address] [place] [address] Data Coordinator: Joseph Anders III, M.D. 72 Anion gap measurement may be of limited value in the presence of any alkalosis, especially in a combined acid base disorder. . 73 Note change in reference range as of 02/21/08. The change was based on recommendations from the [place] [employer]. 74 A metabolite of Naproxen, O-desmethylnaproxen, has been shown to interfere with the [place] method for measuring total bilirubin. Samples from [...] change was based on recommendations from the [place] [employer]. 85 Please note change in [...] change was based on recommendations from the [place] [employer]. 91 Please note change in reference range effective 07 . 92 A metabolite of Naproxen, O-desmethylnaproxen, has been shown to interfere with the [place] method for measuring total bilirubin. Samples from [...] SERUM LEVELS OF PSA MEASURED USING THE WebTV ACCESS HYBRITECH IMMUNOASSAY SHOULD NOT BE INTERPRETED [...] change was based on recommendations from the [place] [employer]. 104 Please note change in [...] LEVELS OF PSA MEASURED USING THE KRISHNA [place] ACCESS HYBRITECH IMMUNOASSAY SHOULD NOT BE INTERPRETED ABSOLUTE EVIDENCE OF THE PRESENCE OR ABSENCE OF DISEASE. THE PSA VALUE SHOULD BE USED IN CONJUNCTION WITH OTHER PERTINENT CLINICAL DIAGNOSTIC PROCEDURES. Procedures Date Code Description Status 10/19/2018 06512 ECHO Transthoracic, Real-Time 2D With Doppler And Color Completed Flow 05/22/2018 39024 EKG Tracing & Interpretation Completed 05/03/2018 23525 Pace Maker Eval W/Iterative Adjustment Single Lead Completed 05/03/2018 36864 Pace Maker Eval W/Iterative Adjustment Single Lead Completed 12/15/2017 94576 EKG Tracing & Interpretation Completed 11/08/2017 19807 Pace Maker Eval W/Iterative Adjustment Single Lead Completed 11/08/2017 62639 Pace Maker Eval W/Iterative Adjustment Single Lead Completed 11/08/2017 60526 Inject/Drain Joint/Bursa Major W/O US Completed 10/31/2017 12339 Inject/Drain Joint/Bursa Major W/O US Completed 10/24/2017 35304 Inject/Drain Joint/Bursa Major W/O US Completed 05/30/2017 27887 EKG Tracing & Interpretation Completed 05/23/2017 46900 Pace Maker Eval W/Iterative Adjustment Single Lead Completed 05/23/2017 46181 Pace Maker Eval W/Iterative Adjustment Single Lead Completed 11/23/2016 06142 Pace Maker Eval W/Iterative Adjustment Single Lead Completed 11/03/2016 33181 EKG Tracing & Interpretation Completed 05/06/2016 09045 Pace Maker Eval W/Iterative Adjustment Single Lead Completed 04/22/2016 96559 ECHO Transthoracic, Real-Time 2D With Doppler And Color Completed Flow 04/21/2016 99064 EKG Tracing & Interpretation Completed 04/21/201622301 Inject/Drain Joint/Bursa Major W/O US Completed 01/26/2016 39099 Remove Impacted Cerumen Completed 11/16/2015 16313 Interrogation Device Eval In Person W/ Completed Analysis,Single,Dual,Mul 11/12/201595872 Inject/Drain Joint/Bursa Major W/O US Completed 10/14/2015 32913 Removal With Replacement Dual Lead System Pulse Completed Generator 10/08/2015 94794 Interrogation Device Eval In Person W/ Completed Analysis,Single,Dual,Mul 04/27/2015 30521 EKG Tracing & Interpretation Completed 04/23/2015 12124 Interrogation Device Eval In Person W/ Completed Analysis,Single,Dual,Mul 11/03/2014 44729 EKG Tracing & Interpretation Completed 10/29/2014 04499 Interrogation Device Eval In Person W/ Completed Analysis,Single,Dual,Mul 05/06/2014 69934 Pace Maker Eval W/Iterative Adjustment Single Lead Completed 04/29/2014 11536 Stress Test Completed 04/29/2014 79953 Myocardial Perfusion Imaging Tomographic (Spect) Completed Multiple Studies 04/21/2014 37936 Myocardial Perfusion Imaging Tomographic (Spect) Completed Multiple Studies 04/18/2014 53501 EKG Tracing & Interpretation Completed 11/04/2013 92795 EKG Tracing & Interpretation Completed 10/29/2013 31714 Pace Maker Eval W/Iterative Adjment Dual Lead Completed 04/30/2013 20205 Pace Maker Eval W/Iterative Adjment Dual Lead Completed 02/12/2013 18124 EKG Tracing & Interpretation Completed 11/13/2012 27105776 Colonoscopy Completed 10/29/2012 70699 Pace Maker Eval W/Iterative Adjment Dual Lead Completed 06/15/2012 05702 Pace Maker Eval W/Iterative Adjment Dual Lead Completed 04/26/2010 40062 Admin Of Inj Completed 03/18/2002 23057361 Colonoscopy Completed Encounters Type Date Location Provider Dx Diagnosis Office Visit 05/22/2018 [facility] Zeina España, I48.2 Chronic atrial 11:45a Of [employer] M.D. fibrillation Z95.0 Presence of cardiac pacemaker I44.2 Atrioventricular block, complete I47.2 Ventricular tachycardia E78.00 Pure hypercholesterolemia, unspecified Office Visit 12/15/2017 2:40p [facility] Zeina España I48.2 Chronic atrial Of [employer] M.D. 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 cardiac pacemaker I47.2 Ventricular tachycardia I50.32 Chronic diastolic (congestive) heart failure I10 Essential (primary) hypertension E78.00 Pure hypercholesterolemia, unspecified I44.2 Atrioventricular block, complete I48.2 Chronic atrial fibrillation I48.92 Unspecified atrial flutter Office Visit 03/15/2017 2:00p [facility] Internal Jerry Rogers, M25.571 Pain in right Medicine - SEATING UPHOLSTERER ankle and joints [address] of right foot Office Visit 02/02/2017 9:10a [facility] Internal Chun Mcfarland M54.5 Low back pain Medicine - [place], [address] M.D.,FACP Office Visit 12/06/2016 9:50a [facility] Internal Chun Mcfarland I10 Essential Medicine Brett (primary) M.Bruna,FAC hypertension E78.00 Pure hypercholesterolemia, unspecified I48.2 Chronic atrial fibrillation Office Visit 11/03/2016 1:30p [facility] Zeina España, I50.32 Chronic diastolic Cardiology Of M.DPhillip (congestive) heart [facility] failure I48.2 Chronic atrial fibrillation I10 Essential (primary) hypertension Z95.0 Presence of cardiac pacemaker I47.2 Ventricular tachycardia M19.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 general adult medical exam w abnormal findings I10 Essential (primary) hypertension I50.32 Chronic diastolic (congestive) heart failure I48.2 Chronic atrial fibrillation E78.00 Pure hypercholesterolemia, unspecified R73.01 Impaired fasting glucose K21.9 Gastro-esophageal reflux disease without esophagitis Office Visit 06/07/2016 9:15a [facility] Nasreen Cruz, I10 Essential (primary) Of [facility] [place] hypertension I50.32 Chronic diastolic (congestive) heart failure E78.5 Hyperlipidemia, unspecified Office Visit 05/24/2016 9:00a [facility] Zeian España, I10 Essential (primary) Of [facility] M.D. hypertension M19.019 Primary osteoarthritis, unspecified shoulder I50.32 Chronic diastolic (congestive) heart failure I48.2 Chronic atrial fibrillation Office Visit 04/21/2016 2:00p [facility] Zeina España, Z95.0 Presence of Of [facility] M.Bruna cardiac pacemaker I50.32 Chronic diastolic (congestive) heart failure I48.2 Chronic atrial fibrillation I44.2 Atrioventricular block, complete I47.2 Ventricular tachycardia I10 Essential (primary) hypertension Office Visit 04/21/2016 8:45a [facility] Stubbs, M75.41 Impingement Services Of syndrome of right [place] shoulder M25.511 Pain in right shoulder M19.011 Primary osteoarthritis, 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, left shoulder Office Visit 01/15/2016 2:00p [facility] Internal Keaton Nico, M79.675 Pain in left Medicine SUPERVIS[employer] RO[employer] ADMINISTRATOR toe(s) Office Visit 12/08/2015 1:40p [facility] Internal Chun Mcfarland G47.62 Sleep related Medicine Brett leg cramps Lulu,[facility] Office Visit 11/12/2015 8:30a [facility] Stubbs, S46.012A Strain of Services Of [place] ADAM musc/tend the rotator cuff of left shoulder, init M19.012 Primary osteoarthritis, left shoulder M75.42 Impingement syndrome of left shoulder Office Visit 10/13/2015 8:30a [facility] Vanesa Mcfarland M75.82 Other shoulder Medicine Lulu Reynolds,FACP lesions, left shoulder M25.572 Pain in left ankle and joints of left foot F41.9 Anxiety disorder, unspecified Office Visit 10/08/2015 2:00p [facility] Zeina España, Z95.0 Presence of Of Terrie Lawson cardiac pacemaker I47.2 Ventricular tachycardia I48.2 Chronic atrial fibrillation Z01.810 Encounter for preprocedural cardiovascular examination Office Visit 06/10/2015 9:10a [facility] Vanesa Mcfarland Z00.01 Encounter for Medicine Emma Reynolds M.D.,FACP general adult [address] medical exam w abnormal findings I10 Essential (primary) hypertension M75.82 Other shoulder lesions, left shoulder M25.572 Pain in left ankle and joints of left foot N52.01 Erectile dysfunction due to arterial insufficiency Z23 Encounter for immunization Office Visit 04/27/2015 9:00a [facility] CRISTIN Mackenzie Z95.0 Presence of Of [facility] cardiac pacemaker I10 Essential (primary) hypertension R60.0 Localized edema I49.5 Sick sinus syndrome I48.2 Chronic atrial fibrillation Office Visit 02/25/2015 4:00p [facility] Internal Arya Ramos, SUPERVIS[employer] RO[employer] ADMINISTRATOR 729.5 Pain In Limb Medicine - [address] Office Visit 12/03/2014 8:30a [facility] Internal Chun Mcfarland 719.46 Pain Joint Medicine - [place] Lulu Reynolds,FACP [address] 726.19 Shoulder Disorders Other Spec 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 In Situ [employer] Postsurgical 401.1 Hypertension Benign 272.0 Hypercholesterolemia Pure 427.31 Atrial Fibrillation 782.3 Edema Office Visit 05/06/2014 8:00a [facility] Zeina España, 401.1 Hypertension Of [employer] M.D. Benign V45.01 Cardiac Pacemaker In Situ Postsurgical 427.31 Atrial Fibrillation 428.0 Congestive Heart Failure Unspecified Office Visit 04/18/2014 1:30p [facility] Zeina España 427.31 Atrial Cardiology Of M.D. 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 Fibrillation [employer] 428.0 Congestive Heart Failure Unspecified 427.1 Paroxysmal Ventricular Tachycardia V45.01 Cardiac Pacemaker In Situ Postsurgical Office Visit 02/12/2013 9:00a [facility] Zeina España 427.32 Atrial Flutter Of [employer] M.D. 427.1 Paroxysmal Ventricular Tachycardia 427.81 Sinoatrial Node Dysfunction 427.89 Cardiac Dysrhythmia Other Office Visit 10/30/2012 10:00a [facility] Internal Amy De La Vega, 307.49 Sleep Disorder Medicine N.P. Other Office Visit 10/16/2012 3:00p [facility] Internal Amy De La Vega, 307.49 Sleep Disorder Medicine N.P. Other Office Visit 06/06/2012 10:30a [facility] Internal Chun Mcfarland V70.0 Examination Medicine Lulu Reynolds,[facility] General Medical Routine AT Health Care Facility 790.21 Impaired Fasting Glucose 427.31 Atrial Fibrillation 272.2 Hyperlipidemia Mixed V76.51 Special Screening For Malignant Neoplasms Colon Office Visit 12/06/2011 1:45p [facility] Internal Amy De La Vega, 380.4 Impacted Medicine N.P. Cerumen 428.0 Congestive Heart Failure Unspecified Office Visit 11/17/2011 9:30a [facility] Internal Chun Mcfarland 428.0 Congestive Heart Medicine Lulu Reynolds,[facility] Failure Unspecified 427.31 Atrial Fibrillation V06.1 Ucegvqedit-Hnglcpy-Obxlqsbu Combined (DTaP) Office Visit 05/19/2011 9:10a DO Not Use Terrie Mcfarland V70.0 Examination AT Jean Claude Reynolds M.D.,[facility] General Medical Routine AT Health Care Facility 427.31 Atrial Fibrillation 790.21 Impaired Fasting Glucose 401.1 Hypertension Benign 272.0 Hypercholesterolemia Pure Office Visit 02/08/2011 1:40p Rheumatology Anshul Palacios, 724.5 Backache Unspec Services Of Terrie Laswon 719.46 Pain Joint Lower Leg Office Visit 01/06/2011 11:00a DO Not Use Terrie Mcfarland 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.,[place] Arthritis 466.0 Bronchitis Acute 272.2 Hyperlipidemia Mixed Office Visit 12/07/2010 2:40p DO Not Use Terrie Mcfarland 716.99 Arthropathy AT Jean Claude Reynolds M.D.,[facility] Unspec Multiple Sites 780.79 Malaise And Fatigue Other 728.88 Rhabdomyolysis 272.2 Hyperlipidemia Mixed Office Visit 10/14/2010 8:40a DO Not Use Manager Flight Operations AT Chun Reynolds, 724.2 Lumbago Jean Claude Lawson,FACP 790.21 Impaired Fasting Glucose 401.1 Hypertension Benign 427.32 Atrial Flutter Office Visit 06/01/2010 1:00p DO Not Use Manager Flight Operations Chun Mcfarland 427.32 Atrial Flutter AT Jean Claude Reynolds M.D.,FACP V58.61 Anticoagulants Supervisor Loading (Current) Use Encounter 272.2 Hyperlipidemia Mixed 401.1 Hypertension Benign 790.21 Impaired Fasting Glucose Office Visit 11/25/2009 9:00a DO Not Use Manager Flight Operations Chun Mcfarland 599.71 Gross Hematuria AT Jean Claude Reynolds M.D.,FACP 427.32 Atrial Flutter 272.2 Hyperlipidemia Mixed 780.79 Malaise And Fatigue Other Office Visit 05/22/2009 9:00a DO Not Use Manager Flight Operations Chun Mcfarland 427.32 Atrial Flutter AT Jean Claude Reynolds M.D.,FACP V58.61 Anticoagulants Supervisor Loading (Current) Use Encounter 724.9 Back Disorders Other Unspec 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 110.1 Dermatophytosis Nail 272.2 Hyperlipidemia Mixed V04.81 Need For Prophylactic Vaccination & Inoculation/Influenza Office Visit 03/30/2009 9:40a DO Not Use Manager Flight Operations Chun Mcfarland 724.9 Back Disorders Other AT Jean Claude Reynolds M.D.,FACP Unspec Office Visit 10/20/2008 10:00a DO Not Use Manager Flight Operations Beena Phillip,P 272.2 Hyperlipidemia Mixed AT [facility] A 401.1 Hypertension Benign V58.61 Anticoagulants Jail (Current) Use Encounter 427.32 Atrial Flutter Office Visit 04/14/2008 8:30a DO Not Use Manager Flight Operations AT Chun Reynolds, 724.3 Sciatica Jean Claude Lawson,FACP V58.61 Anticoagulants Jail (Current) Use Encounter 427.32 Atrial Flutter V04.81 Need For Prophylactic Vaccination & Inoculation/Influenza v04.81 Need For Prophylactic Vaccination & Inoculation/Influenza Office Visit 02/13/2008 11:20a DO Not Use Manager Flight Operations Chun Mcfarland 427.32 Atrial Flutter AT Jean Claude Reynolds M.D.,FACP V58.61 Anticoagulants Supervisor Loading (Current) Use Encounter 401.1 Hypertension Benign 272.2 Hyperlipidemia Mixed Office Visit 12/05/2007 DO Not Use [facility] Chun Mcfarland V58.61 Anticoagulants Long 8:40a AT Jean Claude Reynolds M.D.,[facility] Term (Current) Use Encounter 427.32 Atrial Flutter 401.1 Hypertension Benign 724.9 Back Disorders Other Unspec 453.40 Acute Venous Embolism & Thrombosis,Unspec Deep Vessels Lower 272.2 Hyperlipidemia Mixed 600.90 Hyperplasia Of Prostate,Unspecified W/O Urinary Obstruction Office Visit 06/07/2007 1:40p DO Not Use Terrie Mcfarland 427.32 Atrial Flutter AT Jean Claude Reynolds M.D.,[facility] V58.61 Anticoagulants Supervisor Loading (Current) Use Encounter 401.1 Hypertension Benign Plan of Treatment Future Appointment(s):10/29/2018 3:20 pm - Zeina España M.D. at [facility]10/29/2018 2:30 pm - [facility] Pacer Schedule at [facility]05/22/2018 - Zeina España M.D.I48.2 Chronic atrial fibrillationFollow up: OV on return from [place]ations:Continue DctlsltI14.0 Presence of cardiac pacemakerComments:Your pacemaker is working well.Follow up:PO on return from [facility] , prior to OVI44.2 Atrioventricular block, cvjexcvpL34.2 Ventricular tachycardiaComments:2 secondsRecommendations:Continu Carvediolol and KlyaesuQ54.00 Pure hypercholesterolemia, unspecifiedComments:Well controlled for primary prevention.Recommendations:Continue Colestipol.
[2018-10-25] MEDS ORDERED: Cyclobenzaprine TAB* 10 MG PO ONE (01:58)
[2018-10-25] MEDS ORDERED: Cyclobenzaprine TAB* 10 MG ONE (02:27)
[2018-10-25 02:31] VITALS: BP 127/71
[2018-10-25] MEDS ORDERED: Lidocaine Patch REMOVE* 1 NOTE MISC PATCH OFF SCH (13:30)
== END 2018-10-25 02:31 | disposition home or self-care (01) ==
LOC: ED 01:07
DX: M54.5 Low back pain (principal); I48.91 Unspecified atrial fibrillation; Z95.0 Presence of cardiac pacemaker
CPT/HCPCS: 96372; 99282; A9270-GY; J2270

== ENCOUNTER 2019-05-16 16:44 | Emergency (ER) | payer MEDICARE ==
--- OUTSIDE RECORDS SUMMARY | 2019-05-16 17:14 | XMS REPORT | Continuity of Care Document ---
:1935 External Reference #:[id number] Author Name Zeina España M.D. (transmitted by agent of provider Brigid Torres) Address [address] [place] [address] Care Team Providers Name Role Phone Lamni Sheets MD - Urology Care Team Information Almond Grinder [phone] Zeina España MD - Cardiovascular Care Team Information Almond Grinder [phone] Disease Demetris Ornelas MD - Orthopaedic Care Team Information Almond Grinder [phone] Surgery Anshul Palacios MD - Rheumatology Care Team Information Almond Grinder Law Stubbs MD - Orthopaedic Care Team Information Almond Grinder [phone] Surgery Aman Segal III, MD - Internal Care Team Information Almond Grinder Medicine Girish Geller MD - Otolaryngology Care Team Information Almond Grinder Problems Active Problems Provider Date Paroxysmal ventricular tachycardia eZina España M.D. Onset: 11/04/2013 Chronic atrial fibrillation Zeina España M.D. Onset: 10/08/2015 Complete atrioventricular block Zeina España M.D. Onset: 04/21/2016 Chronic diastolic heart failure Zeina España M.D. Onset: 04/21/2016 Anticoagulant therapy Chun West M.D.,FACP Onset: 06/07/2007 Benign essential hypertension Chun West M.D.,FACP Onset: 06/07/2007 Mixed hyperlipidemia Chun West M.D.,FACP Onset: 12/05/2007 Impaired fasting glycaemia Chun West M.D.,FACP Onset: 06/01/2010 Low back pain Chun West M.D.,FACP Onset: 10/14/2010 Cardiac pacemaker in situ Zeina España M.D. Onset: 11/04/2013 Note: not AICD Localized, primary osteoarthritis of the Law Stubbs MD Onset: 04/21/2016 shoulder region Aneurysm of thoracic aorta Zeina España M.D. Onset: 10/29/2018 Social History Type Date Description Comments Sex Unknown Cigarette Use Quit 45 Years Ago ETOH Use 12/06/2016 Denies alcohol use Recreational Drug Use Denies Drug Use Tobacco Use Start: Unknown End: Patient is a former smoked for 15 Unknown smoker years, quit in 1962 Smoking Status Reviewed: 05/03/19 Patient is a former smoked for 15 smoker years, quit in 1962 Exercise Type/Frequency Does not exercise Allergies, Adverse Reactions, Alerts Active Allergies Reaction Severity Comments Date Kenalog BP elevated for 2 months 12/06/2016 Inactive Allergies NKDA 06/07/2007 Medications Active Medications SIG Qnty Indications Ordering Date Provider Dutasteride Take 1 Capsule By 30caps N40.0 Chun Mcfarland 07/27/2018 0.5mg Mouth Every Day Lulu West,FACP Capsules Viagra take one tablet 14tabs N52.01 Aman Saavedra 06/08/2018 100mg Tablets at least 30 Lulu Segal mintues prior to intercourse. Lorazepam one tab by mouth 30tabs F51.8 Aman Saavedra 03/14/2017 0.5mg Tablets every day as Lulu Segal needed Atorvastatin Calcium take 1 tablet by 90tabs Aman Saavedra 12/06/2016 mouth at bedtime Lulu Segal 10mg Tablets Carvedilol 1 by mouth twice 180tabs I10 Zeina España, 05/24/2016 6.25mg a day M.DPhillip Tablets Aldactone take one tab 4 16tabs Zeina España, 05/10/2016 25mg Tablets days a week M.D. Colestipol HCL take 1 tablet 180tabs Zeina España, 01/12/2016 1gm twice a day M.DPhillip Tablets Esomeprazole take 1 capsule 90caps Chun Mcfarland 04/22/2015 Magnesium daily Lulu West,FACP 20mg Capsules DR Furosemide take 2 tablets on 320tabs Aman Saavedra 05/03/2014 20mg Tablets monday, Lulu Segal monday, monday and monday and take 3 tablets on monday, , monday Pradaxa take 1 capsule 180caps I48.92 Aman EPhillip 10/14/2010 150mg Capsules twice a day Lulu Segal Sotalol HCL take one-half 90tabs Zeina España, 05/22/2009 80mg (1/2) tablet M.DPhillip Tablets twice a day Coq-10 1 by mouth every 90caps Unknown 100mg Capsules day Medications Administered in Office Medication SIG Qnty [...] 0.1 MG Vincent Royal M.D., 04/29/2014 Injection MORIAH LAM Technetium TC 99M Vincent Royal M.D., 04/29/2014 Tetrofosmin, Per Unit Dose Up MORIAH LAM To 40 Millicuries Injection Technetium TC 99M Zeina España M.D. 04/29/2014 Tetrofosmin, Per Unit Dose Up To 40 Millicuries Injection Immunizations CPT Code Status Date Vaccine Lot # [id number] Given 04/03/2018 Influenza Virus Vaccine, Quadrivalent, Split, Preservative Free 80600 Given 03/15/2017 Influenza Virus 3Yrs & Over Q2035 Given 03/30/2016 Afluria Vaccine 27206 Given 06/10/2015 Pneumococcal Conjugate Vaccine 13 Valent For [id number] Intramuscular Use Q2035 Given 03/28/2015 Afluria Vaccine Q2037 Given 04/01/2014 Fluvirin Im 3Yrs And Older Q2035 Given 05/01/2013 Afluria Vaccine 44890 Given 04/11/2013 Zoster (Zostavax) Q2037 Given 05/01/2012 Fluvirin Im 3Yrs And Older [id number] Q2037 Given 05/01/2012 Fluvirin Im 3Yrs And Older 73911 Given 11/17/2011 Tdap - Tetanus/Diptheria/Acellular Pertussis [id number] Q2038 Given 04/11/2011 Fluzone Vaccine [id number] 94495 Given 04/26/2010 Influenza Virus 3Yrs & Over [id number] 19628 Given 05/22/2009 Influenza Virus Vaccine, Pandemic Formulation [id number] 93369 Given 04/14/2008 Influenza Virus 3Yrs & Over 41987 Given 04/14/2008 Influenza Virus 3Yrs & Over [id number] 23829 Given 04/25/2007 Pneumonia Vaccine 49393 Refused 08/12/2009 Influenza Virus 3Yrs & Over Vital Signs Date Vital Result Comment 05/03/2019 2:55pm Height 70 inches 5'10" Weight 210.25 lb with shoes Heart Rate 80 /min BP Systolic Sitting 122 mmHg Rue reg cuff BP Diastolic Sitting 80 mmHg Rue reg cuff BP Systolic Standing 112 mmHg Rue reg cuff BP Diastolic Standing 78 mmHg Rue reg cuff Respiratory Rate 13 /min BMI (Body Mass Index) 30.2 kg/m2 Ejection Fraction 55-60% ECHO 10/19/2018 01/24/2019 2:08pm Height 70 inches 5'10" Weight 215.00 lb Heart Rate 82 /min BP Systolic 121 mmHg BP Diastolic 70 mmHg O2 % BldC Oximetry 99 % BMI (Body Mass Index) 30.8 kg/m2 Results Test Acquired Date Facility Test Result H/L Range Note Lipid Panel - 05/03/2019 [facility] Creatine <pending> [facility] [address] Kinase(CK) [place] [address] [phone] Procedures Date Code Description Status 05/03/2019 16422 Pace Maker Eval W/Iterative Adjustment Single Lead Completed 05/03/2019 02038 EKG Tracing & Interpretation Completed 11/13/2012 08350036 Colonoscopy Completed 03/18/2002 65586790 Colonoscopy Completed Medical Devices Description No Information Available Encounters Type Date Location Provider Dx Diagnosis Office Visit 05/03/2019 [facility] Zeina España, I48.21 Permanent atrial 2:40p Of Terrie Lawson fibrillation Z95.0 Presence of cardiac pacemaker I44.2 Atrioventricular block, complete I47.2 Ventricular tachycardia I71.2 Thoracic aortic aneurysm, without rupture Office Visit 01/24/2019 [facility] Internal Aman Saavedra M19.011 Primary 2:00p Servando Segal M.D. osteoarthritis, right Ccmob shoulder M19.012 Primary osteoarthritis, left shoulder R43.8 Other disturbances of smell and taste M25.511 Pain in right shoulder M25.512 Pain in left shoulder Assessments Date Code Description Provider 05/03/2019 I48.21 Permanent atrial fibrillation Zeina España M.D. 05/03/2019 I48.21 Permanent atrial fibrillation [facility] Pacer Schedule 05/03/2019 Z95.0 Presence of cardiac pacemaker Zeina España M.D. 05/03/2019 Z95.0 Presence of cardiac pacemaker [facility] Pacer Schedule 05/03/2019 I44.2 Atrioventricular block, complete Zeina España M.D. 05/03/2019 I44.2 Atrioventricular block, complete [facility] Pacer Schedule 05/03/2019 I47.2 Ventricular tachycardia Zeina España M.D. 05/03/2019 I71.2 Thoracic aortic aneurysm, without rupture Zeina España M.D. 01/24/2019 M19.011 Primary osteoarthritis, right shoulder Aman Segal M.D. 01/24/2019 M19.012 Primary osteoarthritis, left shoulder Aman Segal M.D. 01/24/2019 R43.8 Other disturbances of smell and taste Aman Segal M.D. 01/24/2019 M25.511 Pain in right shoulder Aman Segal M.D. 01/24/2019 M25.512 Pain in left shoulder Aman Segal M.D. Plan of Treatment Future Appointment(s):11/14/2019 1:30 pm - Zeina España M.D. at [facility]11/14/2019 1:00 pm - [facility] Pacer Schedule at [facility]10/28/2019 9:20 am - Aman Segal M.D. at [facility] Internal Medicine-Gfuosmaeb39/01/2019 - Zeina España M.D.I48.21 Permanent atrial fibrillationComments:On Pradaxa for stroke prevention.Z95.0 Presence of cardiac pacemakerComments:Your pacemaker is working well.I44.2 Atrioventricular block, jmmnnzwoG32.2 Ventricular tachycardiaComments:Rare and brief.Continue SotalolFollow up:Needs ECG today, on Sotalol. 6 month ICD and OV (unless in FLA ).I71.2 Thoracic aortic aneurysm, without ruptureComments:Mild on echolGood BP control will help keep this stable. Functional Status Description No Information Available Mental Status Description No Information Available Referrals Refer to Reason for Referral Status Appt Date Girish Geller MD pt reports decreased smell and taste Received Partial ? since having an NG tube in September 01 [place] [address] [phone]
--- OUTSIDE RECORDS SUMMARY | 2019-05-16 17:14 | XMS REPORT | Continuity of Care Document ---
:1935 External Reference #:[id number] Author Name Fercho Andersen M.D. Address [address] [place] [address] Care Team Providers Name Role Phone Zeina España M.D. - Cardiovascular Care Team Information Infection Control Manager [phone] Disease Laurie Min - Pediatric Care Team Information Infection Control Manager Unavailable Dermatology Moahn Lindo MD [facility] - Care Team Information Infection Control Manager [phone] Cardiovascular Disease Aman Segal M.D. - Internal Care Team Information Infection Control Manager Medicine Problems Active Problems Provider Date Gastroesophageal reflux disease Onset: Basal cell carcinoma of skin Onset: Seasonal allergy Onset: Irregular heart beat Onset: Essential hypertension Onset: Chronic back pain Onset: Anxiety Onset: Pure hypercholesterolemia Onset: Nuclear senile cataract Fercho Andersen M.D. Onset: 03/24/2015 Benign neoplasm of eyelid including canthus Fercho Andersen M.D. Onset: Vitreous degeneration Fercho Andersen M.D. Onset: 03/24/2015 Combined form of senile cataract Fercho Andersen M.D. Onset: 03/24/2016 Senile ectropion Fercho Andersen M.D. Onset: 03/29/2018 Social History Type Date Description Comments Sex Unknown ETOH Use Denies alcohol use Tobacco Use Start: Unknown End: Unknown Patient is a former smoker Recreational Drug Use Denies Drug Use Smoking Status Reviewed: 03/26/19 Patient is a former smoker Allergies, Adverse Reactions, Alerts Active Allergies Reaction Severity Comments Date Cortisone 03/27/2017 Medications Active Medications SIG Qnty Indications Ordering Provider Date Sotalol HCL RamirezCesar rubio ABIEL 80mg Tablets Pradaxa Steven West M.D. 150mg Capsules Micronized Colestipol HCL Steven West M.D. 1gm Tablets Furosemide Steven West M.D. 20mg Tablets Nexium 20mg Steven West M.D. Capsules Porfirio Martinez M.D. 0.5mg Capsules Lorazepam Arya RamosP 0.5mg Tablets Carvedilol Unknown 6.25mg Tablets Spironolactone Unknown 25mg Tablets Atorvastatin Calcium Unknown 10mg Tablets Co Q 10 Unknown 100mg Capsules Immunizations Description No Information Available Vital Signs Description No Information Available Results Description No Information Available Procedures Date Code Description Status 11/23/2018 23205 Est Patient Intermediate Exam Completed Medical Devices Description No Information Available Encounters Description No Information Available Assessments Date Code Description Provider 03/26/2019 H25.813 Combined forms of age-related cataract, Fercho Andersen M.D. bilateral 03/26/2019 H43.813 Vitreous degeneration, bilateral Fercoh Andersen M.D. 11/23/2018 H25.813 Combined forms of age-related cataract, Fercho Andersen M.D. bilateral 11/23/2018 H43.813 Vitreous degeneration, bilateral Fercho Andesren M.D. Plan of Treatment 03/26/2019 - Fercho Andersen M.D.H25.813 Combined forms of age-related cataract , bilateralComments:Smoking can increase the risk of developing or worsening any eye related disease, as well as affect your overall health. If you are a smoker, we strongly recommend that you quit.If you are not a smoker, we strongly recommend that you do not start. You have been diagnosed with cataracts. If you are happy with your vision as it is now, then we will see you at your next scheduled appointment. If you feel like your vision is getting worse before your scheduled appointment, please call Kylie at .Follow up:6 Month Follow Up Diagnostic Refraction You can expect to have your eyes dilated at your next visit. If Dr. Andersen orders any additional testing , it may require extra time. We recommend that you bring sunglasses, as dilation drops often make you light sensitive until they wear off. We always recommendyou bring someone to drive you home if you are uncomfortable driving with your eyes dilated. If you have any questions before your next visit, feel free to call our office at .V45.114 Vitreous degeneration, bilateralComments:You have a Posterior Vitreous Detachment. If you have any changes in your floaters or flashing lights, please contact this office. Functional Status Description No Information Available Mental Status Description No Information Available Referrals Description No Information Available
--- NOTE | 2019-05-16 20:14 | ED ---
Dizziness - HPI Summary HPI Summary: 83 year old M brought in by EMS to [facility] complains of dizziness described as room spinning and balance issues which started earlier today. Hx vertigo. States that he was able to do some chores today and after lying down, he still felt dizzy so he decided to come to the ED. Now has mild headache. Had nausea earlier but resolved now. Patient denies fever, chills, erythema of eyes, muffled hearing, sore throat, chest pain, shortness of breath, cough, abdominal pain, vomiting, dysuria, hematuria, myalgia, edema, rash. The patient rates the pain 0/10 in severity. Symptoms aggravated by nothing. Symptoms alleviated by nothing. No recent sinus infection or URI. - History Of Current Complaint Chief Complaint: EDDizziness Stated Complaint: DIZZINESS PER EMS Time Seen by Provider: 05/16/19 20:02 Hx Obtained From: Patient Onset/Duration: Still Present Timing: Constant Severity Currently: None Aggravating Factor(s): Nothing Alleviating Factor(s): Nothing Associated Signs And Symptoms: Positive: Negative - fever, chills, erythema of eyes, muffled hearing, sore throat, chest pain, shortness of breath, cough, abdominal pain, vomiting, dysuria, hematuria, myalgia, edema, rash., Other: - nausea, headache - Allergies/Home Medications Allergies/Adverse Reactions: Allergies Allergy/AdvReac Type Severity Reaction Status Date / Time No Known Allergies Allergy Verified 05/16/19 16:53 Home Medications: Home Medications Aspirin EC TAB* [Ecotrin EC Low Dose 81 MG*] 81 mg PO DAILY 05/16/19 [History Confirmed 05/16/19] Atorvastatin* [Lipitor*] 10 mg PO DAILY 05/16/19 [History Confirmed 05/16/19] Carvedilol TAB* [Coreg TAB*] 6.25 mg PO BID 05/16/19 [History Confirmed 05/16/19 ] Colestipol (NF) 1 gm PO BID WITH MEALS 05/16/19 [History Confirmed 05/16/19] Dutasteride (NF) [Avodart (NF)] 0.5 mg PO DAILY WITH MEAL 05/16/19 [History Confirmed 05/16/19] Esomeprazole(NF) [NEXium(NF)] 20 mg PO DAILY 05/16/19 [History Confirmed ] Fluticasone NASAL SPRAY 50MCG* [Flonase NASAL SPRAY 50MCG*] 2 spray BOTH NARES DAILY 05/16/19 [History Confirmed 05/16/19] Furosemide TAB* [Lasix TAB*] 40 mg PO DAILY 05/16/19 [History Confirmed 05/16/19 ] LORazepam TAB(*) [Ativan 0.5 MG TAB (*)] 0.5 mg PO DAILY PRN MDD 0.5 mg [History Confirmed 05/16/19] Spironolactone TAB* [Aldactone TAB*] 25 mg PO .FOUR DAYS A WEEK 05/16/19 [ History Confirmed 05/16/19] Ubidecarenone/Vitamin E [Co Q-10 50 mg Softgel] 2 cap PO DAILY 05/16/19 [ History Confirmed 05/16/19] PMH/Surg Hx/FS Hx/Imm Hx Cardiovascular History: Reports: Hx Atrial Fibrillation, Hx Congestive Heart Failure, Hx Hypercholesterolemia, Hx Hypertension, Hx Pacemaker/ICD Neurological History: Reports: Other Neuro Impairments/Disorders - vertigo - Surgical History Surgery Procedure, Year, and Place: pacemaker x3 Infectious Disease History: No Infectious Disease History: Denies: Traveled Outside the [place] in Last 30 Days - Family History Known Family History: Positive: Cardiac Disease - Social History Alcohol Use: None Substance Use Type: Reports: None Smoking Status (MU): Never Smoked Tobacco Review of Systems Negative: Fever, Chills Negative: Erythema ENT: Negative - muffled hearing Negative: Sore Throat Negative: Chest Pain Negative: Shortness Of Breath, Cough Positive: Nausea. Negative: Abdominal Pain, Vomiting Negative: dysuria, hematuria Negative: Myalgia, Edema Negative: Rash Neurological: Other - Dizziness Positive: Headache All Other Systems Reviewed And Are Negative: Yes Physical Exam - Summary Physical Exam Summary: Constitutional: Well-developed, Well-nourished, Alert. (-) Distressed Skin: Warm, Dry HENT: Normocephalic; Atraumatic; cerumen impaction on left side Eyes: Conjunctiva normal Neck: Musculoskeletal ROM normal neck. (-) JVD, (-) Stridor, (-) Tracheal deviation Cardio: Rhythm regular, rate normal, Heart sounds normal; Intact distal pulses; The pedal pulses are 2+ and symmetric. Radial pulses are 2+ and symmetric. (-) Murmur Pulmonary/Chest wall: Effort normal. (-) Respiratory distress, (-) Wheezes, (-) Rales Abd: Soft, (-) tenderness, (-) Distension, (-) Guarding, (-) Rebound Musculoskeletal: (-) Edema Lymph: (-) Cervical adenopathy Neuro: Alert, Oriented x3 Psych: Mood and affect Normal GCS: 15 Triage Information Reviewed: Yes Vital Signs On Initial Exam: Initial Vitals Temp Pulse Resp BP Pulse Ox 97.6 F 82 16 154/91 98 05/16/19 16:50 05/16/19 16:50 05/16/19 16:50 05/16/19 16:50 05/16/19 16:50 Vital Signs Reviewed: Yes Procedures - Sedation Patient Received Moderate/Deep Sedation with Procedure: No Diagnostics - Vital Signs Vital Signs Temp Pulse Resp BP Pulse Ox 05/16/19 18:18 98.3 F 75 16 125/70 97 05/16/19 16:50 97.6 F 82 16 154/91 98 - Laboratory Result Diagrams: 05/16/19 20:31 05/16/19 20:31 Lab Statement: Any lab studies that have been ordered have been reviewed, and results considered in the medical decision making process. - EKG 1701 Cardiac Rate: NL - 77 BPM Summary of EKG Findings: 100% paced Re-Evaluation - Re-Evaluation First Eval Change: Improved - STEADY GAIT Dizzy Course/Dx - Course Course Of Treatment: 83 year old M complains of dizziness described as room spinning and balance issues which started earlier today. Hx vertigo. Physical exam findings: cerumen impaction on left side. The patient is currently free of vertigo spontaneously. His Anderson-Hallpike test and supine roll test are both negative. He has a left cerumen impaction. Romberg is negative, his gait is steady and he walked entire length of the hallway in the emergency department. Consider TIA versus peripheral vertigo. He does not endorse vertigo worse with movement. Bloodwork results with no significant abnormalities except for RDW 17 , absolute neuts 7.8, absolute lymphs 0.7, potassium 5.1, creatinine 1.35, glucose 115, lactic acid 3.0. EKG shows 100% paced at 77 BPM. The patient has been asymptomatic in the emergency department, he has tolerated ambulation very well with an extremely steady gait. We did irrigate his left ear for cerumen removal. CT and CTA are both negative, the patient is not ballotable for MRI due to his pacemaker. I did entertain the slight possibility that this was a TIA presentation, but given his cerumen impaction felt this to be more likely a peripheral presentation. - Diagnoses Provider Diagnoses: Vertigo, Cerumen impaction Discharge ED - Sign-Out/Discharge Documenting (check all that apply): Patient Departure - Discharge Plan Condition: Good Disposition: HOME Patient Education Materials: Vertigo (ED), Cerumen Impaction (ED) Referrals: Aman Segal MD [Primary Care Provider] - 2 Days Additional Instructions: YOU came in for vertigo tonight that resolved prior to arriving in the emergency room. He did very well in the emergency room and your imaging and blood work tonight was negative. I believe that the cause of your vertigo is most likely your earwax blocking the left ear, although there is an ever so slight chance that this was a presentation of mini stroke. We discussed the need to return to the emergency room immediately if symptoms return or if you develop new symptoms.. - Billing Disposition and Condition Condition: GOOD Disposition: Home - Attestation Statements Document Initiated by Lynsey: Yes Documenting Scribe: Nay Arthur Provider For Whom Lynsey is Documenting (Include Credential): Akhil Kong MD Scribe Attestation: I, Nay Arthur, scribed for Akhil Kong MD on 05/16/19 at 2226. Scribe Documentation Reviewed: Yes Provider Attestation: The documentation as recorded by the Nay clifton accurately reflects the service I personally performed and the decisions made by me, Akhil Kong MD Status of Scribe Document: Viewed
[2019-05-16 20:37] LABS: ABS Basophils 0.1 10^3/ul (0-0.2); ABS Eosinophils 0.1 10^3/ul (0-0.6); ABS Lymphocytes 0.7 10^3/ul (1.0-4.8); ABS Monocytes 0.8 10^3/ul (0-0.8); ABS Neutrophils 7.8 10^3/ul (1.5-7.7); Eosinophil % 1.5 %; Hematocrit 48 % (42-52); Lymphocyte % 7.2 %; Mean Corpuscular HGB Conc 34 g/dL (31-36); Mean Corpuscular Hemoglobin 30 pg (27-31); Mean Corpuscular Volume 90 fL (80-94); Platelet Count 182 10^3/uL (150-450); Red Cell Distribution Width 17 % (10-15); White Blood Count 9.6 10^3/uL (3.5-10.8)
[2019-05-16 20:54] LABS: Albumin 4.4 g/dL (3.2-5.2); Albumin/Globulin Ratio 1.2 (1-3); EGFR African American 61.1 (>60); EGFR Non-African American 50.5 (>60); Globulin 3.7 g/dL (2-4); Total Bilirubin 0.5 mg/dL (0.2-1.0); Total Protein 8.1 g/dL (6.4-8.9)
[2019-05-16 20:55] LABS: Potassium 5.1 mmol/L (3.5-5.0); Troponin I 0.03 ng/mL (<0.04)
[2019-05-16] MEDS ORDERED: NS 0.9% 1000 ML** 1,000 ML IV ONE (21:07)
[2019-05-16] MEDS ORDERED: Iodixanol* (CONTRAST) 320 MG/ML 100 ML SDV IV ONE (21:42)
[2019-05-16 23:10] VITALS: BP 165/86
== END 2019-05-16 23:10 | disposition home or self-care (01) ==
LOC: ED 16:44
DX: R42 Dizziness and giddiness (principal); H61.22 Impacted cerumen, left ear; R51 Headache; I11.0 Hypertensive heart disease with heart failure; I50.9 Heart failure, unspecified; Z79.82 Long term (current) use of aspirin; Z95.810 Presence of automatic (implantable) cardiac defibrillator
CPT/HCPCS: 36415; 70450; 70496; 70498; 80053; 83605; 84484; 85025; 93005; 99283; Q9967

== ENCOUNTER 2021-02-06 09:58 | Inpatient (IN) ==
[2021-02-06 12:50] LABS: ABS Basophils 0.1 10^3/ul (0-0.2); ABS Eosinophils 0.3 10^3/ul (0-0.6); ABS Lymphocytes 0.7 10^3/ul (1.0-4.8); ABS Monocytes 0.9 10^3/ul (0-0.8); ABS Neutrophils 4.9 10^3/ul (1.5-7.7); Eosinophil % 4.6 %; Hematocrit 46 % (42-52); Hemoglobin 15.2 g/dL (14.0-18.0); Lymphocyte % 10.2 %; Mean Corpuscular HGB Conc 33 g/dL (31-36); Mean Corpuscular Hemoglobin 30 pg (27-31); Mean Corpuscular Volume 92 fL (80-94); Mean Platelet Volume 7.6 fL (7.4-10.4); Platelet Count 181 10^3/uL (150-450); Red Blood Count 5.01 10^6 /uL (4.18-5.48); Red Cell Distribution Width 17 % (10-15); White Blood Count 6.9 10^3/uL (3.5-10.8)
[2021-02-06 13:07] LABS: Albumin 4.5 g/dL (3.2-5.2); Albumin/Globulin Ratio 1.4 (1-3); C Reactive Protein 11.99 mg/L (<8.01); Calcium 10.1 mg/dL (8.6-10.3); EGFR African American 58.8 (>60); EGFR Non-African American 48.6 (>60); Globulin 3.3 g/dL (2-4); Potassium 4.4 mmol/L (3.5-5.0); Total Bilirubin 0.8 mg/dL (0.2-1.0); Total Protein 7.8 g/dL (6.4-8.9)
[2021-02-06] MEDS ORDERED: Cefepime 1 GM in Dextrose 1 GM/50 ML BAG IV ONE (13:22)
[2021-02-06] MEDS ORDERED: Vancomycin 2,000 MG in NS 0.9% 500 ml BAG 500 ML IVPB ONE (14:30)
[2021-02-06] MEDS ORDERED: Vancomycin per Pharmacy 1 EA NOTE FOLLOW UP SCH (16:00)
[2021-02-06] MEDS ORDERED: CMCS:Dabigatran 150 mg CAP (NF) PO SCH (17:00)
[2021-02-07] MEDS: Cefepime 1 GM in Dextrose 1 GM/50 ML BAG IV SCH ×2 (02:19→13:52)
[2021-02-07 05:13] LABS: ABS Eosinophils 0.2 10^3/ul (0-0.6); ABS Lymphocytes 0.6 10^3/ul (1.0-4.8); ABS Monocytes 1.1 10^3/ul (0-0.8); ABS Neutrophils 5.6 10^3/ul (1.5-7.7); Eosinophil % 2.4 %; Hematocrit 43 % (42-52); Hemoglobin 14.2 g/dL (14.0-18.0); Lymphocyte % 7.5 %; Mean Corpuscular HGB Conc 33 g/dL (31-36); Mean Corpuscular Hemoglobin 31 pg (27-31); Mean Corpuscular Volume 93 fL (80-94); Platelet Count 169 10^3/uL (150-450); Red Blood Count 4.66 10^6 /uL (4.18-5.48); Red Cell Distribution Width 17 % (10-15); White Blood Count 7.5 10^3/uL (3.5-10.8)
[2021-02-07 05:41] LABS: C Reactive Protein 57.58 mg/L (<8.01); EGFR African American 64.6 (>60); EGFR Non-African American 53.4 (>60); Potassium 4.2 mmol/L (3.5-5.0)
[2021-02-07] MEDS: Vancomycin 1,250 MG in NS 0.9% 250 ml 250 ML IVPB SCH (15:05)
[2021-02-07] MEDS: CMCS:Dutasteride 0.5 mg CAP (NF) PO SCH (17:02)
[2021-02-08] MEDS: Cefepime 1 GM in Dextrose 1 GM/50 ML BAG IV SCH ×2 (02:19→14:50)
[2021-02-08 05:57] LABS: ABS Eosinophils 0.3 10^3/ul (0-0.6); ABS Lymphocytes 0.7 10^3/ul (1.0-4.8); ABS Neutrophils 3.8 10^3/ul (1.5-7.7); Eosinophil % 5.7 %; Hematocrit 45 % (42-52); Hemoglobin 14.9 g/dL (14.0-18.0); Lymphocyte % 12.2 %; Mean Corpuscular HGB Conc 33 g/dL (31-36); Mean Corpuscular Hemoglobin 31 pg (27-31); Mean Corpuscular Volume 94 fL (80-94); Mean Platelet Volume 7.8 fL (7.4-10.4); Platelet Count 152 10^3/uL (150-450); Red Blood Count 4.84 10^6 /uL (4.18-5.48); Red Cell Distribution Width 17 % (10-15)
[2021-02-08 06:15] LABS: Calcium 9.1 mg/dL (8.6-10.3); EGFR African American 64.6 (>60); EGFR Non-African American 53.4 (>60); Magnesium 2.1 mg/dL (1.9-2.7); Potassium 4.4 mmol/L (3.5-5.0)
[2021-02-08 09:01] LABS: C Reactive Protein 79.7 mg/L (<8.01)
[2021-02-08] MEDS ORDERED: Lidocaine 1% VIAL 10 MG/ML VIAL INJ ONE (12:09)
[2021-02-08] MEDS: Vancomycin 1,250 MG in NS 0.9% 250 ml 250 ML IVPB SCH (15:49)
[2021-02-08] MEDS: CMCS:Dutasteride 0.5 mg CAP (NF) PO SCH (18:03)
[2021-02-08] MEDS ORDERED: cefTRIAXone 1 gm/50 mL NS BAG 1 GM/50 ML BAG IVPB SCH (20:00)
[2021-02-08] MEDS: metroNIDAZOLE IV 500 MG/100ML 500 MG/100 ML BAG IVPB SCH (21:17)
[2021-02-09] MEDS: metroNIDAZOLE IV 500 MG/100ML 500 MG/100 ML BAG IVPB SCH ×2 (03:35→11:53)
[2021-02-09 07:29] VITALS: BP 113/59
[2021-02-09] MEDS ORDERED: Vancomycin Trough Check NOTE FOLLOW UP ONE (14:00)
[2021-02-10] MEDS ORDERED: DALVANCE 1500 MG IV ONCE (for CrCl >/= 30 or regular HD) IVPB ONE (13:30)
== END 2021-02-09 15:34 | disposition home or self-care (01) | DRG 603 ==
LOC: ED 09:58 → SSU 14:00
PROVIDERS: ADMIT Internal Medicine; ATTEND Hospitalist